=== PATIENT | male | born 1950 | race Caucasian/White ===

== ENCOUNTER 2021-02-20 16:41 | Inpatient (IN) | payer MEDICARE ==
--- NOTE | 2021-02-20 17:10 | ED ---
General Adult HPI - General Chief complaint: Shortness of Breath Stated complaint: SOB Time Seen by Provider: 02/20/21 17:01 Source: patient, EMS Mode of arrival: EMS Limitations: no limitations - History of Present Illness Initial comments: Patient presents the ED by ambulance for evaluation. Patient states that he suddenly became dyspneic about 2 hours ago after ambulating to the bathroom. Patient states that he gave himself a home neb treatment, and he states that his dyspnea has now improved significantly. Patient states that he has a history of COPD, and he states that he has a home nebulizer machine. Patient denies having any pain, fever or chills, headache, focal neuro deficit, chest pain or pressure, cough or cold symptoms, palpitations, dizziness, nausea/vomiting/diarrhea, abdominal pain, decreased urine output, dysuria or urinary symptoms, leg or calf swelling or pain, or any other symptoms or complaints. Patient states that he had his second dose of the Moderna Covid vaccine exactly 2 weeks ago today. - Related Data Allergies Allergy/AdvReac Type Severity Reaction Status Date / Time Sulfa (Sulfonamide Allergy Unknown Verified 02/20/21 16:49 Antibiotics) Review of Systems ROS Statement: Those systems with pertinent positive or pertinent negative responses have been documented in the HPI. ROS Other: All systems not noted in ROS Statement are negative. Past Medical History Past Medical History: COPD History of Any Multi-Drug Resistant Organisms: None Reported Past Surgical History: No Surgical Hx Reported Past Psychological History: No Psychological Hx Reported Smoking Status: Former smoker Past Alcohol Use History: None Reported Past Drug Use History: None Reported General Exam Limitations: no limitations General appearance: alert, in no apparent distress Head exam: Present: atraumatic, normocephalic Eye exam: Present: normal appearance, EOMI ENT exam: Present: mucous membranes moist Neck exam: Present: other (Trachea is in midline) Respiratory exam: Present: normal lung sounds bilaterally, other (Equal breath sounds bilaterally; scattered inspiratory and expiratory wheezes bilaterally). Absent: respiratory distress, rales, rhonchi, stridor Cardiovascular Exam: Present: regular rate, normal rhythm, normal heart sounds, other (Normal radial pulses bilaterally) GI/Abdominal exam: Present: soft. Absent: distended, tenderness, guarding Extremities exam: Present: other (Negative Homans sign bilaterally). Absent: tenderness, pedal edema, calf tenderness Neurological exam: Present: alert, oriented X3. Absent: motor sensory deficit Psychiatric exam: Present: normal affect, normal mood Skin exam: Present: warm, dry, intact, normal color Course Vital Signs 02/20/21 02/20/21 02/20/21 16:42 17:31 17:38 Temperature 97.7 F Pulse Rate 105 H 94 99 Respiratory 20 Rate Blood Pressure 153/106 O2 Sat by Pulse 99 Oximetry 02/20/21 02/20/21 20:00 20:28 Temperature Pulse Rate 98 96 Respiratory 18 18 Rate Blood Pressure 163/92 O2 Sat by Pulse 99 99 Oximetry - Reevaluation(s) Reevaluation #1: 02/20/21 20:00 Case, H&P, test results and ED management thus far discussed with CORINNE David. He accepts hospital admission on behalf of himself and Dr. Muro. He recommends cardiology consultation. He has no further recommendations at this time. 02/20/21 20:39 Patient states that his dyspnea has now improved, and he denies development of any new symptoms while in the ED. Patient is currently breathing comfortably. Patient is aware of his test results, and he agrees with hospital admission at this time. EKG Findings - EKG Comments: EKG Findings:: Normal sinus rhythm, ventricular rate of 95 bpm, normal ME and QRS intervals, normal QT interval, normal axis, anterolateral ST and T-wave abnormality, no old EKG is available for comparison at this time Medical Decision Making - Medical Decision Making Given the patient's sudden onset of dyspnea a couple hours prior to ED arrival and the abnormal appearance of his EKG with no comparison EKG available at this time, will admit the patient to the hospital for cardiac monitoring and serial troponins. Patient's initial troponin is within normal limits, but is borderline. The rest of the patient's labs are fairly unremarkable. He shouldn't imaging studies just show findings of COPD. CORINNE David has accepted hospital admission. An order for cardiology consultation was placed. - Lab Data Result diagrams: 02/20/21 17:18 02/20/21 17:18 Lab Results 02/20/21 02/20/21 02/20/21 Range/Units 17:18 17:18 17:18 WBC 11.7 H (3.8-10.6) k/uL RBC 4.83 (4.30-5.90) m/uL Hgb 15.7 (13.0-17.5) gm/dL Hct 45.8 (39.0-53.0) % MCV 94.7 (80.0-100.0) fL MCH 32.5 (25.0-35.0) pg MCHC 34.3 (31.0-37.0) g/dL RDW 13.1 (11.5-15.5) % Plt Count 379 (150-450) k/uL MPV 7.0 Neutrophils % 81 % Lymphocytes % 9 % Monocytes % 8 % Eosinophils % 1 % Basophils % 0 % Neutrophils # 9.5 H (1.3-7.7) k/uL Lymphocytes # 1.0 (1.0-4.8) k/uL Monocytes # 0.9 (0-1.0) k/uL Eosinophils # 0.1 (0-0.7) k/uL Basophils # 0.0 (0-0.2) k/uL PT 10.9 (9.0-12.0) sec INR 1.0 (<1.2) APTT 22.2 (22.0-30.0) sec D-Dimer 1.18 H (<0.60) mg/L FEU Sodium 132 L (137-145) mmol/L Potassium 5.0 (3.5-5.1) mmol/L Chloride 97 L (98-107) mmol/L Carbon Dioxide 26 (22-30) mmol/L Anion Gap 9 mmol/L BUN 17 (9-20) mg/dL Creatinine 0.60 L (0.66-1.25) mg/dL Est GFR (CKD-EPI)AfAm >90 (>60 ml/min/1.73 sqM) Est GFR (CKD-EPI)NonAf >90 (>60 ml/min/1.73 sqM) Glucose 108 H (74-99) mg/dL Plasma Lactic Acid Reynold (0.7-2.0) mmol/L Calcium 9.4 (8.4-10.2) mg/dL Total Bilirubin 0.5 (0.2-1.3) mg/dL AST 42 (17-59) U/L ALT 50 H (4-49) U/L Alkaline Phosphatase 70 (38-126) U/L Troponin I (0.000-0.034) ng/mL NT-Pro-B Natriuret Pep pg/mL Total Protein 6.8 (6.3-8.2) g/dL Albumin 4.3 (3.5-5.0) g/dL Coronavirus (PCR) (Not Detectd) 02/20/21 02/20/21 02/20/21 Range/Units 17:18 17:18 17:18 WBC (3.8-10.6) k/uL RBC (4.30-5.90) m/uL Hgb (13.0-17.5) gm/dL Hct (39.0-53.0) % MCV (80.0-100.0) fL MCH (25.0-35.0) pg MCHC (31.0-37.0) g/dL RDW (11.5-15.5) % Plt Count (150-450) k/uL MPV Neutrophils % % Lymphocytes % % Monocytes % % Eosinophils % % Basophils % % Neutrophils # (1.3-7.7) k/uL Lymphocytes # (1.0-4.8) k/uL Monocytes # (0-1.0) k/uL Eosinophils # (0-0.7) k/uL Basophils # (0-0.2) k/uL PT (9.0-12.0) sec INR (<1.2) APTT (22.0-30.0) sec D-Dimer (<0.60) mg/L FEU Sodium (137-145) mmol/L Potassium (3.5-5.1) mmol/L Chloride (98-107) mmol/L Carbon Dioxide (22-30) mmol/L Anion Gap mmol/L BUN (9-20) mg/dL Creatinine (0.66-1.25) mg/dL Est GFR (CKD-EPI)AfAm (>60 ml/min/1.73 sqM) Est GFR (CKD-EPI)NonAf (>60 ml/min/1.73 sqM) Glucose (74-99) mg/dL Plasma Lactic Acid Reynold 1.3 (0.7-2.0) mmol/L Calcium (8.4-10.2) mg/dL Total Bilirubin (0.2-1.3) mg/dL AST (17-59) U/L ALT (4-49) U/L Alkaline Phosphatase (38-126) U/L Troponin I 0.034 (0.000-0.034) ng/mL NT-Pro-B Natriuret Pep 2210 pg/mL Total Protein (6.3-8.2) g/dL Albumin (3.5-5.0) g/dL Coronavirus (PCR) (Not Detectd) 02/20/21 Range/Units 17:18 WBC (3.8-10.6) k/uL RBC (4.30-5.90) m/uL Hgb (13.0-17.5) gm/dL Hct (39.0-53.0) % MCV (80.0-100.0) fL MCH (25.0-35.0) pg MCHC (31.0-37.0) g/dL RDW (11.5-15.5) % Plt Count (150-450) k/uL MPV Neutrophils % % Lymphocytes % % Monocytes % % Eosinophils % % Basophils % % Neutrophils # (1.3-7.7) k/uL Lymphocytes # (1.0-4.8) k/uL Monocytes # (0-1.0) k/uL Eosinophils # (0-0.7) k/uL Basophils # (0-0.2) k/uL PT (9.0-12.0) sec INR (<1.2) APTT (22.0-30.0) sec D-Dimer (<0.60) mg/L FEU Sodium (137-145) mmol/L Potassium (3.5-5.1) mmol/L Chloride (98-107) mmol/L Carbon Dioxide (22-30) mmol/L Anion Gap mmol/L BUN (9-20) mg/dL Creatinine (0.66-1.25) mg/dL Est GFR (CKD-EPI)AfAm (>60 ml/min/1.73 sqM) Est GFR (CKD-EPI)NonAf (>60 ml/min/1.73 sqM) Glucose (74-99) mg/dL Plasma Lactic Acid Reynold (0.7-2.0) mmol/L Calcium (8.4-10.2) mg/dL Total Bilirubin (0.2-1.3) mg/dL AST (17-59) U/L ALT (4-49) U/L Alkaline Phosphatase (38-126) U/L Troponin I (0.000-0.034) ng/mL NT-Pro-B Natriuret Pep pg/mL Total Protein (6.3-8.2) g/dL Albumin (3.5-5.0) g/dL Coronavirus (PCR) Not Detected (Not Detectd) - Radiology Data Radiology results: report reviewed (Chest x-ray: Diffuse COPD; CT angiography chest: COPD with no diagnostic evidence of pulmonary embolism, age indeterminant compression deformity upper thoracic spine) Disposition Clinical Impression: COPD exacerbation, Abnormal EKG Disposition: ADMITTED IP TO THIS HOSP Condition: Stable When asked, does pt state using other controlled substances?: No Time of Disposition: 20:00
[2021-02-20] MEDS ORDERED: predniSONE 20 MG TAB PO STA (17:16)
[2021-02-20] MEDS ORDERED: IPRATROPIUM-ALBUTEROL 3 ML NEB INHALATION STA (17:16)
[2021-02-20 17:35] LABS: Basophils % (A) 0 %; Eosinophils # (A) 0.1 k/uL (0-0.7); Eosinophils % (A) 1 %; HCT 45.8 % (39.0-53.0); HGB 15.7 gm/dL (13.0-17.5); Lymphocytes % (A) 9 %; MCH 32.5 pg (25.0-35.0); MCHC 34.3 g/dL (31.0-37.0); MCV 94.7 fL (80.0-100.0); Monocytes # (A) 0.9 k/uL (0-1.0); Monocytes % (A) 8 %; Neutrophils # (A) 9.5 k/uL (1.3-7.7); Neutrophils % (A) 81 %; Platelet Count 379 k/uL (150-450); RBC 4.83 m/uL (4.30-5.90); RDW 13.1 % (11.5-15.5); WBC 11.7 k/uL (3.8-10.6)
[2021-02-20 17:41] LABS: ALT 50 U/L (4-49); AST 42 U/L (17-59); African American GFR (CKD) >90 (>60 ml/min/1.73 sqM); Albumin 4.3 g/dL (3.5-5.0); Alkaline Phosphatase 70 U/L (38-126); Anion Gap 9 mmol/L; Blood Urea Nitrogen 17 mg/dL (9-20); Calcium 9.4 mg/dL (8.4-10.2); Carbon Dioxide 26 mmol/L (22-30); Chloride 97 mmol/L (98-107); Glucose 108 mg/dL (74-99); Non-African American GFR(CKD) >90 (>60 ml/min/1.73 sqM); Sodium 132 mmol/L (137-145); Total Bilirubin 0.5 mg/dL (0.2-1.3); Total Protein 6.8 g/dL (6.3-8.2)
[2021-02-20 17:45] LABS: Partial Thromboplastin Time 22.2 sec (22.0-30.0); Prothrombin Time 10.9 sec (9.0-12.0)
[2021-02-20] MEDS ORDERED: ASPIRIN 81 MG PO STA (17:54)
[2021-02-20 18:05] LABS: D-Dimer 1.18 mg/L FEU (<0.60)
[2021-02-20] MEDS ORDERED: SODIUM CHLORIDE 0.9% 500 ML 500 ML IV ONE (18:05)
--- NOTE | 2021-02-20 18:08 | XR ---
EXAMINATION TYPE: XR chest 2V DATE OF EXAM: 02/20/2021 COMPARISON: 11/20/2012 TECHNIQUE: PA and lateral views submitted. HISTORY: Difficulty breathing FINDINGS: The lungs are clear and there is no pneumothorax, pleural effusion, or focal pneumonia. Hyperinflat ion suggests COPD. Suspected chronic rib deformities. Hypertrophic and degenerative change of the spi ne. There is a moderate wedge deformity midthoracic region of indeterminate age. IMPRESSION: 1. Diffuse COPD.
--- NOTE | 2021-02-20 20:08 | CT ---
EXAMINATION TYPE: CT chest angio for PE DATE OF EXAM: 02/20/2021 COMPARISON: 11/20/2012 HISTORY: Dyspnea and elevated d-dimer. CT DLP: 229.3 mGycm Automated exposure control for dose reduction was used. CONTRAST: CT Chest for pulmonary embolism performed with with IV Contrast, patient injected with 100ml mL of Is ovue 370. FINDINGS: LUNGS: The lungs are grossly clear, there is no concerning parenchymal mass or nodule identified. T here is no pleural effusion or pneumothorax seen. The tracheobronchial tree is patent. Hyperinflatio n suggests COPD. Incidental note made of an azygos lobe and fissure. MEDIASTINUM: There is satisfactory enhancement of the pulmonary artery and its branches, there is no CT evidence for pulmonary embolism. There are no greater than 1 cm hilar or mediastinal lymph nodes. No pericardial effusion is seen. Coronary artery atherosclerotic changes noted. OTHER: Multiple chronic appearing rib fractures noted. Moderate to severe in age-indeterminate compr ession fracture upper thoracic spine IMPRESSION: 1. COPD with no diagnostic evidence of pulmonary embolism. 2. Age-indeterminate compression deformity upper thoracic spine.
[2021-02-20] MEDS ORDERED: METOPROLOL TARTRATE 5 MG/5 ML VIAL IVP STA (23:32)
[2021-02-20] MEDS ORDERED: DILTIAZEM DRIP BOLUS FROM BAG 1 MG SOLN IV ONE (23:32)
[2021-02-20] MEDS ORDERED: HEPARIN SODIUM 1,000 UN/ML (10ML VL) IV ONE (23:38)
[2021-02-20] MEDS ORDERED: HEPARIN SODIUM 1,000 UN/ML (10ML VL) IV PRN (23:38)
[2021-02-20] MEDS ORDERED: DILTIAZEM 125 MG in SODIUM CHLORIDE 0.9% 100 ML IV SCH (23:45)
[2021-02-21] MEDS: HEPARIN SOD,PORK IN 0.45% NACL 25,000 UNIT in 0.45% NACL 1 250ML.BAG IV SCH (00:17)
[2021-02-21 00:49] LABS: Partial Thromboplastin Time 22.5 sec (22.0-30.0); Prothrombin Time 10.8 sec (9.0-12.0)
[2021-02-21] MEDS: IPRATROPIUM-ALBUTEROL 3 ML NEB INHALATION SCH ×6 (02:00→19:56)
[2021-02-21] MEDS ORDERED: IPRATROPIUM-ALBUTEROL 3 ML NEB INHALATION PRN (03:34)
--- NOTE | 2021-02-21 09:39 | P.CNPUL ---
History of Present Illness Consult date: 02/21/21 Requesting physician: August Muro Reason for consult: COPD Chief complaint: Shortness of breath History of present illness: This is a 70-year-old white male with history of COPD which was diagnosed over 12 years ago. Patient is at least a [id number] smoker, quit smoking about 15 years ago. Patient is maintained on bronchodilators in the form of updrafts/DuoNeb, is also on trelegy 1 puff daily. Never seen a [employer] before. His COPD is being managed by his primary care physician. Patient describes chronic shortness of breath with any activity. He is however not O2 dependent and not prednisone dependent. Patient was brought into the ER yesterday with sudden onset of shortness of breath, it happened while he was going to the bathroom. Patient gave himself an updraft treatment and his shortness of breath improved a bit, but he did not go back to his baseline. Hence he was brought into the ER, CT angiogram of the chest was negative for thromboembolic disease. No evidence of infiltrates. Patient was admitted, and this consult was initiated. Patient denies any headache no blurred vision no dizziness denies any chest pain, denies any wheezing. Denies any palpitations, no fever no chills no hemoptysis. Denies any nausea vomiting abdominal pain melena or hematemesis. Denies any dysuria frequency or urgency. His labs were basically unremarkable. His electrolytes were relatively normal. Renal profile was normal. Lactic acid was 1.3. Troponin was a bit elevated at 0.204, initially on admission was 0.034 hence the patient was started on heparin, and cardiology was consulted. Again the patient had no cardiac symptoms whatsoever during this presentation Review of Systems Constitutional: Negative HEENT: Negative Cardiac: Negative Pulmonary: As noted in HPI. GI: Negative Genitourinary: Negative Musculoskeletal: Negative Endocrine: Negative Hematologic: Negative Psychiatric: Negative Skin: Negative Neurologic: Negative Past Medical History Past Medical History: COPD History of Any Multi-Drug Resistant Organisms: None Reported Past Surgical History: No Surgical Hx Reported Past Psychological History: Depression Smoking Status: Former smoker Past Alcohol Use History: None Reported Past Drug Use History: None Reported - Past Family History Mother Family Medical History: COPD, CVA/TIA Medications and Allergies Home Medications Medication Instructions Recorded Confirmed Type Albuterol Sulfate [Ventolin HFA] 2 puff INHALATION RT-QID PRN 02/20/21 02/20/21 History Fluticasone/Umeclidin/Vilanter 1 puff INHALATION RT-DAILY 02/20/21 02/20/21 History [Liliya Ellipta 100-62.5-25] Ipratropium-Albuterol Nebulize 3 ml INHALATION RT-QID 02/20/21 02/20/21 History [Duoneb 0.5 mg-3 mg/3 ml Soln] Meloxicam 15 mg PO DAILY 02/20/21 02/20/21 History predniSONE 5 mg PO TID 02/20/21 02/20/21 History guaiFENesin [Mucinex] 600 mg PO DAILY 02/21/21 02/21/21 History Allergies Allergy/AdvReac Type Severity Reaction Status Date / Time Sulfa (Sulfonamide Allergy Unknown Verified 02/20/21 20:49 Antibiotics) Physical Exam Vitals: Vital Signs Temp Pulse Pulse Resp BP BP Pulse Ox 02/21/21 08:08 100 02/21/21 07:58 94 02/21/21 07:00 97.5 F L 90 16 121/71 98 02/21/21 03:31 102 H 95 02/21/21 02:00 98.0 F 102 H 18 119/79 96 02/21/21 01:12 97.7 F 118 H 24 143/95 96 02/20/21 23:00 98.4 F 99 18 151/92 96 02/20/21 22:00 98 18 94 L 02/20/21 21:00 85 18 02/20/21 20:28 96 18 163/92 99 02/20/21 20:00 98 18 99 02/20/21 17:38 99 02/20/21 17:31 94 02/20/21 16:42 97.7 F 105 H 20 153/106 99 Intake and Output 02/20/21 02/21/21 02/21/21 22:59 06:59 14:59 Output Total 600 600 Balance -600 -600 Output: Urine 600 600 Other: Voiding Method Urinal # Voids 1 Weight 70.76 kg 70.76 kg Physical Exam: Revealed 70-year-old white male in no distress, on 2 L nasal cannula, and his O2 saturations 98% Head: Atraumatic, normocephalic. HEENT:[Neck is supple.] [No neck masses.] [No thyromegaly.] [No JVD.] Chest: [Symmetrical chest expansion, diminished breath sound bilaterally minimal fine wheezing on forced expiratory maneuver only. No chest wall tenderness. Cardiac Exam: [Normal S1 and S2, no S3 gallop, no murmur.] Abdomen: [Soft, nontender, no megaly, no rebound, no guarding, normal bowel sounds.] Extremities: [No clubbing, no edema, no cyanosis.] Good pulses bilaterally Neurological Exam: [No focal neurologic deficit.] Alert and oriented 3. Musculoskeletal: No deformities noted limitation of range of motion Skin: No rashes, no clubbing. Psychiatric: Normal mood affect and normal mental status examination. Results - Laboratory Findings CBC and BMP: 02/20/21 17:18 02/20/21 17:18 PT/INR, D-dimer PT 10.8 sec (9.0-12.0) 02/21/21 00:06 INR 1.0 (<1.2) 02/21/21 00:06 D-Dimer 1.18 mg/L FEU (<0.60) H 02/20/21 17:18 Abnormal lab findings: Abnormal Labs 02/20/21 02/20/21 02/20/21 17:18 17:18 17:18 WBC 11.7 H Neutrophils # 9.5 H APTT D-Dimer 1.18 H Sodium 132 L Chloride 97 L Creatinine 0.60 L Glucose 108 H ALT 50 H Troponin I 02/20/21 02/21/21 02/21/21 21:57 00:06 06:53 WBC Neutrophils # APTT 34.6 H D-Dimer Sodium Chloride Creatinine Glucose ALT Troponin I 0.204 H* 0.205 H* - Diagnostic Findings Chest x-ray: image reviewed CT scan - chest: image reviewed (As noted in HPI.) Assessment and Plan Assessment: Impression: Acute exacerbation of COPD Possible non-ST elevation myocardial infarction Remote smoking history/ex-smoker. Recommendation: Continue present course of treatment including bronchodilators, Solu-Medrol, DuoNeb updrafts 4 times a day and when necessary, aspirin, heparin, Cardiac consultation for his elevated troponin and decision will be made by cardiology regarding his heparin. I expect that the patient will do quite well in the next 24 hours, that he could be transitioned to prednisone orally and could be considered for discharge planning as long as he is cleared by cardiology. We'll continue to follow Time with Patient: Greater than 30
[2021-02-21 10:34] LABS: Basophils # (A) 0.03 X 10*3/uL (0.00-0.10); Basophils % (A) 0.3 %; Eosinophils # (A) 0 X 10*3/uL (0.04-0.35); Eosinophils % (A) 0 %; HCT 44.3 % (39.6-50.0); HGB 15.1 g/dL (13.0-17.0); Lymphocytes # (A) 1.21 X 10*3/uL (0.90-5.00); Lymphocytes % (A) 10.3 %; MCH 32.3 pg (27.0-32.0); MCHC 34.1 g/dL (32.0-37.0); MCV 94.7 fL (80.0-97.0); Mean Platelet Volume 9.4 fL (9.5-12.2); Monocytes # (A) 1.07 X 10*3/uL (0.20-1.00); Monocytes % (A) 9.1 %; Neutrophils # (A) 9.39 X 10*3/uL (1.80-7.70); Neutrophils % (A) 79.6 %; Platelet Count 356 X 10*3/uL (140-440); RBC 4.68 X 10*6/uL (4.40-5.60); RDW 13.3 % (11.5-14.5); WBC 11.78 X 10*3/uL (4.50-10.00)
[2021-02-21 10:55] LABS: African American GFR (CKD) 117.2 (60.0-200.0); Albumin 4.3 g/dL (3.80-4.90); Albumin/Globulin Ratio 2.69 (1.60-3.17); Anion Gap 7.2 mmol/L (4.00-12.00); Calcium 9.2 mg/dL (8.7-10.3); Carbon Dioxide 25.8 mmol/L (21.6-31.8); Globulin 1.6 g/dL (1.6-3.3); Non-African American GFR(CKD) 101.2 (60.0-200.0); Potassium 4.6 mmol/L (3.5-5.5); Total Bilirubin 0.8 mg/dL (0.3-1.2); Total Protein 5.9 g/dL (6.2-8.2)
--- NOTE | 2021-02-21 11:35 | ECHOF ---
Referral Reason:LV function, abnormal trops MEASUREMENTS -------- HEIGHT: 190.5 cm WEIGHT: 70.8 kg BP: RVIDd: 5.2 cm (< 3.3) IVSd: 1.2 cm (0.6 - 1.1) LVIDd: 4.1 cm (3.9 - 5.3) LVPWd: 1.1 cm (0.6 - 1.1) IVSs: 1.5 cm LVIDs: 2.9 cm LVPWs: 1.1 cm Ao Diam: 2.9 cm (2.0 - 3.7) AV Cusp: 1.6 cm (1.5 - 2.6) LA Diam: 3.2 cm (2.7 - 3.8) MV E Gustavo: 0.47 m/s MV DecT: 106 ms MV A Gustavo: 0.68 m/s MV E/A Ratio: 0.70 RAP: 5.00 mmHg RVSP: 37.42 mmHg FINDINGS -------- Sinus rhythm. This was a technically difficult study with suboptimal views. The left ventricular size is normal. There is mild concentric left ventricular hypertrophy. Overa ll left ventricular systolic function is normal with, an EF between 55 - 60 %. The right ventricle is severely enlarged. The left atrial size is normal. The right atrium is mildly enlarged. 5.0mg of Lumason was utilized for enhancement of images Interatrial and interventricular septum intact. Trace amount of aortic regurgitation. There is no evidence of aortic stenosis. The mitral valve was not well visualized. No mitral regurgitation. [id number] tricuspid regurgitation present. There is mild pulmonary hypertension. The right ventricular systolic pressure, as measured by Doppler, is 37.42mmHg. Trace/mild (physiologic) pulmonic regurgitation. The aortic root size is normal. IVC Not well visulized. There is no pericardial effusion. CONCLUSIONS -------- 1. The left ventricular size is normal. 2. There is mild concentric left ventricular hypertrophy. 3. Overall left ventricular systolic function is normal with, an EF between 55 - 60 %. 4. The right ventricle is severely enlarged. 5. The right atrium is mildly enlarged. 6. Trace amount of aortic regurgitation. 7. [id number] tricuspid regurgitation present. 8. There is mild pulmonary hypertension. 9. The right ventricular systolic pressure, as measured by Doppler, is 37.42mmHg. 10. Trace/mild (physiologic) pulmonic regurgitation. CLINICAL TRIAL DATA MANAGER: Kelsie Rodriguez RDCS
[2021-02-21] MEDS: methylPREDNISolone SOD SUCCI 125 MG/2 ML VIAL IV SCH ×2 (11:47→18:03)
[2021-02-21] MEDS ORDERED: IPRATROPIUM-ALBUTEROL 3 ML NEB INHALATION SCH (12:00)
--- NOTE | 2021-02-21 12:34 | P.CRDCN ---
History of Present Illness Consult date: 02/21/21 History of present illness: HISTORY OF PRESENT ILLNESS: This is a 70-year-old male with a past medical history significant for COPD, depression, and former nicotine dependence. 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 We have been asked to see the patient in consultation for abnormal EKG and shortness of breath. Patient examined at the bedside. Patient states yesterday after walking to the bathroom he began to feel very short of breath. He states he took an updraft treatment which usually helps his shortness of breath but this time it was not relieved. Patient reports feeling a little nauseated time. He denied any chest pain. He denied any pain in the arms or back. Denies fever or chills. EKG reveals sinus mechanism with T-wave inversions laterally and biphasic T waves in V3V4 Chest xray diffuse COPD Laboratory data: WBC 11.78. Hemoglobin 15.1. Platelet count 356. Sodium 134. Potassium 4.6. BUN 15. Creatinine 0.6. Troponin 0.034. 0.204. 0.205. BNP 2210 Current home cardiac medications include none Echocardiogram completed revealed ejection fraction 55-60%, trace amount of mitral regurgitation, [id number] tricuspid regurgitation, and mild pulmonary hypertension. REVIEW OF SYSTEMS: At the time of my exam: CONSTITUTIONAL: Denies fever or chills. HEENT: Denies blurred vision, vision changes, or eye pain. Denies hemoptysis CARDIOVASCULAR: Denies chest pain. Denies orthopnea. Denies PND. Denies palpitations RESPIRATORY: Denies shortness of breath. GASTROINTESTINAL: Denies abdominal pain. Denies nausea or vomiting. HEMATOLOGIC: Denies bleeding disorders. GENITOURINARY: Denies any blood in urine. SKIN: Denies pruitis. Denies rash. PHYSICAL EXAM: VITAL SIGNS: Reviewed. GENERAL: Well-developed in no acute distress. HEENT: Head is normocephalic. Pupils are equal, round. Sclerae anicteric. Mucous membranes of the mouth are moist. Neck supple. No JVD or thyromegaly LUNGS: Respirations even and unlabored. Lungs with decreased air exchange bilaterally. HEART: Regular rate and rhythm. S1 and S2 heard. ABDOMEN: Soft. Nondistended. Nontender. EXTREMITIES: Normal range of motion. No clubbing or cyanosis. Peripheral pulses intact. No lower extremity edema NEUROLOGIC: Awake and alert. Oriented x 3. ASSESSMENT: Shortness of breath Acute exacerbation of COPD Abnormal troponins, possible Non-STEMI Depression Former nicotine dependence PLAN: Consult pulmonary for evaluation of COPD Continue IV heparin for another 24 hours Add aspirin and lipitor Ischemic workup to be completed when patient is medically stable Further recommendations pending patient course Nurse practitioner note has been reviewed by physician. Signing provider agrees with the documented findings, assessment, and plan of care. Past Medical History Past Medical History: COPD History of Any Multi-Drug Resistant Organisms: None Reported Past Surgical History: No Surgical Hx Reported Past Psychological History: Depression Smoking Status: Former smoker Past Alcohol Use History: None Reported Past Drug Use History: None Reported - Past Family History Mother Family Medical History: COPD, CVA/TIA Medications and Allergies Home Medications Medication Instructions Recorded Confirmed Type Albuterol Sulfate [Ventolin HFA] 2 puff INHALATION RT-QID PRN 02/20/21 02/20/21 History Fluticasone/Umeclidin/Vilanter 1 puff INHALATION RT-DAILY 02/20/21 02/20/21 History [Trelegy Ellipta 100-62.5-25] Ipratropium-Albuterol Nebulize 3 ml INHALATION RT-QID 02/20/21 02/20/21 History [Duoneb 0.5 mg-3 mg/3 ml Soln] Meloxicam 15 mg PO DAILY 02/20/21 02/20/21 History predniSONE 5 mg PO TID 02/20/21 02/20/21 History guaiFENesin [Mucinex] 600 mg PO DAILY 02/21/21 02/21/21 History Allergies Allergy/AdvReac Type Severity Reaction Status Date / Time Sulfa (Sulfonamide Allergy Unknown Verified 02/20/21 20:49 Antibiotics) Physical Exam Vitals: Vital Signs Temp Pulse Pulse Resp BP BP Pulse Ox 02/21/21 08:08 100 02/21/21 08:00 19 02/21/21 07:58 94 02/21/21 07:00 97.5 F L 90 16 121/71 98 02/21/21 03:31 102 H 95 02/21/21 02:00 98.0 F 102 H 18 119/79 96 02/21/21 01:12 97.7 F 118 H 24 143/95 96 02/20/21 23:00 98.4 F 99 18 151/92 96 02/20/21 22:00 98 18 94 L 02/20/21 21:00 85 18 02/20/21 20:28 96 18 163/92 99 02/20/21 20:00 98 18 99 02/20/21 17:38 99 02/20/21 17:31 94 02/20/21 16:42 97.7 F 105 H 20 153/106 99 Intake and Output 02/20/21 02/21/21 02/21/21 22:59 06:59 14:59 Output Total 600 600 Balance -600 -600 Output: Urine 600 600 Other: Voiding Method Urinal # Voids 1 Weight 70.76 kg 70.76 kg Results 02/21/21 06:53 02/21/21 06:53 Cardiac Enzymes 02/20/21 02/20/21 02/20/21 Range/Units 17:18 17:18 21:57 AST 42 (17-59) U/L Troponin I 0.034 0.204 H* (0.000-0.034) ng/mL 02/21/21 02/21/21 Range/Units 00:06 06:53 AST 40 H (17-59) U/L Troponin I 0.205 H* (0.000-0.034) ng/mL Coagulation 02/20/21 02/21/21 02/21/21 Range/Units 17:18 00:06 06:53 PT 10.9 10.8 (9.0-12.0) sec APTT 22.2 22.5 34.6 H (22.0-30.0) sec CBC 02/20/21 02/21/21 Range/Units 17:18 06:53 WBC 11.7 H 11.78 H (3.8-10.6) k/uL RBC 4.83 4.68 (4.30-5.90) m/uL Hgb 15.7 15.1 (13.0-17.5) gm/dL Hct 45.8 44.3 (39.0-53.0) % Plt Count 379 356 (150-450) k/uL Comprehensive Metabolic Panel 02/20/21 02/21/21 Range/Units 17:18 06:53 Sodium 132 L 134 L (137-145) mmol/L Potassium 5.0 4.6 (3.5-5.1) mmol/L Chloride 97 L 101 (98-107) mmol/L Carbon Dioxide 26 25.8 (22-30) mmol/L BUN 17 15.0 (9-20) mg/dL Creatinine 0.60 L 0.6 (0.66-1.25) mg/dL Glucose 108 H 125 H (74-99) mg/dL Calcium 9.4 9.2 (8.4-10.2) mg/dL AST 42 40 H (17-59) U/L ALT 50 H 52 H (4-49) U/L Alkaline Phosphatase 70 67 (38-126) U/L Total Protein 6.8 5.9 L (6.3-8.2) g/dL Albumin 4.3 4.30 (3.5-5.0) g/dL Current Medications Generic Name Dose Route Start Last Admin Trade Name Freq PRN Reason Stop Dose Admin Albuterol/Ipratropium 3 ml 02/21/21 03:34 Ipratropium-Albuterol 3 Ml Neb INHALATION RT-QID PRN Shortness Of Breath Or Wheezing Albuterol/Ipratropium 3 ml 02/21/21 08:00 02/21/21 07:58 Ipratropium-Albuterol 3 Ml Neb INHALATION 3 ml RT-QID [facility] Administration Aspirin 81 mg 02/22/21 09:00 Aspirin 81 Mg PO DAILY [facility] Atorvastatin Calcium 40 mg 02/21/21 21:00 Atorvastatin 40 Mg Tab PO HS [facility] Budesonide/Formoterol Fumarate 2 puff 02/21/21 20:00 Symbicort 160-4.5 Mcg Inhaler INHALATION RT-BID [facility] Guaifenesin 600 mg 02/22/21 09:00 Guaifenesin 600 Mg Tablet.Er PO DAILY [facility] Heparin Sodium (Porcine) 0 unit 02/20/21 23:38 Heparin Sodium 1,000 Un/Ml (10ml Vl) IV PER PROTOCOL PRN Low PTT Protocol Heparin Sodium/Sodium Chloride 250 mls @ 8.491 mls/hr 02/20/21 23:45 02/21/21 00:17 25,000 unit/ Sodium Chloride IV 12 units/kg/hr .Q24H [facility] 8.491 mls/hr Administration Protocol 12 UNITS/KG/HR Sodium Chloride 1,000 mls @ 100 mls/hr 02/21/21 10:15 Saline 0.9% IV .Q10H [facility] Methylprednisolone Sodium Succinate 60 mg 02/21/21 12:00 Methylprednisolone Sod Succi 125 Mg/2 Ml Vial IV Q6HR [facility] Intake and Output 02/20/21 02/21/21 02/21/21 22:59 06:59 14:59 Output Total 600 600 Balance -600 -600 Output: Urine 600 600 Other: Voiding Method Urinal # Voids 1 Weight 70.76 kg 70.76 kg 02/21/21 06:53 02/21/21 06:53
--- NOTE | 2021-02-21 13:19 | P.HPIM ---
History of Present Illness Patient is pleasant 78-year-old male came in with comments of shortness of breath progressively worsening going on for few weeks, patient to was found to have COPD. Patient also complaining of cough syrup clear sputum production. P atient denied any fever chills CT of the chest did not show any pulmonary embolism no infiltrates on the CT. Patient was started on IV steroids, pulmonary evaluated the patient patient was discharged back to oral steroids and inhalational treatments. Patient is also found to have elevated troponins although patient denied any chest pain at this time, EKG showed lateral T-wave inversions and biphasic T waves, BNP of around 2210, troponins ranged between 0.0342 0.204 Review of Systems REVIEW OF SYSTEMS: CONSTITUTIONAL: No fever, no malaise, no fatigue. HEENT: No recent visual problems or hearing problems. Denied any sore throat. CARDIOVASCULAR: Noorthopnea, PND, no palpitations, no syncope. PULMONARY:, no hemoptysis. GASTROINTESTINAL: No diarrhea, no nausea, no vomiting, no abdominal pain. NEUROLOGICAL: No headaches, no weakness, no numbness. HEMATOLOGICAL: Denies any bleeding or petechiae. GENITOURINARY: Denies any burning micturition, frequency, or urgency. MUSCULOSKELETAL/RHEUMATOLOGICAL: Denies any joint pain, swelling, or any muscle pain. ENDOCRINE: Denies any polyuria or polydipsia. The rest of the 14-point review of systems is negative. Past Medical History Past Medical History: COPD History of Any Multi-Drug Resistant Organisms: None Reported Past Surgical History: No Surgical Hx Reported Past Psychological History: Depression Smoking Status: Former smoker Past Alcohol Use History: None Reported Past Drug Use History: None Reported - Past Family History Mother Family Medical History: COPD, CVA/TIA Medications and Allergies Home Medications Medication Instructions Recorded Confirmed Type Albuterol Sulfate [Ventolin HFA] 2 puff INHALATION RT-QID PRN 02/20/21 02/20/21 History Fluticasone/Umeclidin/Vilanter 1 puff INHALATION RT-DAILY 02/20/21 02/20/21 History [Trelegy Ellipta 100-62.5-25] Ipratropium-Albuterol Nebulize 3 ml INHALATION RT-QID 02/20/21 02/20/21 History [Duoneb 0.5 mg-3 mg/3 ml Soln] Meloxicam 15 mg PO DAILY 02/20/21 02/20/21 History predniSONE 5 mg PO TID 02/20/21 02/20/21 History guaiFENesin [Mucinex] 600 mg PO DAILY 02/21/21 02/21/21 History Allergies Allergy/AdvReac Type Severity Reaction Status Date / Time Sulfa (Sulfonamide Allergy Unknown Verified 02/20/21 20:49 Antibiotics) Physical Exam Vitals: Vital Signs Temp Pulse Pulse Resp BP BP Pulse Ox 02/21/21 11:53 94 02/21/21 11:39 98 02/21/21 08:08 100 02/21/21 08:00 19 02/21/21 07:58 94 02/21/21 07:00 97.5 F L 90 16 121/71 98 02/21/21 03:31 102 H 95 02/21/21 02:00 98.0 F 102 H 18 119/79 96 02/21/21 01:12 97.7 F 118 H 24 143/95 96 02/20/21 23:00 98.4 F 99 18 151/92 96 02/20/21 22:00 98 18 94 L 02/20/21 21:00 85 18 02/20/21 20:28 96 18 163/92 99 02/20/21 20:00 98 18 99 02/20/21 17:38 99 02/20/21 17:31 94 02/20/21 16:42 97.7 F 105 H 20 153/106 99 Intake and Output 02/20/21 02/21/21 02/21/21 22:59 06:59 14:59 Output Total 600 600 Balance -600 -600 Output: Urine 600 600 Other: Voiding Method Urinal # Voids 1 Weight 70.76 kg 70.76 kg PHYSICAL EXAMINATION: GENERAL: The patient is alert and oriented x3, not in any acute distress. Well developed, well nourished. HEENT: Pupils are round and equally reacting to light. EOMI. No scleral icterus. No conjunctival pallor. Normocephalic, atraumatic. No pharyngeal erythema. No thyromegaly. CARDIOVASCULAR: S1 and S2 present. No murmurs, rubs, or gallops. PULMONARY: Diminished air entry into bilateral lung lynch minimal expiratory w heezing on the right side diminished on the left side. ABDOMEN: Soft, nontender, nondistended, normoactive bowel sounds. No palpable organomegaly. MUSCULOSKELETAL: No joint swelling or deformity. EXTREMITIES: No cyanosis, clubbing, or pedal edema. NEUROLOGICAL: Gross neurological examination did not reveal any focal deficits. SKIN: No rashes. Results CBC & Chem 7: 02/21/21 06:53 02/21/21 06:53 Labs: Abnormal Lab Results - Last 24 Hours (Table) 02/20/21 02/20/21 02/20/21 Range/Units 17:18 17:18 17:18 WBC 11.7 H (3.8-10.6) k/uL MCH (27.0-32.0) pg MPV (9.5-12.2) fL Immature Gran # (0.00-0.04) X 10*3/uL Neutrophils # 9.5 H (1.3-7.7) k/uL Monocytes # (0.20-1.00) X 10*3/uL Eosinophils # (0.04-0.35) X 10*3/uL APTT (22.0-30.0) sec D-Dimer 1.18 H (<0.60) mg/L FEU Sodium 132 L (137-145) mmol/L Chloride 97 L (98-107) mmol/L Creatinine 0.60 L (0.66-1.25) mg/dL BUN/Creatinine Ratio (12.00-20.00) Ratio Glucose 108 H (74-99) mg/dL AST (14-35) U/L ALT 50 H (4-49) U/L Troponin I (0.000-0.034) ng/mL Total Protein (6.2-8.2) g/dL 02/20/21 02/21/21 02/21/21 Range/Units 21:57 00:06 06:53 WBC 11.78 H (3.8-10.6) k/uL MCH 32.3 H (27.0-32.0) pg MPV 9.4 L (9.5-12.2) fL Immature Gran # 0.08 H (0.00-0.04) X 10*3/uL Neutrophils # 9.39 H (1.3-7.7) k/uL Monocytes # 1.07 H (0.20-1.00) X 10*3/uL Eosinophils # 0 L (0.04-0.35) X 10*3/uL APTT (22.0-30.0) sec D-Dimer (<0.60) mg/L FEU Sodium (137-145) mmol/L Chloride (98-107) mmol/L Creatinine (0.66-1.25) mg/dL BUN/Creatinine Ratio (12.00-20.00) Ratio Glucose (74-99) mg/dL AST (14-35) U/L ALT (4-49) U/L Troponin I 0.204 H* 0.205 H* (0.000-0.034) ng/mL Total Protein (6.2-8.2) g/dL 02/21/21 02/21/21 Range/Units 06:53 06:53 WBC (3.8-10.6) k/uL MCH (27.0-32.0) pg MPV (9.5-12.2) fL Immature Gran # (0.00-0.04) X 10*3/uL Neutrophils # (1.3-7.7) k/uL Monocytes # (0.20-1.00) X 10*3/uL Eosinophils # (0.04-0.35) X 10*3/uL APTT 34.6 H (22.0-30.0) sec D-Dimer (<0.60) mg/L FEU Sodium 134 L (137-145) mmol/L Chloride (98-107) mmol/L Creatinine (0.66-1.25) mg/dL BUN/Creatinine Ratio 25.00 H (12.00-20.00) Ratio Glucose 125 H (74-99) mg/dL AST 40 H (14-35) U/L ALT 52 H (4-49) U/L Troponin I (0.000-0.034) ng/mL Total Protein 5.9 L (6.2-8.2) g/dL Thrombosis Risk Factor Assmnt - Choose All That Apply Any of the Below Risk Factors Present?: Yes Each Factor Represents 1 point: Abnormal pulmonary function (COPD) Other Risk Factors: Yes Each Risk Factor Represents 2 Points: Age 61-74 years Other congenital or acquired thrombophilia - If yes, enter type in comment: No Thrombosis Risk Factor Assessment Total Risk Factor Score: 3 Thrombosis Risk Factor Assessment Level: Moderate Risk Assessment and Plan Plan: -Acute exacerbation of COPD: Continue with the assistance in addition treatments -Elevated troponin and possibility of non-ST elevation myocardial infarction. Cardiology evaluated the patient further intervention as per them once his COPD is better -Chronic low back pain -Depression For above-mentioned chronic medical problems patient will resume appropriate home medications
[2021-02-21] MEDS: SODIUM CHLORIDE 0.9% 1,000 ML IV SCH ×2 (16:20→21:11)
[2021-02-21] MEDS: SYMBICORT 160-4.5 MCG INHALER INHALATION SCH (19:56)
[2021-02-21 21:04] LABS: Chol/HDL Ratio 2.96; LDL Cholesterol,Calculated 77.4 mg/dL (0.0-131.0); VLDL Calculation 12.6 mg/dL (5.00-40.00)
[2021-02-21] MEDS: ATORVASTATIN 40 MG TAB PO SCH (21:08)
[2021-02-22] MEDS: HEPARIN SOD,PORK IN 0.45% NACL 25,000 UNIT in 0.45% NACL 1 250ML.BAG IV SCH (00:27)
[2021-02-22] MEDS: methylPREDNISolone SOD SUCCI 125 MG/2 ML VIAL IV SCH ×2 (00:33→05:39)
[2021-02-22] MEDS: SODIUM CHLORIDE 0.9% 1,000 ML IV SCH ×2 (05:40→16:27)
[2021-02-22] MEDS ORDERED: NON FORMULARY DRUG (Fluticasone/Umeclidin/Vilanter [Trelegy Ellipta 100-62.5-25] 1 EACH Bl INHALATION SCH (08:00)
[2021-02-22] MEDS: guaiFENesin 600 MG TABLET.ER PO SCH (08:51)
[2021-02-22] MEDS ORDERED: ASPIRIN 81 MG PO SCH (09:00)
[2021-02-22] MEDS: IPRATROPIUM-ALBUTEROL 3 ML NEB INHALATION SCH ×4 (09:01→20:02)
[2021-02-22] MEDS: SYMBICORT 160-4.5 MCG INHALER INHALATION SCH ×2 (09:01→20:02)
--- NOTE | 2021-02-22 10:32 | P.PN ---
Subjective Progress Note Date: 02/22/21 Principal diagnosis: Acute exacerbation of COPD This is a 70-year-old white male with history of COPD which was diagnosed over 12 years ago. Patient is at least a [id number] smoker, quit smoking about 15 years ago. Patient is maintained on bronchodilators in the form of updr afts/DuoNeb, is also on trelegy 1 puff daily. 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 His COPD is being managed by his primary care physician. Patient describes chronic shortness of breath with any activity. He is however not O2 dependent and not prednisone dependent. Patient was brought into the ER yesterday with sudden onset of shortness of breath, it happened while he was going to the bathroom. Patient gave himself an updraft treatment and his shortness of breath improved a bit, but he did not go back to his baseline. Hence he was brought into the ER, CT angiogram of the chest was negative for thromboembolic disease. No evidence of infiltrates. Patient was admitted, and this consult was initiated. Patient denies any headache no blurred vision no dizziness denies any chest pain, denies any wheezing. Denies any palpitations, no fever no chills no hemoptysis. Denies any nausea vomiting abdominal pain melena or hematemesis. Denies any dysuria frequency or urgency. His labs were basically unremarkable. His electrolytes were relatively normal. Renal profile was normal. Lactic acid was 1.3. Troponin was a bit elevated at 0.204, initially on admission was 0.034 hence the patient was started on heparin, and cardiology was consulted. Again the patient had no cardiac symptoms whatsoever during this presentation Patient was reevaluated today on 02/22/2021, patient is doing much better today, breathing a lot easier. Less cough and less wheezing less shortness of breath. Remains on bronchodilators and IV Solu-Medrol. Remains on heparin for possible non-ST elevation myocardial infarction. Patient is to be seen by cardiology again today, and decision will be made regarding his heparin and whether to pursue any further diagnostic workup for coronary artery disease. Pulmonary- kendall the patient is doing much better, and I will go ahead and transition the patient from IV Solu-Medrol to oral prednisone. Plan to consider discharge planning from the pulmonary perspective in the next 24 hours. Objective - Vital Signs Vital signs: Vital Signs Temp 97.4 F L 02/22/21 07:09 Pulse 92 02/22/21 09:14 Resp 22 02/22/21 07:09 BP 117/78 02/22/21 07:09 Pulse Ox 98 02/22/21 07:09 Intake & Output 02/21/21 02/22/21 02/22/21 18:59 06:59 18:59 Intake Total 134.582 95.567 240 Output Total 275 Balance -140.418 95.567 240 Intake: Intake, IV Titration 134.582 95.567 Amount Heparin Sod,Pork in 0.45% 134.582 95.567 NaCl 25,000 unit In 0.45 % NaCl 1 250ml.bag @ 12 UNITS/KG/HR 8.491 mls/hr IV .Q24H [facility] Rx#: [id number] Oral 240 Output: Urine 275 Other: # Voids 2 2 - Exam Physical Exam: Revealed 70-year-old white male in no distress, on 2 L nasal cannula, and his O2 saturations 98% Head: Atraumatic, normocephalic. HEENT:[Neck is supple.] [No neck masses.] [No thyromegaly.] [No JVD.] Chest: [Symmetrical chest expansion, slightly diminished breath sounds at the bases no rhonchi and no wheezes. Cardiac Exam: [Normal S1 and S2, no S3 gallop, no murmur.] Abdomen: [Soft, nontender, no megaly, no rebound, no guarding, normal bowel sounds.] Extremities: [No clubbing, no edema, no cyanosis.] Good pulses bilaterally Neurological Exam: [No focal neurologic deficit.] Alert and oriented 3. Musculoskeletal: No deformities noted limitation of range of motion Skin: No rashes, no clubbing. Psychiatric: Normal mood affect and normal mental status examination. - Labs CBC & Chem 7: 02/21/21 06:53 02/21/21 06:53 Labs: Abnormal Lab Results - Last 24 Hours (Table) 02/21/21 02/21/21 02/21/21 Range/Units 06:53 06:53 23:21 WBC 11.78 H (4.50-10.00) X 10*3/uL MCH 32.3 H (27.0-32.0) pg MPV 9.4 L (9.5-12.2) fL Immature Gran # 0.08 H (0.00-0.04) X 10*3/uL Neutrophils # 9.39 H (1.80-7.70) X 10*3/uL Monocytes # 1.07 H (0.20-1.00) X 10*3/uL Eosinophils # 0 L (0.04-0.35) X 10*3/uL APTT 55.4 H (22.0-30.0) sec Sodium 134 L (135-145) mmol/L BUN/Creatinine Ratio 25.00 H (12.00-20.00) Ratio Glucose 125 H (70-110) mg/dL AST 40 H (14-35) U/L ALT 52 H (10-49) U/L Total Protein 5.9 L (6.2-8.2) g/dL Assessment and Plan Assessment: Impression: Acute exacerbation of COPD Possible non-ST elevation myocardial infarction Remote smoking history/ex-smoker. Recommendation: Continue present course of treatment including bronchodilators, prednisone to replace Solu-Medrol, DuoNeb updrafts 4 times a day and when necessary, aspirin, heparin, Cardiology to decide regarding his heparin and whether to pursue any further diagnostic workup for coronary artery disease. Consider discharge planning in the next 24 hours if cleared by cardiology. Time with Patient: Less than 30
[2021-02-22] MEDS: predniSONE 20 MG TAB PO SCH (13:10)
[2021-02-22] MEDS ORDERED: ALPRAZolam 0.5 MG TAB PO PRN (13:17)
[2021-02-22] MEDS ORDERED: ALPRAZolam 0.25 MG TAB PO PRN (13:17)
[2021-02-22] MEDS ORDERED: NITROGLYCERIN SL TABS 0.4 MG TAB SUBLINGUAL PRN (13:17)
--- NOTE | 2021-02-22 13:17 | P.PN ---
Subjective Progress Note Date: 02/22/21 HISTORY OF PRESENT ILLNESS: 02/21/2021 This is a 70-year-old male with a past medical history significant for COPD, depression, and former nicotine dependence. 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 We have been asked to see the patient in consultation for abnormal EKG and shortness of breath. Patient examined at the bedside. Patient states yesterday after walking to the bathroom he began to feel very short of breath. He states he took an updraft treatment which usually helps his shortness of breath but this time it was not relieved. Patient reports feeling a little nauseated time. He denied any chest pain. He denied any pain in the arms or back. Denies fever or chills. EKG reveals sinus mechanism with T-wave inversions laterally and biphasic T waves in V3V4 Chest xray diffuse COPD Laboratory data: WBC 11.78. Hemoglobin 15.1. Platelet count 356. Sodium 134. Potassium 4.6. BUN 15. Creatinine 0.6. Troponin 0.034. 0.204. 0.205. BNP 2210 Current home cardiac medications include none Echocardiogram completed revealed ejection fraction 55-60%, trace amount of mitral regurgitation, [id number] tricuspid regurgitation, and mild pulmonary hypertension. 02/22/2021 Patient examined this morning at the bedside. Patient continues to report shortness of breath. He denies chest pain or pressure. He remains on IV heparin. PHYSICAL EXAM: VITAL SIGNS: Reviewed. GENERAL: Well-developed in no acute distress. HEENT: Head is normocephalic. Pupils are equal, round. Sclerae anicteric. Mucous membranes of the mouth are moist. Neck supple. No JVD or thyromegaly LUNGS: Respirations even and unlabored. Lungs with decreased air exchange bilaterally, although improved from yesterday. HEART: Regular rate and rhythm. S1 and S2 heard. ABDOMEN: Soft. Nondistended. Nontender. EXTREMITIES: Normal range of motion. No clubbing or cyanosis. Peripheral pulses intact. No lower extremity edema NEUROLOGIC: Awake and alert. Oriented x 3. ASSESSMENT: Shortness of breath Acute exacerbation of COPD Abnormal troponins, possible Non-STEMI Depression Former nicotine dependence PLAN: Discontinue IV heparin Continue additional cardiac medications Patient to undergo cardiac cath tomorrow with Dr. Burris Further recommendations pending patient course Nurse practitioner note has been reviewed by physician. Signing provider agrees with the documented findings, assessment, and plan of care. Objective - Vital Signs Vital signs: Vital Signs Temp 97.4 F L 02/22/21 07:09 Pulse 92 02/22/21 09:14 Resp 22 02/22/21 07:09 BP 117/78 02/22/21 07:09 Pulse Ox 98 02/22/21 07:09 Intake & Output 02/21/21 02/22/21 02/22/21 18:59 06:59 18:59 Intake Total 134.582 95.567 240 Output Total 275 Balance -140.418 95.567 240 Intake: Intake, IV Titration 134.582 95.567 Amount Heparin Sod,Pork in 0.45% 134.582 95.567 NaCl 25,000 unit In 0.45 % NaCl 1 250ml.bag @ 12 UNITS/KG/HR 8.491 mls/hr IV .Q24H [facility] Rx#: [id number] Oral 240 Output: Urine 275 Other: # Voids 2 2 - Labs CBC & Chem 7: 02/21/21 06:53 02/21/21 06:53 Labs: Abnormal Lab Results - Last 24 Hours (Table) 02/21/21 Range/Units 23:21 APTT 55.4 H (22.0-30.0) sec
--- NOTE | 2021-02-22 14:27 | P.PN ---
Subjective Progress Note Date: 02/22/21 Patient is pleasant 78-year-old male came in with comments of shortness of breath progressively worsening going on for few weeks, patient to was found to have COPD. Patient also complaining of cough syrup clear sputum production. Patient denied any fever chills CT of the chest did not show any pulmonary embolism no infiltrates on the CT. Patient was started on IV steroids, pulmonary evaluated the patient patient was discharged back to oral steroids and inhalational treatments. Patient is also found to have elevated troponins although patient denied any chest pain at this time, EKG showed lateral T-wave inversions and biphasic T waves, BNP of around 2210, troponins ranged between 0.0342 0.204 02/22/2021 Patient is seen and evaluated in follow-up currently continues to be short of breath maintained on 2 L via nasal cannula. Patient was seen and evaluated by cardiology and undergoing cardiac catheterization in the morning. Patient states he feels much better on 2 L of oxygen and will do home O2 eval. Patient is maintained on DuoNeb treatments along with oral steroids and will continue. Patient was on IV heparin and discontinuing per cardiology. Will repeat a.m. labs. Review of systems: Constitutional: No reports of fatigue, fever, or chills Cardiovascular: Reports intermittent chest pain although states has improved since initiating breathing treatments and oxygen Respiratory: reports continued shortness of breath and cough GI: No reports of nausea, vomiting, or diarrhea : No reports of dysuria or retention Neurovascular: No reports of weakness or numbness All medications have been reviewed Objective - Vital Signs Vital signs: Vital Signs Temp 97.4 F L 02/22/21 07:09 Pulse 92 02/22/21 09:14 Resp 22 02/22/21 07:09 BP 117/78 02/22/21 07:09 Pulse Ox 98 02/22/21 07:09 Intake & Output 02/21/21 02/22/21 02/22/21 18:59 06:59 18:59 Intake Total 134.582 95.567 240 Output Total 275 Balance -140.418 95.567 240 Intake: Intake, IV Titration 134.582 95.567 Amount Heparin Sod,Pork in 0.45% 134.582 95.567 NaCl 25,000 unit In 0.45 % NaCl 1 250ml.bag @ 12 UNITS/KG/HR 8.491 mls/hr IV .Q24H KAMRAN Rx#: [id number] Oral 240 Output: Urine 275 Other: # Voids 2 2 - Labs CBC & Chem 7: 02/21/21 06:53 02/21/21 06:53 Labs: Abnormal Lab Results - Last 24 Hours (Table) 02/21/21 02/21/21 02/21/21 Range/Units 06:53 06:53 23:21 WBC 11.78 H (4.50-10.00) X 10*3/uL MCH 32.3 H (27.0-32.0) pg MPV 9.4 L (9.5-12.2) fL Immature Gran # 0.08 H (0.00-0.04) X 10*3/uL Neutrophils # 9.39 H (1.80-7.70) X 10*3/uL Monocytes # 1.07 H (0.20-1.00) X 10*3/uL Eosinophils # 0 L (0.04-0.35) X 10*3/uL APTT 55.4 H (22.0-30.0) sec Sodium 134 L (135-145) mmol/L BUN/Creatinine Ratio 25.00 H (12.00-20.00) Ratio Glucose 125 H (70-110) mg/dL AST 40 H (14-35) U/L ALT 52 H (10-49) U/L Total Protein 5.9 L (6.2-8.2) g/dL Assessment and Plan Assessment: -Acute exacerbation of COPD: Continue with oral steroids and breathing inhalational treatments. Her only maintained on 2 L of oxygen and will assess for home O2 -Elevated troponin and possibility of non-ST elevation myocardial infarction. Cardiology planning on cardiac catheterization in the morning. IV heparin has been discontinued -Chronic low back pain -Depression Plan: Continue with breathing treatments and oral steroids. Will discuss with case management and have nursing staff assess for home O2 as he continues to be dysp neic and maintained on 2 L via nasal cannula. Will repeat a.m. labs and await cardiac catheterization report.
[2021-02-22] MEDS: ATORVASTATIN 40 MG TAB PO SCH (19:22)
[2021-02-22] MEDS ORDERED: SODIUM CHLORIDE 0.9% 1,000 ML in EMPTY BAG 1 BAG IV ONE (23:30)
[2021-02-23] MEDS: SODIUM CHLORIDE 0.9% 1,000 ML IV SCH ×2 (02:44→14:00)
[2021-02-23 06:17] LABS: Basophils % (A) 0 %; Eosinophils % (A) 0 %; HGB 14.6 gm/dL (13.0-17.5); Lymphocytes % (A) 5 %; MCH 32.9 pg (25.0-35.0); MCHC 34.7 g/dL (31.0-37.0); MCV 94.8 fL (80.0-100.0); Monocytes # (A) 1.3 k/uL (0-1.0); Monocytes % (A) 6 %; Neutrophils # (A) 17.8 k/uL (1.3-7.7); Neutrophils % (A) 88 %; Platelet Count 346 k/uL (150-450); RBC 4.42 m/uL (4.30-5.90); WBC 20.3 k/uL (3.8-10.6)
[2021-02-23 06:41] LABS: African American GFR (CKD) >90 (>60 ml/min/1.73 sqM); Anion Gap 6 mmol/L; Blood Urea Nitrogen 20 mg/dL (9-20); Calcium 8.7 mg/dL (8.4-10.2); Carbon Dioxide 27 mmol/L (22-30); Chloride 96 mmol/L (98-107); Glucose 83 mg/dL (74-99); Non-African American GFR(CKD) >90 (>60 ml/min/1.73 sqM); Potassium 4.7 mmol/L (3.5-5.1); Sodium 129 mmol/L (137-145)
[2021-02-23] MEDS ORDERED: HEPARIN SODIUM,PORCINE 10,000 UNIT in SODIUM CHLORIDE 0.9% 1,000 ML IRRIGATION PRN (07:00)
[2021-02-23] MEDS ORDERED: ASPIRIN 325 MG TAB PO ONE (07:00)
[2021-02-23] MEDS ORDERED: ATORVASTATIN 80 MG TAB PO ONE (07:00)
[2021-02-23] MEDS ORDERED: HEPARIN SODIUM,PORCINE 2,500 UNIT in SODIUM CHLORIDE 0.9% 250 ML IRRIGATION PRN (07:00)
[2021-02-23] MEDS: guaiFENesin 600 MG TABLET.ER PO SCH (08:16)
[2021-02-23] MEDS: predniSONE 20 MG TAB PO SCH (08:16)
[2021-02-23] MEDS: SYMBICORT 160-4.5 MCG INHALER INHALATION SCH ×2 (08:36→20:55)
[2021-02-23] MEDS: IPRATROPIUM-ALBUTEROL 3 ML NEB INHALATION SCH ×4 (08:36→20:55)
[2021-02-23] MEDS ORDERED: VERAPAMIL 2.5 MG/ML 2 ML AMP ONE (10:01)
[2021-02-23] MEDS ORDERED: LIDOCAINE 1% INJ 10MG/ML (20 ML MDV) ONE (10:01)
[2021-02-23] MEDS ORDERED: IV FLUID CONTINUATION 600 ML IV ONE (10:20)
[2021-02-23] MEDS ORDERED: MIDAZOLAM 2 MG/2 ML VIAL IVP ONE (10:28)
[2021-02-23] MEDS ORDERED: LIDOCAINE 1% INJ 10MG/ML (20 ML MDV) SQ ONE (10:35)
[2021-02-23] MEDS ORDERED: VERAPAMIL SYRINGE (5 MG/10 ML) INTRAARTER ONE (10:37)
[2021-02-23] MEDS ORDERED: HEPARIN SODIUM 1,000 UN/ML (10ML VL) ONE (10:37)
[2021-02-23] MEDS ORDERED: HEPARIN SODIUM 1,000 UN/ML (10ML VL) IV ONE (10:39)
[2021-02-23] MEDS ORDERED: IOPAMIDOL-370 125ML BTL INJ ONE (10:51)
[2021-02-23] MEDS ORDERED: RX INFO: IV CONTRAST WAS GIVEN 1 EACH MISC MISCELLANE PRN (10:55)
[2021-02-23] MEDS ORDERED: SODIUM CHLORIDE 0.9% 1,000 ML IV SCH (11:00)
--- NOTE | 2021-02-23 11:46 | CC ---
CARDIAC CATHETERIZATION REPORT DATE OF SERVICE: 02/23/2021 PERFORMING PHYSICIAN: Yordan Burris MD. PROCEDURE PERFORMED: 1. Selective right and left coronary angiogram. 2. Left heart catheterization. INDICATION: This is a 70-year-old gentleman with history of smoking and also known COPD, was admitted to the hospital with increasing shortness of breath and COPD exacerbation. The troponin came into be slightly abnormal with abnormalities on the EKG as well. The patient was seen by Dr. Rodrigues who recommended proceeding with coronary angiogram. APPROACH: Right radial artery. COMPLICATION: None. LEVEL OF SEDATION: Moderate with sedation length of 17 minutes. PROCEDURE DESCRIPTION: After obtaining an informed consent, the patient was brought to the cardiac cathode ray tube salvage processor. The right radial artery was cannulated using micropuncture technique, the micropuncture wire passed easily then I placed a 6-Anguillan sheath in the right radial artery. Selective right and left coronary angiogram performed using JR4 and JL3.5 catheters. Left heart catheterization was performed using 5-Anguillan pigtail catheter. The procedure was completed without any complication. SELECTIVE CORONARY ANGIOGRAM: 1. The right coronary artery is a large caliber vessel and is a dominant vessel. The RCA has mild disease only. Distally, it bifurcates into PDA and PLV branches and both appeared to be angiographically normal. 2. The left main is angiographically normal. It bifurcates into LCX and LAD. 3. The LCX is a large caliber vessel. It is a nondominant vessel. The proximal left circumflex appeared to be angiographically normal. The mid left circumflex is angiographically normal and gives rise into a large OM which appeared to be angiographically normal. The left circumflex after that becomes a small to medium caliber vessel with about 2 mm in diameter with a critical lesion appeared to be in the range of 99.9%. 4. The LAD: The LAD is a large caliber vessel. The proximal LAD appeared to be extremely calcified. The mid LAD has mild disease only and the LAD distally appeared to be angiographically normal. The LAD in the midportion gives rise into a large diagonal branch which appeared to be angiographically normal. HEMODYNAMICS: The LVEDP was about 10 to 12 mmHg without significant gradient across the aortic valve. CONCLUSION: 1. Extremely calcified left coronary system, mostly in the proximal LAD distribution. 2. Critical disease involving the mid to distal left circumflex where the left circumflex becomes a small caliber vessel about 2 mm in diameter. 3. Normal LVEDP. POSTPROCEDURE MANAGEMENT: 1. Giving the above anatomy and the absence of any chest pain or chest discomfort, I advised a conservative medical approach and aggressive cholesterol control. 2. If the patient develops any chest pain or chest discomfort, he might benefit from PCI of the left circumflex. JEREMÍAS / LEEN: [id number] /
--- NOTE | 2021-02-23 12:11 | P.PN ---
Subjective Progress Note Date: 02/23/21 Principal diagnosis: Acute exacerbation of COPD This is a 70-year-old white male with history of COPD which was diagnosed over 12 years ago. Patient is at least a [id number] smoker, quit smoking about 15 years ago. Patient is maintained on bronchodilators in the form of updr afts/DuoNeb, is also on trelegy 1 puff daily. 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 His COPD is being managed by his primary care physician. Patient describes chronic shortness of breath with any activity. He is however not O2 dependent and not prednisone dependent. Patient was brought into the ER yesterday with sudden onset of shortness of breath, it happened while he was going to the bathroom. Patient gave himself an updraft treatment and his shortness of breath improved a bit, but he did not go back to his baseline. Hence he was brought into the ER, CT angiogram of the chest was negative for thromboembolic disease. No evidence of infiltrates. Patient was admitted, and this consult was initiated. Patient denies any headache no blurred vision no dizziness denies any chest pain, denies any wheezing. Denies any palpitations, no fever no chills no hemoptysis. Denies any nausea vomiting abdominal pain melena or hematemesis. Denies any dysuria frequency or urgency. His labs were basically unremarkable. His electrolytes were relatively normal. Renal profile was normal. Lactic acid was 1.3. Troponin was a bit elevated at 0.204, initially on admission was 0.034 hence the patient was started on heparin, and cardiology was consulted. Again the patient had no cardiac symptoms whatsoever during this presentation Patient was reevaluated today on 02/22/2021, patient is doing much better today, breathing a lot easier. Less cough and less wheezing less shortness of breath. Remains on bronchodilators and IV Solu-Medrol. Remains on heparin for possible non-ST elevation myocardial infarction. Patient is to be seen by cardiology again today, and decision will be made regarding his heparin and whether to pursue any further diagnostic workup for coronary artery disease. Pulmonary- kendall the patient is doing much better, and I will go ahead and transition the patient from IV Solu-Medrol to oral prednisone. Plan to consider discharge planning from the pulmonary perspective in the next 24 hours. Reevaluated today on 02/23/2021, patient is doing well, his pulmonary status is improving, however the patient is scheduled to undergo cardiac catheterization today. No cough no wheezing no shortness of breath, no chest pain. Patient is on 2 L nasal cannula and his O2 sats is 99%. Hence option would be discontinued. Objective - Vital Signs Vital signs: Vital Signs Temp 97.7 F 02/23/21 11:11 Pulse 96 02/23/21 11:25 Resp 18 02/23/21 11:11 BP 146/82 02/23/21 11:25 Pulse Ox 99 02/23/21 11:25 Intake & Output 02/22/21 02/23/21 02/23/21 18:59 06:59 18:59 Intake Total 240 340 Output Total 550 Balance 240 -210 Intake: IV 100 Oral 240 240 Output: Urine 550 Other: Voiding Method Urinal Urinal # Voids 2 2 2 # Bowel Movements 1 0 - Exam Physical Exam: Revealed 70-year-old white male in no distress, on 2 L nasal cannula, Head: Atraumatic, normocephalic. HEENT:[Neck is supple.] [No neck masses.] [No thyromegaly.] [No JVD.] Chest: [Symmetrical chest expansion, slightly diminished breath sounds at the bases no rhonchi and no wheezes. Cardiac Exam: [Normal S1 and S2, no S3 gallop, no murmur.] Abdomen: [Soft, nontender, no megaly, no rebound, no guarding, normal bowel sounds.] Extremities: [No clubbing, no edema, no cyanosis.] Good pulses bilaterally Neurological Exam: [No focal neurologic deficit.] Alert and oriented 3. Musculoskeletal: No deformities noted limitation of range of motion Skin: No rashes, no clubbing. Psychiatric: Normal mood affect and normal mental status examination. - Labs CBC & Chem 7: 02/23/21 04:54 02/23/21 04:54 Labs: Abnormal Lab Results - Last 24 Hours (Table) 02/23/21 02/23/21 Range/Units 04:54 04:54 WBC 20.3 H (3.8-10.6) k/uL Neutrophils # 17.8 H (1.3-7.7) k/uL Monocytes # 1.3 H (0-1.0) k/uL Sodium 129 L (137-145) mmol/L Chloride 96 L (98-107) mmol/L Creatinine 0.55 L (0.66-1.25) mg/dL Assessment and Plan Assessment: Impression: Acute exacerbation of COPD Possible non-ST elevation myocardial infarction Remote smoking history/ex-smoker. Recommendation: Continue present course of treatment including bronchodilators, prednisone , DuoNeb updrafts 4 times a day and when necessary, aspirin, heparin, Cardiac catheterization today by cardiology. Consider discharge planning in the next 24 hours however that will depend on the cardiac findings on the cardiac cath today. Time with Patient: Less than 30
--- NOTE | 2021-02-23 13:53 | P.PN ---
Subjective Progress Note Date: 02/23/21 Patient is pleasant 78-year-old male came in with comments of shortness of breath progressively worsening going on for few weeks, patient to was found to have COPD. Patient also complaining of cough syrup clear sputum production. Patient denied any fever chills CT of the chest did not show any pulmonary embolism no infiltrates on the CT. Patient was started on IV steroids, pulmonary evaluated the patient patient was discharged back to oral steroids and inhalational treatments. Patient is also found to have elevated troponins although patient denied any chest pain at this time, EKG showed lateral T-wave inversions and biphasic T waves, BNP of around 2210, troponins ranged between 0.0342 0.204 02/22/2021 Patient is seen and evaluated in follow-up currently continues to be short of breath maintained on 2 L via nasal cannula. Patient was seen and evaluated by cardiology and undergoing cardiac catheterization in the morning. Patient states he feels much better on 2 L of oxygen and will do home O2 eval. Patient is maintained on DuoNeb treatments along with oral steroids and will continue. Patient was on IV heparin and discontinuing per cardiology. Will repeat a.m. labs. 02/23/2021 Patient is seen and evaluated this morning currently on 4 L of oxygen stating he is dyspneic although there appears to be a component of anxiety as well as patient is scheduled to undergo cardiac catheterization today. at the bedside slightly elevating the anxiety level. Will perform home O2 eval although oxygen saturations are 98-100% on 2 L. Patient is maintained on oral steroids along with breathing inhalational treatments and will continue. White blood count slightly elevated at 20.3 although patient denies any fevers or worsening shortness of breath or cough. Hemoglobin is stable at 14.6. Sodium was found to be slightly low at 129 and will discontinue IV fluids, potassium is 4.6 current creatinine is 0.55. Review of systems: Constitutional: No reports of fatigue, fever, or chills Cardiovascular: Reports of chest pain or palpitations Respiratory: reports continued shortness of breath and cough although feels improved with oxygen GI: No reports of nausea, vomiting, or diarrhea : No reports of dysuria or retention Neurovascular: No reports of weakness or numbness All medications have been reviewed Objective - Vital Signs Vital signs: Vital Signs Temp 98.0 F 02/23/21 02:20 Pulse 100 02/23/21 08:49 Resp 18 02/23/21 07:51 BP 153/83 02/23/21 02:20 Pulse Ox 99 02/23/21 02:20 Intake & Output 02/22/21 02/23/21 02/23/21 18:59 06:59 18:59 Intake Total 240 240 Balance 240 240 Intake: Oral 240 240 Other: Voiding Method Urinal Urinal # Voids 2 2 2 # Bowel Movements 1 - Exam GENERAL: The patient is alert and oriented x3, not in any acute distress. Anxious. Well developed, well nourished. HEENT: Pupils are round and equally reacting to light. EOMI. No scleral icterus. No conjunctival pallor. Normocephalic, atraumatic. No pharyngeal erythema. No thyromegaly. CARDIOVASCULAR: S1 and S2 present. No murmurs, rubs, or gallops. PULMONARY: Diminished air entry into bilateral lung lynch minimal expiratory wheezing on the right side diminished on the left side. ABDOMEN: Soft, nontender, nondistended, normoactive bowel sounds. No palpable organomegaly. MUSCULOSKELETAL: No joint swelling or deformity. EXTREMITIES: No cyanosis, clubbing, or pedal edema. NEUROLOGICAL: Gross neurological examination did not reveal any focal deficits. SKIN: No rashes. - Labs CBC & Chem 7: 02/23/21 04:54 02/23/21 04:54 Labs: Abnormal Lab Results - Last 24 Hours (Table) 02/23/21 02/23/21 Range/Units 04:54 04:54 WBC 20.3 H (3.8-10.6) k/uL Neutrophils # 17.8 H (1.3-7.7) k/uL Monocytes # 1.3 H (0-1.0) k/uL Sodium 129 L (137-145) mmol/L Chloride 96 L (98-107) mmol/L Creatinine 0.55 L (0.66-1.25) mg/dL Assessment and Plan Assessment: -Acute exacerbation of COPD: Continue with oral steroids and breathing inhalational treatments. Patient currently maintained on 2 L of oxygen and will assess for home O2 although oxygen saturations are 98-100% and will possibly not qualify. Discussed with nursing staff about performing home O2 eval. -Hyponatremia, possibly hypervolemic hyponatremia. Will discontinue IV fluids and repeat BMP -Elevated troponin and possibility of non-ST elevation myocardial infarction. Patient underwent cardiac catheterization today with no stenting recommending medical management. -Chronic low back pain -Depression -Anxiety -Full code Plan: Continue with breathing treatments and oral steroids. Discussed with case neida kishore and having nursing staff assess for home O2 as he continues to be dyspneic and maintained on 2 L via nasal cannula. Patient is currently on bed rest status post cardiac catheterization and will perform eval after. Continue IV fluids and will repeat BMP is sodium was 129 today. Anticipate discharge in 24 hours.
[2021-02-23] MEDS: ATORVASTATIN 40 MG TAB PO SCH (22:46)
[2021-02-24] MEDS: guaiFENesin 600 MG TABLET.ER PO SCH (07:37)
[2021-02-24] MEDS: predniSONE 20 MG TAB PO SCH (07:37)
--- NOTE | 2021-02-24 07:48 | P.PN ---
Subjective Progress Note Date: 02/24/21 Principal diagnosis: Coronary artery disease This is a 70-year-old gentleman who was admitted to the hospital initially with increasing shortness of breath. He does have chronic obstructive pulmonary disease. He underwent a heart catheterization for abnormal cardiac enzymes and that revealed severe disease involving the small size left circumflex coronary artery in the AV groove and maximize medical treatment was advised He was seen this morning. He has no chest pain or chest discomfort and he stated that the shortness of breath has improved. He is on statin. I'm going to add aspirin to the current medical regimen. From the cardiovascular standpoint of view, the patient can be discharged home Objective - Vital Signs Vital signs: Vital Signs Temp 98.8 F 02/24/21 02:27 Pulse 94 02/24/21 02:27 Resp 18 02/24/21 02:27 BP 120/73 02/24/21 02:27 Pulse Ox 94 L 02/24/21 02:27 Intake & Output 02/23/21 02/24/21 02/24/21 18:59 06:59 18:59 Intake Total 340 325 Output Total 550 300 Balance -210 25 Intake: IV 100 Oral 240 325 Output: Urine 550 300 Other: Voiding Method Urinal Urinal # Voids 1 # Bowel Movements 0 - Constitutional General appearance: Present: no acute distress - Respiratory Respiratory: bilateral: diminished - Cardiovascular Rhythm: regular Heart sounds: normal: S1, S2 - Labs CBC & Chem 7: 02/23/21 04:54 02/23/21 04:54 Assessment and Plan Assessment: Assessment #1 COPD exacerbation #2 mildly abnormal enzymes #3 coronary artery disease Plan #1 start the patient on aspirin #2 continue high intensity statin #3 the patient can be discharged home
[2021-02-24 07:56] LABS: African American GFR (CKD) >90 (>60 ml/min/1.73 sqM); Anion Gap 5 mmol/L; Blood Urea Nitrogen 20 mg/dL (9-20); Calcium 8.5 mg/dL (8.4-10.2); Carbon Dioxide 27 mmol/L (22-30); Chloride 94 mmol/L (98-107); Glucose 76 mg/dL (74-99); Non-African American GFR(CKD) >90 (>60 ml/min/1.73 sqM); Potassium 3.9 mmol/L (3.5-5.1); Sodium 126 mmol/L (137-145)
[2021-02-24] MEDS: IPRATROPIUM-ALBUTEROL 3 ML NEB INHALATION SCH ×4 (08:12→21:27)
[2021-02-24] MEDS: SYMBICORT 160-4.5 MCG INHALER INHALATION SCH ×2 (08:12→21:27)
[2021-02-24] MEDS: ASPIRIN 81 MG PO SCH (09:03)
--- NOTE | 2021-02-24 10:22 | P.PN ---
Subjective Progress Note Date: 02/24/21 Principal diagnosis: Acute exacerbation of COPD This is a 70-year-old white male with history of COPD which was diagnosed over 12 years ago. Patient is at least a 50-ecjk-mxay smoker, quit smoking about 15 years ago. Patient is maintained on bronchodilators in the form of updr afts/DuoNeb, is also on trelegy 1 puff daily. 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 His COPD is being managed by his primary care physician. Patient describes chronic shortness of breath with any activity. He is however not O2 dependent and not prednisone dependent. Patient was brought into the ER yesterday with sudden onset of shortness of breath, it happened while he was going to the bathroom. Patient gave himself an updraft treatment and his shortness of breath improved a bit, but he did not go back to his baseline. Hence he was brought into the ER, CT angiogram of the chest was negative for thromboembolic disease. No evidence of infiltrates. Patient was admitted, and this consult was initiated. Patient denies any headache no blurred vision no dizziness denies any chest pain, denies any wheezing. Denies any palpitations, no fever no chills no hemoptysis. Denies any nausea vomiting abdominal pain melena or hematemesis. Denies any dysuria frequency or urgency. His labs were basically unremarkable. His electrolytes were relatively normal. Renal profile was normal. Lactic acid was 1.3. Troponin was a bit elevated at 0.204, initially on admission was 0.034 hence the patient was started on heparin, and cardiology was consulted. Again the patient had no cardiac symptoms whatsoever during this presentation Patient was reevaluated today on 02/22/2021, patient is doing much better today, breathing a lot easier. Less cough and less wheezing less shortness of breath. Remains on bronchodilators and IV Solu-Medrol. Remains on heparin for possible non-ST elevation myocardial infarction. Patient is to be seen by cardiology again today, and decision will be made regarding his heparin and whether to pursue any further diagnostic workup for coronary artery disease. Pulmonary- kendall the patient is doing much better, and I will go ahead and transition the patient from IV Solu-Medrol to oral prednisone. Plan to consider discharge planning from the pulmonary perspective in the next 24 hours. Reevaluated today on 02/23/2021, patient is doing well, his pulmonary status is improving, however the patient is scheduled to undergo cardiac catheterization today. No cough no wheezing no shortness of breath, no chest pain. Patient is on 2 L nasal cannula and his O2 sats is 99%. Hence option would be discontinued. Reevaluated today on 02/24/2021, patient is doing great, feeling much better, breathing a lot easier. Underwent cardiac catheterization yesterday, and the patient was found to have extremely calcified left coronary system, with some disease in the left circumflex. Medical management was recommended by cardiology. Stenting would be recommended if the patient developed chest pain, patient will need to have follow-up with cardiology as outpatient basis. Pulmonary-kendall patient is doing great, and I'll clear him to go home today. Objective - Vital Signs Vital signs: Vital Signs Temp 98.0 F 02/24/21 07:22 Pulse 88 02/24/21 08:30 Resp 18 02/24/21 08:00 BP 112/73 02/24/21 07:22 Pulse Ox 95 02/24/21 07:22 Intake & Output 02/23/21 02/24/21 02/24/21 18:59 06:59 18:59 Intake Total 340 325 100 Output Total 550 300 Balance -210 25 100 Intake: IV 100 Oral 240 325 100 Output: Urine 550 300 Other: Voiding Method Urinal Urinal Urinal # Voids 1 # Bowel Movements 0 - Exam Physical Exam: Revealed 70-year-old white male in no distress, on room air Head: Atraumatic, normocephalic. HEENT:[Neck is supple.] [No neck masses.] [No thyromegaly.] [No JVD.] Chest: [Symmetrical chest expansion, slightly diminished breath sounds at the bases no rhonchi and no wheezes. Cardiac Exam: [Normal S1 and S2, no S3 gallop, no murmur.] Abdomen: [Soft, nontender, no megaly, no rebound, no guarding, normal bowel sounds.] Extremities: [No clubbing, no edema, no cyanosis.] Good pulses bilaterally Neurological Exam: [No focal neurologic deficit.] Alert and oriented 3. Musculoskeletal: No deformities noted limitation of range of motion Skin: No rashes, no clubbing. Psychiatric: Normal mood affect and normal mental status examination. - Labs CBC & Chem 7: 02/23/21 04:54 02/24/21 06:47 Labs: Abnormal Lab Results - Last 24 Hours (Table) 02/24/21 Range/Units 06:47 Sodium 126 L (137-145) mmol/L Chloride 94 L (98-107) mmol/L Creatinine 0.53 L (0.66-1.25) mg/dL Assessment and Plan Assessment: Impression: Acute exacerbation of COPD Possible non-ST elevation myocardial infarction Remote smoking history/ex-smoker. Status post cardiac catheterization and the recommendation was medical therapy only. Recommendation: Continue present course of treatment including bronchodilators, prednisone , DuoNeb updrafts 4 times a day and when necessary, aspirin, Reviewed the report of the cardiac catheterization. Cleared from my perspective to be discharged home if cleared by other consultants. Patient is to go back on his usual medications and to have prednisone tapered over 2 weeks at least. Patient is to see me again in 2 weeks post discharge Time with Patient: Less than 30
--- NOTE | 2021-02-24 12:23 | P.NPCON ---
History of Present Illness - Reason for Consult hyponatremia - History of Present Illness Reason for consultation: Hyponatremia History of present illness: Patient is a 70-year-old male seen in renal consultation for hyponatremia. Patient's sodium level was 132 on admission and was 134 as of February 21. Last 2 days his been declining and is down to 126 today. He's been receiving normal saline as he underwent a cardiac catheterization yesterday. He was noted to have severe calcification of the vessels. No interventions were done. He denies any chest pain or shortness of breath at this time. No history of malignancy. He does admit to drinking quite a bit of water. Good urine output. No hematur ia or dysuria. GFR at baseline. Once to go home. He is currently off IV fluids. present at bedside. Vital signs are stable. General: The patient appeared well nourished and normally developed. HEENT: Head exam is unremarkable. Neck is without jugular venous distension. LUNGS: Breath sounds decreased. HEART: Rate and Rhythm are regular. ABDOMEN: Soft, nontender. EXTREMITITES: No edema. Past Medical History Past Medical History: COPD History of Any Multi-Drug Resistant Organisms: None Reported Past Surgical History: No Surgical Hx Reported Past Psychological History: Depression Smoking Status: Former smoker Past Alcohol Use History: None Reported Past Drug Use History: None Reported - Past Family History Mother Family Medical History: COPD, CVA/TIA Medications and Allergies Home Medications Medication Instructions Recorded Confirmed Type Albuterol Sulfate [Ventolin HFA] 2 puff INHALATION RT-QID PRN 02/20/21 02/20/21 History Fluticasone/Umeclidin/Vilanter 1 puff INHALATION RT-DAILY 02/20/21 02/20/21 History [Liliya Ellipta 100-62.5-25] Ipratropium-Albuterol Nebulize 3 ml INHALATION RT-QID 02/20/21 02/20/21 History [Duoneb 0.5 mg-3 mg/3 ml Soln] Meloxicam 15 mg PO DAILY 02/20/21 02/20/21 History predniSONE 5 mg PO TID 02/20/21 02/20/21 History guaiFENesin [Mucinex] 600 mg PO DAILY 02/21/21 02/21/21 History Ipratropium-Albuterol Nebulize 0 ml INHALATION QID 30 Days #6 box 04/09/21 Rx [Duoneb 0.5 mg-3 mg/3 ml Soln] Allergies Allergy/AdvReac Type Severity Reaction Status Date / Time Sulfa (Sulfonamide Allergy Unknown Verified 02/20/21 20:49 Antibiotics) Physical Exam Vitals: Vital Signs Temp Pulse Pulse Resp BP Pulse Ox 02/24/21 12:13 80 02/24/21 08:30 88 02/24/21 08:16 84 02/24/21 08:00 77 18 02/24/21 07:22 98.0 F 77 18 112/73 95 02/24/21 02:27 98.8 F 94 18 120/73 94 L 02/24/21 02:00 18 02/23/21 21:06 99 02/23/21 20:56 96 02/23/21 20:00 18 02/23/21 18:59 98.5 F 91 18 151/97 96 02/23/21 15:46 96 02/23/21 15:34 92 02/23/21 14:00 89 18 02/23/21 13:55 88 118/80 98 02/23/21 13:09 89 02/23/21 12:57 88 02/23/21 12:55 89 132/85 99 02/23/21 12:25 89 128/77 99 Intake and Output 02/23/21 02/24/21 02/24/21 22:59 06:59 14:59 Intake Total 325 100 Output Total 150 150 Balance 175 -150 100 Intake: Oral 325 100 Output: Urine 150 150 Other: Voiding Method Urinal Urinal Urinal Results - Lab Results Most recent lab results Calcium 8.5 mg/dL (8.4-10.2) 02/24/21 06:47 02/23/21 04:54 02/24/21 06:47 Assessment and Plan Plan: Assessment: 1. Hyponatremia, euvolemic. Worsened with normal saline. Component of SIADH. Sodium level 126 today. 2. Coronary artery disease status post cardiac catheterization done March 05. Cardiology following. 3. COPD exacerbation. Maintained on oral steroids. Plan: 1200 mL fluid restriction. Add sodium chloride tablet. Check serum and urine osmolality and urine sodium level. Check TSH. Repeat electrolytes in the morning. Thank you for the consultation. I will continue to follow the patient with you during his hospital stay.
[2021-02-24] MEDS: SODIUM CHLORIDE TAB 1 GM TAB PO SCH (13:28)
--- NOTE | 2021-02-24 16:08 | P.PN ---
Subjective Patient is pleasant 78-year-old male came in with comments of shortness of breath progressively worsening going on for few weeks, patient to was found to have COPD. Patient also complaining of cough syrup clear sputum production. Patient denied any fever chills CT of the chest did not show any pulmonary embolism no infiltrates on the CT. Patient was started on IV steroids, pulmonary evaluated the patient patient was discharged back to oral steroids and inhalational treatments. Patient is also found to have elevated troponins although patient denied any chest pain at this time, EKG showed lateral T-wave inversions and biphasic T waves, BNP of around 2210, troponins ranged between 0.0342 0.204 02/22/2021 Patient is seen and evaluated in follow-up currently continues to be short of breath maintained on 2 L via nasal cannula. Patient was seen and evaluated by cardiology and undergoing cardiac catheterization in the morning. Patient states he feels much better on 2 L of oxygen and will do home O2 eval. Patient is maintained on DuoNeb treatments along with oral steroids and will continue. Patient was on IV heparin and discontinuing per cardiology. Will repeat a.m. labs. 02/23/2021 Patient is seen and evaluated this morning currently on 4 L of oxygen stating he is dyspneic although there appears to be a component of anxiety as well as patient is scheduled to undergo cardiac catheterization today. at the bedside slightly elevating the anxiety level. Will perform home O2 eval although oxygen saturations are 98-100% on 2 L. Patient is maintained on oral steroids along with breathing inhalational treatments and will continue. White blood count slightly elevated at 20.3 although patient denies any fevers or wo rsening shortness of breath or cough. Hemoglobin is stable at 14.6. Sodium was found to be slightly low at 129 and will discontinue IV fluids, potassium is 4.6 current creatinine is 0.55. 02/24/2021 patient's serum sodium continued to go down because of which nephrology was consulted and the patient is believed to have a SIADH. Patient respiratory status did improve patient was cleared by cardiology. Constitutional: Denied any fatigue denied any fever. Cardio vascular: denied any chest pain, palpitations Gastrointestinal denied any nausea vomiting Pulmonary: Denied any shortness of breath cough Neurologic denied any new focal deficits All inpatient medications were reviewed and appropriate changes in these medications as dictated in the interval history and assessment and plan. Objective - Vital Signs Vital signs: Vital Signs Temp 98.4 F 02/24/21 14:52 Pulse 110 H 02/24/21 14:52 Resp 18 02/24/21 14:52 BP 92/63 02/24/21 14:52 Pulse Ox 93 L 02/24/21 14:52 Intake & Output 02/23/21 02/24/21 02/24/21 18:59 06:59 18:59 Intake Total 340 325 300 Output Total 550 300 Balance -210 25 300 Intake: IV 100 Oral 240 325 300 Output: Urine 550 300 Other: Voiding Method Urinal Urinal Urinal # Voids 1 3 # Bowel Movements 0 - Exam PHYSICAL EXAMINATION: GENERAL: The patient is alert and oriented x3, not in any acute distress. Well developed, well nourished. HEENT: Pupils are round and equally reacting to light. EOMI. No scleral icterus. No conjunctival pallor. Normocephalic, atraumatic. No pharyngeal erythema. No thyromegaly. CARDIOVASCULAR: S1 and S2 present. No murmurs, rubs, or gallops. PULMONARY: Chest is clear to auscultation, no wheezing or crackles. ABDOMEN: Soft, nontender, nondistended, normoactive bowel sounds. No palpable organomegaly. MUSCULOSKELETAL: No joint swelling or deformity. EXTREMITIES: No cyanosis, clubbing, or pedal edema. NEUROLOGICAL: Gross neurological examination did not reveal any focal deficits. SKIN: No rashes. - Labs CBC & Chem 7: 02/23/21 04:54 02/24/21 06:47 Labs: Abnormal Lab Results - Last 24 Hours (Table) 02/24/21 02/24/21 Range/Units 06:47 06:47 Sodium 126 L (137-145) mmol/L Chloride 94 L (98-107) mmol/L Creatinine 0.53 L (0.66-1.25) mg/dL Osmolality 269 L (280-301) mosm/kg Assessment and Plan Plan: -Acute exacerbation of COPD: Continue with oral steroids and breathing inhalational treatments. Patient is not wheezing today and not requiring oxygen. -Hyponatremia, euvolemic hyponatremia possibly of SIADH fluid restriction repeat BMP tomorrow -Elevated troponin and possibility of non-ST elevation myocardial infarction. Patient underwent cardiac catheterization today with no stenting recommending medical management. -Chronic low back pain -Depression -Anxiety -Full code
[2021-02-24] MEDS: ATORVASTATIN 40 MG TAB PO SCH (22:25)
[2021-02-25 07:10] LABS: African American GFR (CKD) >90 (>60 ml/min/1.73 sqM); Anion Gap 8 mmol/L; Blood Urea Nitrogen 18 mg/dL (9-20); Calcium 8.6 mg/dL (8.4-10.2); Carbon Dioxide 26 mmol/L (22-30); Chloride 94 mmol/L (98-107); Glucose 90 mg/dL (74-99); Non-African American GFR(CKD) >90 (>60 ml/min/1.73 sqM); Potassium 3.7 mmol/L (3.5-5.1); Sodium 128 mmol/L (137-145)
[2021-02-25] MEDS: ASPIRIN 81 MG PO SCH (07:40)
[2021-02-25] MEDS: SODIUM CHLORIDE TAB 1 GM TAB PO SCH (07:40)
[2021-02-25] MEDS: guaiFENesin 600 MG TABLET.ER PO SCH (07:40)
[2021-02-25] MEDS: predniSONE 20 MG TAB PO SCH (07:41)
[2021-02-25] MEDS: SYMBICORT 160-4.5 MCG INHALER INHALATION SCH (08:16)
[2021-02-25] MEDS: IPRATROPIUM-ALBUTEROL 3 ML NEB INHALATION SCH ×3 (08:16→15:03)
[2021-02-25] MEDS ORDERED: TOLVAPTAN 15 MG 1/2 TABLET PO ONE (08:48)
--- NOTE | 2021-02-25 08:50 | P.PN ---
Subjective Progress Note Date: 02/25/21 Principal diagnosis: Coronary artery disease This is a 70-year-old gentleman who was admitted to the hospital initially with increasing shortness of breath. He does have chronic obstructive pulmonary disease. He underwent a heart catheterization for abnormal cardiac enzymes and that revealed severe disease involving the small size left circumflex coronary artery in the AV groove and maximize medical treatment was advised The patient was seen today. His chest pain free. The shortness of breath has improved. He stated that since he was started on statin he developed diarrhea. I'm going to decrease the dose of Lipitor to 20 mg by mouth daily. Otherwise and from a cardiovascular standpoint of view, he can be discharged home Objective - Vital Signs Vital signs: Vital Signs Temp 98.1 F 02/25/21 07:00 Pulse 88 02/25/21 08:27 Resp 20 02/25/21 07:00 BP 106/63 02/25/21 07:00 Pulse Ox 95 02/25/21 07:00 Intake & Output 02/24/21 02/25/21 02/25/21 18:59 06:59 18:59 Intake Total 300 Output Total 300 300 Balance 0 -300 Intake: Oral 300 Output: Urine 300 300 Other: Voiding Method Urinal # Voids 3 1 - Constitutional General appearance: Present: no acute distress - Respiratory Respiratory: bilateral: CTA - Cardiovascular Rhythm: regular Heart sounds: normal: S1, S2 - Labs CBC & Chem 7: 02/23/21 04:54 02/25/21 06:08 Labs: Abnormal Lab Results - Last 24 Hours (Table) 02/24/21 02/25/21 Range/Units 06:47 06:08 Sodium 128 L (137-145) mmol/L Chloride 94 L (98-107) mmol/L Creatinine 0.54 L (0.66-1.25) mg/dL Osmolality 269 L (280-301) mosm/kg Assessment and Plan Assessment: Assessment #1 COPD exacerbation #2 mildly abnormal enzymes #3 coronary artery disease Plan #1 continue the current medical regimen #2 decrease the dose of Lipitor #3 the patient can be discharged home
--- NOTE | 2021-02-25 10:48 | P.PN ---
Subjective Patient is seen in follow-up for hyponatremia. Sodium level better. Oral intake is good. Good urine output. No chest pain or shortness of breath. Vital signs are stable. General: The patient appeared well nourished and normally developed. HEENT: Head exam is unremarkable. Neck is without jugular venous distension. LUNGS: Lungs are clear to auscultation and percussion. Breath sounds decreased. HEART: Rate and Rhythm are regular. ABDOMEN: Soft, nontender. EXTREMITITES: No edema. Objective - Vital Signs Vital signs: Vital Signs Temp 98.1 F 02/25/21 07:00 Pulse 88 02/25/21 08:27 Resp 20 02/25/21 08:00 BP 106/63 02/25/21 07:00 Pulse Ox 95 02/25/21 07:00 Intake & Output 02/24/21 02/25/21 02/25/21 18:59 06:59 18:59 Intake Total 300 Output Total 300 300 Balance 0 -300 Intake: Oral 300 Output: Urine 300 300 Other: Voiding Method Urinal Urinal # Voids 3 1 # Bowel Movements 2 - Labs CBC & Chem 7: 02/23/21 04:54 02/25/21 06:08 Labs: Abnormal Lab Results - Last 24 Hours (Table) 02/24/21 02/25/21 Range/Units 06:47 06:08 Sodium 128 L (137-145) mmol/L Chloride 94 L (98-107) mmol/L Creatinine 0.54 L (0.66-1.25) mg/dL Osmolality 269 L (280-301) mosm/kg Assessment and Plan Plan: Assessment: 1. Hyponatremia, euvolemic. Worsened with normal saline. Component of SIADH. Sodium level 128 today. Urine sodium 162 and urine osmolality 717. TSH normal. 2. Coronary artery disease status post cardiac catheterization done March 05. Cardiology following. 3. COPD exacerbation. Maintained on oral steroids. Plan: 1200 mL fluid restriction. Maintain sodium chloride tablet. Blood pressure on the lower side. Samsca 15 mg once today. Patient is eager to go home. Repeat BMP 2 days postdischarge. Follow up outpatient in 1 week.
--- NOTE | 2021-02-25 14:24 | P.DS ---
Providers Date of admission: 02/22/21 20:09 Attending physician: August Muro Consults: 02/20/21 20:01 Consult Physician Urgent Consulting Provider: Yordan Burris Consult Reason/Comments: abnormal EKG, dyspnea Do you want consulting provider notified?: Yes 02/21/21 08:51 Consult Physician Routine Consulting Provider: Janice Allen Consult Reason/Comments: COPD Do you want consulting provider notified?: Yes 02/24/21 08:33 Consult Physician Urgent Consulting Provider: Vinnie Rojas Consult Reason/Comments: hyponatremia Do you want consulting provider notified?: Yes Primary care physician: [facility] Course: Patient is pleasant 78-year-old male came in with comments of shortness of breath progressively worsening going on for few weeks, patient to was found to have COPD. Patient also complaining of cough syrup clear sputum production. Patient denied any fever chills CT of the chest did not show any pulmonary embolism no infiltrates on the CT. Patient was started on IV steroids, pulmonary evaluated the patient patient was discharged back to oral steroids and inhalational treatments. Patient is also found to have elevated troponins although patient denied any chest pain at this time, EKG showed lateral T-wave inversions and biphasic T waves, BNP of around 2210, troponins ranged between 0.0342 0.204 02/22/2021 Patient is seen and evaluated in follow-up currently continues to be short of breath maintained on 2 L via nasal cannula. Patient was seen and evaluated by cardiology and undergoing cardiac catheterization in the morning. Patient states he feels much better on 2 L of oxygen and will do home O2 eval. Patient is maintained on DuoNeb treatments along with oral steroids and will continue. Patient was on IV heparin and discontinuing per cardiology. Will repeat a.m. labs. 02/23/2021 Patient is seen and evaluated this morning currently on 4 L of oxygen stating he is dyspneic although there appears to be a component of anxiety as well as patient is scheduled to undergo cardiac catheterization today. at the bedside slightly elevating the anxiety level. Will perform home O2 eval although oxygen saturations are 98-100% on 2 L. Patient is maintained on oral steroids along with breathing inhalational treatments and will continue. White blood count slightly elevated at 20.3 although patient denies any fevers or worsening shortness of breath or cough. Hemoglobin is stable at 14.6. Sodium was found to be slightly low at 129 and will discontinue IV fluids, potassium is 4.6 current creatinine is 0.55. 02/24/2021 patient's serum sodium continued to go down because of which nephrology was consulted and the patient is believed to have a SIADH. Patient respiratory status did improve patient was cleared by cardiology. 02/25/2021 Patient's serum sodium did improve to 128 after fluid restriction. Patient appears to have SIADH although cause for SIADH is unknown. Patient will receive Samsca today after that patient will be discharged on salt tablets repeat the basic metabolic profile will be obtained in couple days patient will follow up closely with nephrology and PCP. Patient had cardiac catheterization which s howed severe disease involving the small size left circumflex coronary artery in the AV groove, patient did not receive any stents for this recurrent management was advised. Patient is not in severity exacerbation at this time patient will be discharged on weaning dose of steroids. PHYSICAL EXAMINATION: GENERAL: The patient is alert and oriented x3, not in any acute distress. Well developed, well nourished. HEENT: Pupils are round and equally reacting to light. EOMI. No scleral icterus. No conjunctival pallor. Normocephalic, atraumatic. No pharyngeal erythema. No thyromegaly. CARDIOVASCULAR: S1 and S2 present. No murmurs, rubs, or gallops. PULMONARY: Chest is clear to auscultation, no wheezing or crackles. ABDOMEN: Soft, nontender, nondistended, normoactive bowel sounds. No palpable organomegaly. MUSCULOSKELETAL: No joint swelling or deformity. EXTREMITIES: No cyanosis, clubbing, or pedal edema. NEUROLOGICAL: Gross neurological examination did not reveal any focal deficits. SKIN: No rashes. Assessment and Plan Plan: -Acute exacerbation of COPD: Continue with oral steroids and breathing inhalational treatments. Patient is not wheezing today and not requiring oxygen. -Hyponatremia, euvolemic hyponatremia possibly of SIADH fluid restriction repeat BMP in couple days as an outpatient. Hyponatremia improved - non-ST elevation myocardial infarction. Patient underwent cardiac catheterization , results of cardiac catheterization as mentioned above -Chronic low back pain -Depression -Anxiety -Full code Patient Condition at Discharge: Stable Plan - Discharge Summary Discharge Rx Participant: No New Discharge Prescriptions: New Ipratropium-Albuterol Nebulize [Duoneb 0.5 mg-3 mg/3 ml Soln] 0 ml INHALATION QID 30 Days #6 box Nitroglycerin Sl Tabs [Nitrostat] 0.4 mg SUBLINGUAL Q5M PRN #30 tab PRN Reason: Chest Pain Aspirin 81 mg PO DAILY #30 chew Atorvastatin [Lipitor] 20 mg PO HS #30 tab predniSONE 10 mg PO DAILY #30 tab Sodium Chloride Tab 1 gm PO DAILY #30 tab Continue Ipratropium-Albuterol Nebulize [Duoneb 0.5 mg-3 mg/3 ml Soln] 3 ml INHALATION RT-QID guaiFENesin [Mucinex] 600 mg PO DAILY Albuterol Sulfate [Ventolin HFA] 2 puff INHALATION RT-QID PRN PRN Reason: Shortness Of Breath Fluticasone/Umeclidin/Vilanter [Trelegy Ellipta 100-62.5-25] 1 puff INHALATION RT-DAILY Meloxicam 15 mg PO DAILY Discontinued predniSONE 5 mg PO TID Discharge Medication List Albuterol Sulfate [Ventolin HFA] 2 puff INHALATION RT-QID PRN 02/20/21 [History] Fluticasone/Umeclidin/Vilanter [Trelegy Ellipta 100-62.5-25] 1 puff INHALATION RT-DAILY 02/20/21 [History] Ipratropium-Albuterol Nebulize [Duoneb 0.5 mg-3 mg/3 ml Soln] 3 ml INHALATION RT-QID 02/20/21 [History] Meloxicam 15 mg PO DAILY 02/20/21 [History] guaiFENesin [Mucinex] 600 mg PO DAILY 02/21/21 [History] Ipratropium-Albuterol Nebulize [Duoneb 0.5 mg-3 mg/3 ml Soln] 0 ml INHALATION QID 30 Days #6 box 02/23/21 [Rx] Aspirin 81 mg PO DAILY #30 chew 02/25/21 [Rx] Atorvastatin [Lipitor] 20 mg PO HS #30 tab 02/25/21 [Rx] Nitroglycerin Sl Tabs [Nitrostat] 0.4 mg SUBLINGUAL Q5M PRN #30 tab 02/25/21 [Rx] Sodium Chloride Tab 1 gm PO DAILY #30 tab 04/11/21 [Rx] predniSONE 10 mg PO DAILY #30 tab 02/25/21 [Rx] Follow up Appointment(s)/Referral(s): Janice Allen MD [STAFF PHYSICIAN] - 2 Weeks Epi Rodrigues MD [STAFF PHYSICIAN] - 2 Weeks Kain Edwards III, MD [Primary Care Provider] - 3 Days Discharge Disposition: HOME SELF-CARE
[2021-02-25 14:27] VITALS: BP 106/70; RESP 18; TEMP 98
--- NOTE | 2021-02-25 14:58 | P.PN ---
Subjective Progress Note Date: 02/25/21 Principal diagnosis: Shortness of breath. This is a 70-year-old white male with history of COPD which was diagnosed over 12 years ago. Patient is at least a [id number] smoker, quit smoking about 15 years ago. Patient is maintained on bronchodilators in the form of updrafts/D uoNeb, is also on trelegy 1 puff daily. Never seen a electrical hardware engineer before. His COPD is being managed by his primary care physician. Patient describes chronic shortness of breath with any activity. He is however not O2 dependent and not prednisone dependent. Patient was brought into the ER yesterday with sudden onset of shortness of breath, it happened while he was going to the bathroom. Patient gave himself an updraft treatment and his shortness of breath improved a bit, but he did not go back to his baseline. Hence he was brought into the ER, CT angiogram of the chest was negative for thromboembolic disease. No evidence of infiltrates. Patient was admitted, and this consult was initiated. Patient denies any headache no blurred vision no dizziness denies any chest pain, denies any wheezing. Denies any palpitations, no fever no chills no hemoptysis. Denies any nausea vomiting abdominal pain melena or hematemesis. Denies any dysuria frequency or urgency. His labs were basically unremarkable. His electrolytes were relatively normal. Renal profile was normal. Lactic acid was 1.3. Troponin was a bit elevated at 0.204, initially on admission was 0.034 hence the patient was started on heparin, and cardiology was consulted. Again the patient had no cardiac symptoms whatsoever during this presentation Patient was reevaluated today on 02/22/2021, patient is doing much better today, breathing a lot easier. Less cough and less wheezing less shortness of breath. Remains on bronchodilators and IV Solu-Medrol. Remains on heparin for possible non-ST elevation myocardial infarction. Patient is to be seen by cardiology again today, and decision will be made regarding his heparin and whether to pursue any further diagnostic workup for coronary artery disease. Pulmonary- kendall the patient is doing much better, and I will go ahead and transition the patient from IV Solu-Medrol to oral prednisone. Plan to consider discharge planning from the pulmonary perspective in the next 24 hours. Reevaluated today on 02/23/2021, patient is doing well, his pulmonary status is i mproving, however the patient is scheduled to undergo cardiac catheterization today. No cough no wheezing no shortness of breath, no chest pain. Patient is on 2 L nasal cannula and his O2 sats is 99%. Hence option would be discontinued. Reevaluated today on 02/24/2021, patient is doing great, feeling much better, breathing a lot easier. Underwent cardiac catheterization yesterday, and the patient was found to have extremely calcified left coronary system, with some disease in the left circumflex. Medical management was recommended by cardiology. Stenting would be recommended if the patient developed chest pain, patient will need to have follow-up with cardiology as outpatient basis. P zeferino-kendall patient is doing great, and I'll clear him to go home today. Progress note dated 02/25/2021. Currently, the patient feels much better. He feels like his breathing has significantly improved. His has a lot of questions for me today about what stage COPD he is in. I told her, that depends on his pulmonary function testing. That will be done when he comes into the office to be seen. I explained that the risk for stages of COPD, mild, moderate, severe, and end stage. Anyway, there is some consideration of possible discharge. It hasn't been decided that she. He has been weaned down to room air. He does get short of breath on exertion. He does have a bit of a nonproductive cough. Objective - Vital Signs Vital signs: Vital Signs Temp 98.0 F 02/25/21 14:26 Pulse 117 H 02/25/21 14:26 Resp 18 02/25/21 14:26 BP 106/70 02/25/21 14:26 Pulse Ox 94 L 02/25/21 14:26 Intake & Output 02/24/21 02/25/21 02/25/21 18:59 06:59 18:59 Intake Total 300 300 Output Total 300 300 Balance 0 -300 300 Intake: Oral 300 300 Output: Urine 300 300 Other: Voiding Method Urinal Urinal # Voids 3 1 3 # Bowel Movements 2 - Exam No acute distress, oriented 3. Currently on room air. HEENT examination is grossly unremarkable. Neck supple. Full range of motion. No adenopathy thyromegaly or neck vein distention. Cardiovascular examination reveals regular rhythm rate. S1-S2 normal. No S3 or S4. No discernible murmur noted. Heart rate 84 bpm. Lungs reveal mild bilateral rhonchi. No wheezes or crackles. There is prolongation on forced maneuver. Breath sounds equal bilaterally. Abdomen soft bowel sounds are heard. No masses or tenderness. Extremities are intact. No cyanosis clubbing or edema. Skin is without rash or lesion. Neurologic examination is brief but nonfocal. - Labs CBC & Chem 7: 02/23/21 04:54 02/25/21 06:08 Labs: Abnormal Lab Results - Last 24 Hours (Table) 02/25/21 Range/Units 06:08 Sodium 128 L (137-145) mmol/L Chloride 94 L (98-107) mmol/L Creatinine 0.54 L (0.66-1.25) mg/dL Assessment and Plan Assessment: Acute exacerbation of COPD. Possible non-ST segment elevation myocardial infarction. Remote history of tobacco use and nicotine addiction. Status post cardiac catheterization. Plan: Plan dated 03/07/2021. The patient will need follow-up in the pulmonary office. He'll need a 6 minute walk distance and a complete pulmonary function test. The patient is being discharged home with bronchodilators, and prednisone. He will follow-up in our office. He probably will see Dr. Allen. Additional recommendations and suggestions are forthcoming. Prognosis is guarded. In regards to what stage COPD he isn't, it depends on PFTs. The patient has never seen a electrical hardware engineer in the past. Time with Patient: Less than 30
[2021-02-25 15:17] VITALS: PULSE 86
[2021-02-25] MEDS ORDERED: ATORVASTATIN 20 MG TAB PO SCH (21:00)
== END 2021-02-25 16:15 | disposition home health service (06) | DRG 190 ==
LOC: EC 16:41 → 6NMEDSUR 20:00 → OBSVTOIN 02-22 20:09
PROVIDERS: ADMIT Hospitalist; ATTEND Hospitalist
PROC: B2101ZZ Fluoroscopy of Single Coronary Artery using Low Osmolar Contrast (ICD-10-PCS; 2021-02-23)
PROC: 4A023N7 Measurement of Cardiac Sampling and Pressure, Left Heart, Percutaneous Approach (ICD-10-PCS; principal; 2021-02-23 10:30)
DX: J44.1 Chronic obstructive pulmonary disease with (acute) exacerbation (principal); I21.4 Non-ST elevation (NSTEMI) myocardial infarction; E22.2 Syndrome of inappropriate secretion of antidiuretic hormone; Z87.891 Personal history of nicotine dependence; Z20.822 Contact with and (suspected) exposure to COVID-19; Z82.5 Family history of asthma and other chronic lower respiratory diseases; Z82.3 Family history of stroke; Z79.51 Long term (current) use of inhaled steroids; Z79.52 Long term (current) use of systemic steroids; Z79.1 Long term (current) use of non-steroidal anti-inflammatories (NSAID); G89.29 Other chronic pain; F32.9 Major depressive disorder, single episode, unspecified; R77.8 Other specified abnormalities of plasma proteins; I25.10 Atherosclerotic heart disease of native coronary artery without angina pectoris; R19.7 Diarrhea, unspecified; F41.9 Anxiety disorder, unspecified; Z88.2 Allergy status to sulfonamides
CPT/HCPCS: 36415; 71046; 71275; 80048; 80053; 80061; 83605; 83880; 83930; 83935; 84300; 84443; 84484; 85025; 85379; 85610; 85730; 87635; 93005; 93306; 93458; 94640; 94760; 96374; 99285

== ENCOUNTER 2021-03-02 14:28 | Inpatient (IN) | payer MEDICARE ==
[2021-03-02] MEDS ORDERED: IPRATROPIUM-ALBUTEROL 3 ML NEB INHALATION STA (15:09)
--- NOTE | 2021-03-02 15:19 | ED ---
SOB HPI - General Chief Complaint: Shortness of Breath Stated Complaint: Dyspnea Time Seen by Provider: 03/02/21 14:50 Source: patient, EMS, RN notes reviewed, old records reviewed Mode of arrival: EMS - History of Present Illness Initial Comments: This is a 70-year-old male with a history of COPD who was brought in by EMS from home he was short of breath and exertional dyspnea and his saturations went down into the pain 80s with exertion also heart rate went up to the 160s with exertion. He was recently hospitalized. He believes he is relapsing. No overt fevers chills or sweats at this time no cough no known recent COVID-19 exposure he does state he had the vaccination last vaccination partially 4 weeks ago. MD Complaint: shortness of breath, cough - Related Data Home Medications Medication Instructions Recorded Confirmed Albuterol Sulfate [Ventolin HFA] 2 puff INHALATION RT-QID PRN 02/20/21 03/02/21 Meloxicam 15 mg PO DAILY 02/20/21 03/02/21 guaiFENesin [Mucinex] 300 mg PO QID 02/21/21 03/02/21 Budesonide/Formoterol Fumarate 2 puff INHALATION RT-BID 03/02/21 03/02/21 [Symbicort 160-4.5 Mcg Inhaler] Cetirizine HCl [Zyrtec] 10 mg PO DAILY 03/02/21 03/02/21 Ipratropium-Albuterol Nebulize 3 ml INHALATION RT-QID 03/02/21 03/02/21 [Duoneb 0.5 mg-3 mg/3 ml Soln] Multivitamins, Thera [Multivitamin 1 tab PO DAILY 03/02/21 03/02/21 (formulary)] Sulfamethox-Tmp 800-160Mg [Bactrim 1 tab PO Q12HR 03/02/21 03/02/21 DS 800-160 mg] Vitamin E 400 unit PO DAILY 03/02/21 03/02/21 predniSONE See Taper PO DAILY 03/02/21 03/02/21 Previous Rx's Medication Instructions Recorded Aspirin 81 mg PO DAILY #30 chew 02/25/21 Atorvastatin [Lipitor] 20 mg PO HS #30 tab 02/25/21 Nitroglycerin Sl Tabs [Nitrostat] 0.4 mg SUBLINGUAL Q5M PRN #30 tab 02/25/21 Allergies Allergy/AdvReac Type Severity Reaction Status Date / Time Sulfa (Sulfonamide Allergy Unknown Verified 03/02/21 16:18 Antibiotics) Review of Systems ROS Statement: Those systems with pertinent positive or pertinent negative responses have been documented in the HPI. ROS Other: All systems not noted in ROS Statement are negative. Past Medical History Past Medical History: COPD History of Any Multi-Drug Resistant Organisms: None Reported Past Surgical History: No Surgical Hx Reported Past Psychological History: Depression Smoking Status: Former smoker Past Alcohol Use History: None Reported Past Drug Use History: None Reported - Past Family History Mother Family Medical History: COPD, CVA/TIA General Exam - General Exam Comments Initial Comments: This is a well-developed sec appearing male who is awake alert oriented x3 does have audible wheezing General appearance: alert, in no apparent distress Head exam: Present: atraumatic, normocephalic, normal inspection Eye exam: Present: normal appearance, PERRL, EOMI. Absent: scleral icterus, conjunctival injection, periorbital swelling ENT exam: Present: mucous membranes dry Neck exam: Present: normal inspection. Absent: tenderness, meningismus, lymphadenopathy Respiratory exam: Present: wheezes, decreased breath sounds. Absent: respiratory distress, rales, rhonchi, stridor Cardiovascular Exam: Present: normal rhythm, tachycardia, normal heart sounds. Absent: systolic murmur, diastolic murmur, rubs, gallop, clicks GI/Abdominal exam: Present: soft, normal bowel sounds. Absent: distended, tenderness, guarding, rebound, rigid Extremities exam: Present: normal inspection, full ROM, normal capillary refill. Absent: tenderness, pedal edema, joint swelling, calf tenderness Back exam: Present: normal inspection Neurological exam: Present: alert, oriented X3, CN II-XII intact Psychiatric exam: Present: normal affect, normal mood Skin exam: Present: warm, dry, intact, normal color. Absent: rash Course Vital Signs 03/02/21 03/02/21 03/02/21 14:30 15:28 16:09 Temperature 101 F H Pulse Rate 114 H 112 H 11 L Respiratory 22 22 Rate Blood Pressure 173/106 130/95 O2 Sat by Pulse 98 97 Oximetry 03/02/21 17:58 Temperature Pulse Rate 113 H Respiratory 20 Rate Blood Pressure 114/98 O2 Sat by Pulse 96 Oximetry Medical Decision Making - Medical Decision Making I did discuss findings with patient and Dr. Blakely patient has fever evidence dehydration COPD exacerbation and likely tracheobronchitis. Does demonstrate an elevated white blood cell count patient be admitted for inpatient evaluation and treatment. - Lab Data Result diagrams: 03/02/21 15:19 03/02/21 15:19 Lab Results 03/02/21 03/02/21 03/02/21 Range/Units 15:19 15:19 15:19 WBC 21.0 H (3.8-10.6) k/uL RBC 5.48 (4.30-5.90) m/uL Hgb 17.7 H D (13.0-17.5) gm/dL Hct 51.7 (39.0-53.0) % MCV 94.3 (80.0-100.0) fL MCH 32.3 (25.0-35.0) pg MCHC 34.3 (31.0-37.0) g/dL RDW 13.0 (11.5-15.5) % Plt Count 361 (150-450) k/uL MPV 7.5 Neutrophils % 93 % Lymphocytes % 2 % Monocytes % 4 % Eosinophils % 0 % Basophils % 0 % Neutrophils # 19.6 H (1.3-7.7) k/uL Lymphocytes # 0.5 L (1.0-4.8) k/uL Monocytes # 0.8 (0-1.0) k/uL Eosinophils # 0.1 (0-0.7) k/uL Basophils # 0.1 (0-0.2) k/uL PT 11.1 (9.0-12.0) sec INR 1.1 (<1.2) APTT 18.1 L (22.0-30.0) sec Sodium 132 L (137-145) mmol/L Potassium 5.7 H (3.5-5.1) mmol/L Chloride 96 L (98-107) mmol/L Carbon Dioxide 25 (22-30) mmol/L Anion Gap 11 mmol/L BUN 28 H (9-20) mg/dL Creatinine 0.71 (0.66-1.25) mg/dL Est GFR (CKD-EPI)AfAm >90 (>60 ml/min/1.73 sqM) Est GFR (CKD-EPI)NonAf >90 (>60 ml/min/1.73 sqM) Glucose 114 H (74-99) mg/dL Plasma Lactic Acid Reynold (0.7-2.0) mmol/L Calcium 10.0 (8.4-10.2) mg/dL Magnesium 2.3 (1.6-2.3) mg/dL Total Bilirubin 0.8 (0.2-1.3) mg/dL AST 36 (17-59) U/L ALT 52 H (4-49) U/L Alkaline Phosphatase 65 (38-126) U/L Creatine Kinase 85 (55-170) U/L Troponin I (0.000-0.034) ng/mL NT-Pro-B Natriuret Pep pg/mL Total Protein 6.7 (6.3-8.2) g/dL Albumin 4.2 (3.5-5.0) g/dL 03/02/21 03/02/21 03/02/21 Range/Units 15:19 15:19 15:19 WBC (3.8-10.6) k/uL RBC (4.30-5.90) m/uL Hgb (13.0-17.5) gm/dL Hct (39.0-53.0) % MCV (80.0-100.0) fL MCH (25.0-35.0) pg MCHC (31.0-37.0) g/dL RDW (11.5-15.5) % Plt Count (150-450) k/uL MPV Neutrophils % % Lymphocytes % % Monocytes % % Eosinophils % % Basophils % % Neutrophils # (1.3-7.7) k/uL Lymphocytes # (1.0-4.8) k/uL Monocytes # (0-1.0) k/uL Eosinophils # (0-0.7) k/uL Basophils # (0-0.2) k/uL PT (9.0-12.0) sec INR (<1.2) APTT (22.0-30.0) sec Sodium (137-145) mmol/L Potassium (3.5-5.1) mmol/L Chloride (98-107) mmol/L Carbon Dioxide (22-30) mmol/L Anion Gap mmol/L BUN (9-20) mg/dL Creatinine (0.66-1.25) mg/dL Est GFR (CKD-EPI)AfAm (>60 ml/min/1.73 sqM) Est GFR (CKD-EPI)NonAf (>60 ml/min/1.73 sqM) Glucose (74-99) mg/dL Plasma Lactic Acid Reynold 1.8 (0.7-2.0) mmol/L Calcium (8.4-10.2) mg/dL Magnesium (1.6-2.3) mg/dL Total Bilirubin (0.2-1.3) mg/dL AST (17-59) U/L ALT (4-49) U/L Alkaline Phosphatase (38-126) U/L Creatine Kinase (55-170) U/L Troponin I 0.044 H* (0.000-0.034) ng/mL NT-Pro-B Natriuret Pep 1900 pg/mL Total Protein (6.3-8.2) g/dL Albumin (3.5-5.0) g/dL - EKG Data -: EKG Interpreted by Me EKG Comments: Sinus tachycardia rate 112 SD interval 124 year a 70 QT since QTC 360/431 right atrial enlargement nonspecific ST-T wave configuration - Radiology Data Radiology results: report reviewed (Image reviewed no acute findings.), image reviewed Disposition Clinical Impression: Acute respiratory distress syndrome in adult, COPD exacerbation, Elevated troponin, Acute bronchitis, Febrile illness, acute, Sinus tachycardia Disposition: ADMITTED IP TO THIS HOSP Condition: Fair Referrals: Kain Edwards III, MD [Primary Care Provider] - 1-2 days
[2021-03-02 15:29] LABS: Basophils # (A) 0.1 k/uL (0-0.2); Basophils % (A) 0 %; Eosinophils # (A) 0.1 k/uL (0-0.7); Eosinophils % (A) 0 %; HCT 51.7 % (39.0-53.0); Lymphocytes # (A) 0.5 k/uL (1.0-4.8); Lymphocytes % (A) 2 %; MCH 32.3 pg (25.0-35.0); MCHC 34.3 g/dL (31.0-37.0); MCV 94.3 fL (80.0-100.0); Mean Platelet Volume 7.5; Monocytes # (A) 0.8 k/uL (0-1.0); Monocytes % (A) 4 %; Neutrophils # (A) 19.6 k/uL (1.3-7.7); Neutrophils % (A) 93 %; Platelet Count 361 k/uL (150-450); RBC 5.48 m/uL (4.30-5.90)
[2021-03-02 15:33] LABS: HGB 17.7 gm/dL (13.0-17.5)
[2021-03-02 15:35] LABS: ALT 52 U/L (4-49); AST 36 U/L (17-59); African American GFR (CKD) >90 (>60 ml/min/1.73 sqM); Albumin 4.2 g/dL (3.5-5.0); Alkaline Phosphatase 65 U/L (38-126); Anion Gap 11 mmol/L; Blood Urea Nitrogen 28 mg/dL (9-20); Carbon Dioxide 25 mmol/L (22-30); Chloride 96 mmol/L (98-107); Creatine Kinase 85 U/L (55-170); Glucose 114 mg/dL (74-99); Magnesium 2.3 mg/dL (1.6-2.3); Non-African American GFR(CKD) >90 (>60 ml/min/1.73 sqM); Potassium 5.7 mmol/L (3.5-5.1); Sodium 132 mmol/L (137-145); Total Bilirubin 0.8 mg/dL (0.2-1.3); Total Protein 6.7 g/dL (6.3-8.2)
[2021-03-02 15:39] LABS: INR 1.1 (<1.2); Prothrombin Time 11.1 sec (9.0-12.0)
[2021-03-02 15:51] LABS: Partial Thromboplastin Time 18.1 sec (22.0-30.0)
--- NOTE | 2021-03-02 17:56 | XR ---
EXAMINATION TYPE: XR chest 2V DATE OF EXAM: 03/02/2021 COMPARISON: 02/20/2021 HISTORY: Short of breath TECHNIQUE: 2 views FINDINGS: Heart is normal. Lungs are clear of consolidation. There are no hilar masses. There are jessica st leads. Costophrenic angles are clear. There is anterior wedging of mid thoracic vertebra that is p robably T7. There is 40% loss of height. Unchanged. IMPRESSION: No active cardiopulmonary disease. No change compared to recent exam. There is probably COPD
[2021-03-02] MEDS ORDERED: methylPREDNISolone SOD SUCCI 125 MG/2 ML VIAL IV STA (18:09)
[2021-03-02] MEDS ORDERED: NITROGLYCERIN SL TABS 0.4 MG TAB SUBLINGUAL PRN (18:13)
[2021-03-02] MEDS ORDERED: LEVOFLOXACIN 750MG-D5W PMX 750 MG in DEXTROSE/WATER 1 150ML.BAG IVPB STA (18:14)
[2021-03-02] MEDS ORDERED: IPRATROPIUM-ALBUTEROL 3 ML NEB INHALATION SCH (20:00)
[2021-03-02] MEDS: SYMBICORT 160-4.5 MCG INHALER INHALATION SCH (20:40)
[2021-03-02] MEDS ORDERED: ATORVASTATIN 20 MG TAB PO SCH (21:00)
[2021-03-02] MEDS: guaiFENesin SYRUP 100MG/5ML 200 MG/10 ML CUP PO SCH (22:33)
[2021-03-02] MEDS: SODIUM CHLORIDE 0.9% 1,000 ML IV SCH (22:39)
[2021-03-02] MEDS ORDERED: IPRATROPIUM-ALBUTEROL 3 ML NEB INHALATION PRN (22:44)
[2021-03-03] MEDS: methylPREDNISolone SOD SUCCI 125 MG/2 ML VIAL IV SCH ×5 (00:20→23:18)
[2021-03-03] MEDS: LORATADINE 10 MG TAB PO SCH (08:58)
[2021-03-03] MEDS: ASPIRIN 81 MG PO SCH (08:58)
[2021-03-03] MEDS: MULTIVITAMINS, THERA 1 EACH TAB PO SCH (08:58)
[2021-03-03] MEDS: MELOXICAM 7.5 MG TAB PO SCH (08:58)
[2021-03-03] MEDS: SYMBICORT 160-4.5 MCG INHALER INHALATION SCH ×2 (08:58→21:00)
[2021-03-03] MEDS: VITAMIN E (DL,TOCOPHERYL ACET) 400 UNIT CAP PO SCH (08:59)
[2021-03-03] MEDS: guaiFENesin SYRUP 100MG/5ML 200 MG/10 ML CUP PO SCH ×4 (09:03→20:39)
[2021-03-03] MEDS: IPRATROPIUM-ALBUTEROL 3 ML NEB INHALATION SCH ×4 (10:05→20:58)
--- NOTE | 2021-03-03 10:18 | P.CRDCN ---
History of Present Illness Consult date: 03/03/21 Requesting physician: Dayday Blakely Reason for Consult (text): elevated troponin Chief complaint: shortness of breath History of present illness: This is a pleasant 70-year-old gentleman with a past medical history significant for COPD and former nicotine dependence. He recently admitted to the hospital with dyspnea on exertion and was noted to have elevated troponins and abnormal EKG with lateral T-wave inversions. He was seen and evaluated by Dr. Rodrigues. He underwent cardiac catheterization at that time which showed extremely calcified left coronary system, mostly in the proximal LAD distribution with critical disease involving the mid to distal left circumflex where the left circumflex becomes a small caliber vessel about 2 mm in diameter and was recommended medical approach with aggressive cholesterol control. He was initiated on aspirin and atorvastatin. Was discharged home and had been doing fairly well continuing to recover from COPD exacerbation. Yesterday he de veloped worsening dyspnea on exertion with oxygen saturations in the 80s and noted heart rate in the 160s and presented again to the emergency department. We were asked to the patient in consultation due to elevated troponins which came back at 0.044 and 0.055 which are down compared to previous admission. EKG continues to be abnormal but is unchanged from previous. This x-ray on admission showed no active cardiopulmonary disease, no change compared to recent exam and probable COPD. She was febrile on admission. Vital signs are stable with some tachycardia. Laboratory values showed white blood cell count 21,000 but the patient has been on steroids. Sodium 132, potassium 5.7, chloride 96, BUN 28, creatinine 0.71 NT proBNP of 1900 which is down compared to previous admission. Overall patient denies complaints of chest discomfort he complains of dizziness that he feels is related to his steroids complains of occasional rapid heartbeat and complains of shortness of breath. Past Medical History Past Medical History: COPD History of Any Multi-Drug Resistant Organisms: None Reported Past Surgical History: Heart Catheterization Additional Past Surgical History / Comment(s): [place] Catheterization without stent placement 02/21/2021 Past Anesthesia/Blood Transfusion Reactions: Unable to Obtain Additional Past Anesthesia/Blood Transfusion Reaction / Comment(s): Patient has never recieved blood Past Psychological History: Depression Smoking Status: Former smoker Past Alcohol Use History: None Reported Past Drug Use History: None Reported - Past Family History Mother Family Medical History: CVA/TIA Medications and Allergies Home Medications Medication Instructions Recorded Confirmed Type Albuterol Sulfate [Ventolin HFA] 2 puff INHALATION RT-QID PRN 02/20/21 03/02/21 History Meloxicam 15 mg PO DAILY 02/20/21 03/02/21 History guaiFENesin [Mucinex] 300 mg PO QID 02/21/21 03/02/21 History Aspirin 81 mg PO DAILY #30 chew 02/25/21 03/02/21 Rx Atorvastatin [Lipitor] 20 mg PO HS #30 tab 02/25/21 03/02/21 Rx Nitroglycerin Sl Tabs [Nitrostat] 0.4 mg SUBLINGUAL Q5M PRN #30 tab 02/25/21 03/02/21 Rx Budesonide/Formoterol Fumarate 2 puff INHALATION RT-BID 03/02/21 03/02/21 History [Symbicort 160-4.5 Mcg Inhaler] Cetirizine HCl [Zyrtec] 10 mg PO DAILY 03/02/21 03/02/21 History Ipratropium-Albuterol Nebulize 3 ml INHALATION RT-QID 03/02/21 03/02/21 History [Duoneb 0.5 mg-3 mg/3 ml Soln] Multivitamins, Thera [Multivitamin 1 tab PO DAILY 03/02/21 03/02/21 History (formulary)] Sulfamethox-Tmp 800-160Mg [Bactrim 1 tab PO Q12HR 03/02/21 03/02/21 History DS 800-160 mg] Vitamin E 400 unit PO DAILY 03/02/21 03/02/21 History predniSONE See Taper PO DAILY 03/02/21 03/02/21 History Allergies Allergy/AdvReac Type Severity Reaction Status Date / Time Sulfa (Sulfonamide Allergy Unknown Verified 03/02/21 16:18 Antibiotics) Physical Exam Vitals: Vital Signs Temp Pulse Pulse Resp BP BP Pulse Ox 03/03/21 08:55 98.3 F 101 H 24 147/97 96 03/03/21 04:00 98.0 F 100 18 130/79 98 03/03/21 02:00 102 H 19 03/03/21 00:00 98.1 F 102 H 19 122/77 98 03/02/21 22:00 98.0 F 102 H 19 146/81 98 03/02/21 21:00 98.7 F 110 H 17 126/88 97 03/02/21 20:50 111 H 03/02/21 20:41 115 H 03/02/21 20:00 102 H 19 03/02/21 19:00 98.6 F 112 H 18 128/89 96 03/02/21 17:58 113 H 20 114/98 96 03/02/21 16:09 11 L 22 130/95 97 03/02/21 15:28 112 H 03/02/21 14:30 101 F H 114 H 22 173/106 98 Intake and Output 03/02/21 03/03/21 03/03/21 22:59 06:59 14:59 Intake Total 0 Output Total 375 Balance -375 0 Intake: Oral 0 Output: Urine 375 Other: Weight 70.307 kg 71 kg PHYSICAL EXAMINATION: This is a 70-year-old gentleman who appears somewhat dyspneic and tachypneic at the time of my examination. VITAL SIGNS: Blood pressure 147/97, heart rate 101, respirations 24, temp 98.3F. Patient is and 96 % on 2 L via nasal cannula. HEENT: Head is atraumatic, normocephalic. Pupils are equal, round. Sclerae anicteric. Conjunctivae are clear. Mucous membranes of the mouth are moist. Neck is supple. There is no elevated jugular venous pressure. No carotid bruit is heard. CHEST EXAMINATION: Lungs reveal diminished air exchange bilaterally with faint wheezing throughout. Respirations even and nonlabored. HEART EXAMINATION: Heart regular, positive S1 and S2. No S3. No S4. No clicks, rubs or murmurs. ABDOMEN: Soft, nontender. Bowel sounds are heard. No organomegaly noted. EXTREMITIES: 2+ peripheral pulses with no evidence of peripheral edema and no calf tenderness noted. NEUROLOGIC EXAMINATION: Patient is awake, alert and oriented x3. Results 03/02/21 15:19 03/02/21 15:19 Cardiac Enzymes 03/02/21 03/02/21 03/02/21 Range/Units 15:19 15:19 18:54 AST 36 (17-59) U/L Troponin I 0.044 H* 0.055 H* (0.000-0.034) ng/mL Coagulation 03/02/21 Range/Units 15:19 PT 11.1 (9.0-12.0) sec APTT 18.1 L (22.0-30.0) sec CBC 03/02/21 Range/Units 15:19 WBC 21.0 H (3.8-10.6) k/uL RBC 5.48 (4.30-5.90) m/uL Hgb 17.7 H D (13.0-17.5) gm/dL Hct 51.7 (39.0-53.0) % Plt Count 361 (150-450) k/uL Comprehensive Metabolic Panel 03/02/21 Range/Units 15:19 Sodium 132 L (137-145) mmol/L Potassium 5.7 H (3.5-5.1) mmol/L Chloride 96 L (98-107) mmol/L Carbon Dioxide 25 (22-30) mmol/L BUN 28 H (9-20) mg/dL Creatinine 0.71 (0.66-1.25) mg/dL Glucose 114 H (74-99) mg/dL Calcium 10.0 (8.4-10.2) mg/dL AST 36 (17-59) U/L ALT 52 H (4-49) U/L Alkaline Phosphatase 65 (38-126) U/L Total Protein 6.7 (6.3-8.2) g/dL Albumin 4.2 (3.5-5.0) g/dL Current Medications Generic Name Dose Route Start Last Admin Trade Name Freq PRN Reason Stop Dose Admin Albuterol/Ipratropium 3 ml 03/03/21 08:00 Ipratropium-Albuterol 3 Ml Neb INHALATION RT-QID KAMRAN Albuterol/Ipratropium 3 ml 03/02/21 22:44 Ipratropium-Albuterol 3 Ml Neb INHALATION RT-Q4H PRN Shortness Of Breath Or Wheezing Aspirin 81 mg 03/03/21 09:00 03/03/21 08:58 Aspirin 81 Mg PO 81 mg DAILY KAMRAN Administration Atorvastatin Calcium 40 mg 03/03/21 21:00 Atorvastatin 40 Mg Tab PO HS KAMRAN Budesonide/Formoterol Fumarate 2 puff 03/02/21 20:00 03/03/21 08:58 Symbicort 160-4.5 Mcg Inhaler INHALATION 2 puff RT-BID KAMRAN Administration Guaifenesin 300 mg 03/02/21 22:00 03/03/21 09:03 Guaifenesin Syrup 100mg/5ml 200 Mg/10 Ml Cup PO Not Given QID KAMRAN Sodium Chloride 1,000 mls @ 20 mls/hr 03/02/21 18:15 03/02/21 22:39 Saline 0.9% IV 20 mls/hr .Q24H KAMRAN Administration Levofloxacin 750 mg 03/03/21 18:00 Levofloxacin 750 Mg Tab PO DAILY@1800 KAMRAN Loratadine 10 mg 03/03/21 09:00 03/03/21 08:58 Loratadine 10 Mg Tab PO 10 mg DAILY KAMRAN Administration Meloxicam 15 mg 03/03/21 09:00 03/03/21 08:58 Meloxicam 7.5 Mg Tab PO 15 mg DAILY KAMRAN Administration Methylprednisolone Sodium Succinate 60 mg 03/03/21 00:00 03/03/21 06:11 Methylprednisolone Sod Succi 125 Mg/2 Ml Vial IV 60 mg Q6HR KAMRAN Administration Multivitamins 1 each 03/03/21 09:00 03/03/21 08:58 Multivitamins, Thera 1 Each Tab PO 1 each DAILY KAMRAN Administration Nitroglycerin 0.4 mg 03/02/21 18:13 Nitroglycerin Sl Tabs 0.4 Mg Tab SUBLINGUAL Q5M PRN Chest Pain Vitamin E 400 unit 03/03/21 09:00 03/03/21 08:59 Vitamin E (Dl,Tocopheryl Acet) 400 Unit Cap PO 400 unit DAILY KAMRAN Administration Intake and Output 03/02/21 03/03/21 03/03/21 22:59 06:59 14:59 Intake Total 0 Output Total 375 Balance -375 0 Intake: Oral 0 Output: Urine 375 Other: Weight 70.307 kg 71 kg 03/02/21 15:19 03/02/21 15:19 Assessment and Plan Assessment: #1 COPD exacerbation #2 CAD with known critical lesion involving a small distal circumflex artery #3 tachycardia #4 hyperlipidemia Plan: From network support perspective we will increase atorvastatin. Patient's tachycardia is likely related to underlying lung disease. Will continue to maximize medical therapy as patient has been chest pain-free. We will consult pulmonary. We will continue to follow the patient and provide further recomme ndations accordingly. [employer] note has been reviewed, I agree with a documented findings and plan of care. Patient was seen and examined.
--- NOTE | 2021-03-03 11:15 | P.CNPUL ---
History of Present Illness Consult date: 03/03/21 Reason for consult: COPD History of present illness: 70-year-old male patient hospitalized for worsening shortness of breath. We'll consulted for COPD exacerbation. The patient also had abnormal troponins and some abnormal EKG changes for which cardiology has been consulted. He is known to have COPD and has undergone previous cardiac catheterization by cardiology. His last cardiac cath was on 02/23/2021 and the patient had a lesion involving the mid/distal circumflex artery. In any rate, the patient is coming in with worsening shortness of breath. His chest x-ray is showing is showing hyperinflation and COPD. There may be a vague nodular in the left lower lobe. There is also anterior wedging of the midthoracic vertebra at the level of T7 with a 40% loss of the height. The CT angiogram that was done back in February 2021 showed no evidence of any pulmonary nodules. He has COPD with upper lobe predominance. The patient was hospitalized at that time for a similar COPD exacerbation and acute non-STEMI treated and he was discharged home on a prednisone burst taper. For now, the patient's troponins are 0.04 and 0.052 respectively, proBNP level is 1900, correlation profile was normal, white cell count is 21 with a hemoglobin of 17.7. His COVID-19 testing came back negative. She in regards to COPD, the patient is a ex-smoker. Is currently on Symbicort and utilizes DuoNeb nebulized treatments around the clock. Review of Systems Constitutional: Denies chills, Denies fever Eyes: denies as per HPI, denies blurred vision, denies bulging eye, denies decre ased vision, denies diplopia, denies discharge, denies dry eye, denies irritation, denies itching, denies pain, denies photophobia, denies loss of peripheral vision, denies loss of vision, denies tunnel vision/blind spots Ears: deny: decreased hearing, ear discharge, earache, tinnitus Ears, nose, mouth and throat: Reports as per HPI Breasts: absent: as per HPI, gynecomastia Cardiovascular: Reports decreased exercise tolerance, Reports dyspnea on exertion Respiratory: Reports cough, Reports dyspnea Genitourinary: Reports as per HPI Musculoskeletal: Reports as per HPI Musculoskeletal: absent: ankle pain, ankle stiffness, ankle swelling, as per HPI, elbow pain, elbow stiffness, elbow swelling, foot pain, foot stiffness, foot swelling, hand pain, hand stiffness, hand swelling, hip pain, hip st iffness, hip swelling, knee pain, knee stiffness, knee swelling, shoulder pain, shoulder stiffness, shoulder swelling, wrist pain, wrist stiffness, wrist swelling Neurological: Reports as per HPI Psychiatric: Reports as per HPI Endocrine: Reports as per HPI Hematologic/Lymphatic: Reports as per HPI Allergic/Immunologic: Reports as per HPI Past Medical History Past Medical History: Coronary Artery Disease (CAD), COPD, Hyperlipidemia, Hypertension Additional Past Medical History / Comment(s): Compression fracture of the T7 spine History of Any Multi-Drug Resistant Organisms: None Reported Past Surgical History: Heart Catheterization Additional Past Surgical History / Comment(s): Hearth Catheterization without stent placement 02/21/2021 Past Anesthesia/Blood Transfusion Reactions: Unable to Obtain Additional Past Anesthesia/Blood Transfusion Reaction / Comment(s): Patient has never recieved blood Past Psychological History: Depression Smoking Status: Former smoker (quit smoking 15 years ago and he was in [facility] and he is living in ) Past Alcohol Use History: None Reported Past Drug Use History: None Reported - Past Family History Mother Family Medical History: CVA/TIA Medications and Allergies Home Medications Medication Instructions Recorded Confirmed Type Albuterol Sulfate [Ventolin HFA] 2 puff INHALATION RT-QID PRN 02/20/21 03/02/21 History Meloxicam 15 mg PO DAILY 02/20/21 03/02/21 History guaiFENesin [Mucinex] 300 mg PO QID 02/21/21 03/02/21 History Aspirin 81 mg PO DAILY #30 chew 02/25/21 03/02/21 Rx Atorvastatin [Lipitor] 20 mg PO HS #30 tab 02/25/21 03/02/21 Rx Nitroglycerin Sl Tabs [Nitrostat] 0.4 mg SUBLINGUAL Q5M PRN #30 tab 02/25/21 03/02/21 Rx Budesonide/Formoterol Fumarate 2 puff INHALATION RT-BID 03/02/21 03/02/21 History [Symbicort 160-4.5 Mcg Inhaler] Cetirizine HCl [Zyrtec] 10 mg PO DAILY 03/02/21 03/02/21 History Ipratropium-Albuterol Nebulize 3 ml INHALATION RT-QID 03/02/21 03/02/21 History [Duoneb 0.5 mg-3 mg/3 ml Soln] Multivitamins, Thera [Multivitamin 1 tab PO DAILY 03/02/21 03/02/21 History (formulary)] Sulfamethox-Tmp 800-160Mg [Bactrim 1 tab PO Q12HR 03/02/21 03/02/21 History DS 800-160 mg] Vitamin E 400 unit PO DAILY 03/02/21 03/02/21 History predniSONE See Taper PO DAILY 03/02/21 03/02/21 History Allergies Allergy/AdvReac Type Severity Reaction Status Date / Time Sulfa (Sulfonamide Allergy Unknown Verified 03/02/21 16:18 Antibiotics) Physical Exam Vitals: Vital Signs Temp Pulse Pulse Resp BP BP Pulse Ox 03/03/21 10:16 100 03/03/21 10:05 100 03/03/21 08:55 98.3 F 101 H 24 147/97 96 03/03/21 04:00 98.0 F 100 18 130/79 98 03/03/21 02:00 102 H 19 03/03/21 00:00 98.1 F 102 H 19 122/77 98 03/02/21 22:00 98.0 F 102 H 19 146/81 98 03/02/21 21:00 98.7 F 110 H 17 126/88 97 03/02/21 20:50 111 H 03/02/21 20:41 115 H 03/02/21 20:00 102 H 19 03/02/21 19:00 98.6 F 112 H 18 128/89 96 03/02/21 17:58 113 H 20 114/98 96 03/02/21 16:09 11 L 22 130/95 97 03/02/21 15:28 112 H 03/02/21 14:30 101 F H 114 H 22 173/106 98 Intake and Output 03/02/21 03/03/21 03/03/21 22:59 06:59 14:59 Intake Total 0 Output Total 375 Balance -375 0 Intake: Oral 0 Output: Urine 375 Other: Weight 70.307 kg 71 kg Results - Laboratory Findings CBC and BMP: 03/02/21 15:19 03/02/21 15:19 PT/INR, D-dimer PT 11.1 sec (9.0-12.0) 03/02/21 15:19 INR 1.1 (<1.2) 03/02/21 15:19 Abnormal lab findings: Abnormal Labs 03/02/21 03/02/21 03/02/21 15:19 15:19 15:19 WBC 21.0 H Hgb 17.7 H D Neutrophils # 19.6 H Lymphocytes # 0.5 L APTT 18.1 L Sodium 132 L Potassium 5.7 H Chloride 96 L BUN 28 H Glucose 114 H ALT 52 H Troponin I 03/02/21 03/02/21 15:19 18:54 WBC Hgb Neutrophils # Lymphocytes # APTT Sodium Potassium Chloride BUN Glucose ALT Troponin I 0.044 H* 0.055 H* - Diagnostic Findings Chest x-ray: image reviewed Assessment and Plan Plan: 1 COPD exacerbation, acute and recurrent. The patient was in the hospital dayna roximately 2 weeks ago for the same. He did feel better and upon discharge she is COPD exacerbated again. CT angios have that was done on 02/21/2021 showed emphysema with upper lobe predominance. No evidence of any lung lesions or nodules. COVID-19 testing was negative on 2 separate occasions. 2 chronic dyspnea with an acute exacerbation secondary to above 3 COPD maintained on Symbicort on outpatient basis. Based on PFTs are not available 4 coronary artery disease 5 abnormal troponins, consider non-STEMI as the patient has significantly involving the circumflex, cardiology is on the case 6 thoracic kyphosis with compression fracture T7 spine 8 hyperlipidemia 9 hypertension 10 remote history of smoking Plan Agree on the current treatment Obtain sputum Gram stain and culture Check a pro-calcitonin level Continue Levaquin for now IV Solu-Medrol COnsider trelegy Ellipta on outpatient basis as a replacement for Symbicort Consider maintenance of prednisone even on outpatient basis Will continue DuoNeb nebulized treatments around the clock Outpatient follow with PFT Cardiology to comment on the troponin leak
[2021-03-03 11:58] LABS: Glucose,Whole Blood 139 mg/dL (75-99)
[2021-03-03 12:40] LABS: Basophils % (A) 0 %; Eosinophils % (A) 0 %; HCT 50.4 % (39.0-53.0); HGB 17.3 gm/dL (13.0-17.5); Lymphocytes # (A) 0.4 k/uL (1.0-4.8); Lymphocytes % (A) 2 %; MCH 32.7 pg (25.0-35.0); MCHC 34.4 g/dL (31.0-37.0); Mean Platelet Volume 7.1; Monocytes # (A) 0.4 k/uL (0-1.0); Monocytes % (A) 2 %; Neutrophils # (A) 17.2 k/uL (1.3-7.7); Neutrophils % (A) 96 %; Platelet Count 360 k/uL (150-450); RDW 12.8 % (11.5-15.5)
[2021-03-03] MEDS: INSULIN ASPART (NovoLOG) 100 UNIT/ML VIAL SQ SCH ×3 (12:40→20:39)
[2021-03-03 12:41] LABS: African American GFR (CKD) >90 (>60 ml/min/1.73 sqM); Anion Gap 8 mmol/L; Blood Urea Nitrogen 37 mg/dL (9-20); Calcium 9.7 mg/dL (8.4-10.2); Carbon Dioxide 27 mmol/L (22-30); Chloride 96 mmol/L (98-107); Glucose 144 mg/dL (74-99); Non-African American GFR(CKD) 89 (>60 ml/min/1.73 sqM); Potassium 5.5 mmol/L (3.5-5.1); Sodium 131 mmol/L (137-145)
[2021-03-03 17:01] LABS: Glucose,Whole Blood 146 mg/dL (75-99)
[2021-03-03] MEDS ORDERED: LEVOFLOXACIN 750 MG TAB PO SCH (18:00)
[2021-03-03 20:08] LABS: Glucose,Whole Blood 128 mg/dL (75-99)
[2021-03-03] MEDS: SODIUM CHLORIDE 0.9% 1,000 ML IV SCH (20:36)
[2021-03-03] MEDS: ATORVASTATIN 40 MG TAB PO SCH (20:50)
--- NOTE | 2021-03-03 21:22 | P.HPIM ---
History of Present Illness H&P Date: 03/03/21 Chief Complaint: Shortness of breath Patient is a 70-year-old male with a known history of hypertension, hyperlipidemia, COPD and coronary artery disease status post cardiac c atheterization on 02/23/2021 showed extremely calcified left coronary system and critical disease involving the mid to distal left circumflex where the circumflex- Consider mid to measures were recommended by cardiology presents to ER with the complaints of shortness of breath and exertional dyspnea. Patient states that his saturations were down to 80s and heart rate went up to 160s at home. Denied any chest pain. No fever no chills. No cough or sputum production. No headache or dizziness or lightheadedness. On admission blood pressure 173/106 and heart rate 114 and temperature 101 F. Saturating at 2 L on nasal cannula. Chest x-ray showed lungs are clear of consolidation. No active cardiopulmonary disease. Probably COPD. WBC 21.0 hemoglobin 17.7, sodium 132 potassium 5.7 chloride 96 BUN 28 and creatinine 0.71 troponin 0 0.044, 0.055 and NT proBNP is 1900. Procalcitonin level is 0.03 Review of Systems Constitutional: Patient denies any fever or chills . No generalized weakness or weight loss. Abdomen: Patient denied nausea vomiting and diarrhea and abdominal pain. Cardiovascular: Patient denies any chest pain. Tachycardia.. Respiratory: Patient does complain of cough without production. Shortness of blood present. Neurologic: Patient denied any numbness or tingling headache. Musculoskeletal: Patient denies any complaints of joint swelling or deformity. Skin: Negative Psychiatric: Negative Endocrine: No heat or cold intolerance. No recent weight gain. Genitourinary: No dysuria or hematuria. All other 14 point ROS negative except the above Past Medical History Past Medical History: COPD History of Any Multi-Drug Resistant Organisms: None Reported Past Surgical History: Heart Catheterization Additional Past Surgical History / Comment(s): [facility]earth Catheterization without stent placement 02/21/2021 Past Anesthesia/Blood Transfusion Reactions: Unable to Obtain Additional Past Anesthesia/Blood Transfusion Reaction / Comment(s): Patient has never recieved blood Past Psychological History: Depression Smoking Status: Former smoker Past Alcohol Use History: None Reported Past Drug Use History: None Reported - Past Family History Mother Family Medical History: CVA/TIA Medications and Allergies Home Medications Medication Instructions Recorded Confirmed Type Albuterol Sulfate [Ventolin HFA] 2 puff INHALATION RT-QID PRN 02/20/21 03/02/21 History Meloxicam 15 mg PO DAILY 02/20/21 03/02/21 History guaiFENesin [Mucinex] 300 mg PO QID 02/21/21 03/02/21 History Aspirin 81 mg PO DAILY #30 chew 02/25/21 03/02/21 Rx Atorvastatin [Lipitor] 20 mg PO HS #30 tab 02/25/21 03/02/21 Rx Nitroglycerin Sl Tabs [Nitrostat] 0.4 mg SUBLINGUAL Q5M PRN #30 tab 02/25/21 03/02/21 Rx Budesonide/Formoterol Fumarate 2 puff INHALATION RT-BID 03/02/21 03/02/21 History [Symbicort 160-4.5 Mcg Inhaler] Cetirizine HCl [Zyrtec] 10 mg PO DAILY 03/02/21 03/02/21 History Ipratropium-Albuterol Nebulize 3 ml INHALATION RT-QID 03/02/21 03/02/21 History [Duoneb 0.5 mg-3 mg/3 ml Soln] Multivitamins, Thera [Multivitamin 1 tab PO DAILY 03/02/21 03/02/21 History (formulary)] Sulfamethox-Tmp 800-160Mg [Bactrim 1 tab PO Q12HR 03/02/21 03/02/21 History DS 800-160 mg] Vitamin E 400 unit PO DAILY 03/02/21 03/02/21 History predniSONE See Taper PO DAILY 03/02/21 03/02/21 History Allergies Allergy/AdvReac Type Severity Reaction Status Date / Time Sulfa (Sulfonamide Allergy Unknown Verified 03/02/21 16:18 Antibiotics) Physical Exam Vitals: Vital Signs Temp Pulse Pulse Resp BP BP Pulse Ox 03/03/21 10:16 100 03/03/21 10:05 100 03/03/21 08:55 98.3 F 101 H 24 147/97 96 03/03/21 04:00 98.0 F 100 18 130/79 98 03/03/21 02:00 102 H 19 03/03/21 00:00 98.1 F 102 H 19 122/77 98 03/02/21 22:00 98.0 F 102 H 19 146/81 98 03/02/21 21:00 98.7 F 110 H 17 126/88 97 03/02/21 20:50 111 H 03/02/21 20:41 115 H 03/02/21 20:00 102 H 19 03/02/21 19:00 98.6 F 112 H 18 128/89 96 03/02/21 17:58 113 H 20 114/98 96 03/02/21 16:09 11 L 22 130/95 97 03/02/21 15:28 112 H 03/02/21 14:30 101 F H 114 H 22 173/106 98 Intake and Output 03/02/21 03/03/21 03/03/21 22:59 06:59 14:59 Intake Total 0 Output Total 375 Balance -375 0 Intake: Oral 0 Output: Urine 375 Other: Weight 70.307 kg 71 kg PHYSICAL EXAMINATION: Patient is lying in the bed comfortably, no acute distress, awake alert and oriented.. HEENT: Normocephalic. Neck is supple. Pupils reactive. Nostrils clear. Oral cavity is moist. Ears reveal no drainage. Neck reveals no JVD, carotid bruits, or thyromegaly. CHEST EXAMINATION: Trachea is central. Symmetrical expansion.Bilateral diminished air entry and wheezing present.. CARDIAC: Normal S1, S2 with no gallops. No murmurs ABDOMEN: Soft. Bowel sounds normal. No organomegaly. No abdominal bruits. Extremities: reveal no edema. No clubbing or cyanosis Neurologically awake, alert, oriented x3 with well-coordinated movements. No focal deficits noted Skin: No rash or skin lesions. Psychiatric: Coperative. Nonsuicidal Musculoskeletal: No joint swelling or deformity. Normal range of motion. Results CBC & Chem 7: 03/03/21 11:30 03/03/21 11:30 Labs: Abnormal Lab Results - Last 24 Hours (Table) 03/02/21 03/02/21 03/02/21 Range/Units 15:19 15:19 15:19 WBC 21.0 H (3.8-10.6) k/uL Hgb 17.7 H D (13.0-17.5) gm/dL Neutrophils # 19.6 H (1.3-7.7) k/uL Lymphocytes # 0.5 L (1.0-4.8) k/uL APTT 18.1 L (22.0-30.0) sec Sodium 132 L (137-145) mmol/L Potassium 5.7 H (3.5-5.1) mmol/L Chloride 96 L (98-107) mmol/L BUN 28 H (9-20) mg/dL Glucose 114 H (74-99) mg/dL ALT 52 H (4-49) U/L Troponin I (0.000-0.034) ng/mL 03/02/21 03/02/21 Range/Units 15:19 18:54 WBC (3.8-10.6) k/uL Hgb (13.0-17.5) gm/dL Neutrophils # (1.3-7.7) k/uL Lymphocytes # (1.0-4.8) k/uL APTT (22.0-30.0) sec Sodium (137-145) mmol/L Potassium (3.5-5.1) mmol/L Chloride (98-107) mmol/L BUN (9-20) mg/dL Glucose (74-99) mg/dL ALT (4-49) U/L Troponin I 0.044 H* 0.055 H* (0.000-0.034) ng/mL Thrombosis Risk Factor Assmnt - DVT/VTE Prophylaxis DVT/VTE Prophylaxis: Pharmacologic Prophylaxis ordered - Choose All That Apply Any of the Below Risk Factors Present?: No Other Risk Factors: Yes Each Risk Factor Represents 2 Points: Age 61-74 years, Arthroscopic surgery Other congenital or acquired thrombophilia - If yes, enter type in comment: No Thrombosis Risk Factor Assessment Total Risk Factor Score: 4 Thrombosis Risk Factor Assessment Level: Moderate Risk Assessment and Plan Assessment: Shortness of breath secondary to acute COPD exacerbation Sinus tachycardia secondary to above. Mild elevated troponin level with recent history of cardiac catheterization showed critical disease involving distal circumflex. Medical management was recommended. Hypovolemic hyponatremia Leukocytosis. No evidence of pneumonia on chest x-ray. Hypertension. Uncontrolled hyperlipidemia Previous history of smoking History of compression fracture of T7 spine DVT prophylaxis with heparin subcu Plan: Patient will be continued IV Solu-Medrol 60 mg every 6 hourly and DuoNeb's. Patient was given a dose of Levaquin in the ER. Procalcitonin is not elevated. Leukocytosis trending down and will hold antibiotics at this time. Tachycardia is improving. Pulmonary was consulted and cardiology was consulted due to elevated troponin level. Otherwise patient had a recent cardiac catheterization and maximal medical therapy was recommended. Continue to follow closely for clinical improvement. Time with Patient: Greater than 30
[2021-03-03] MEDS: HEPARIN SODIUM,PORCINE/PF 5,000 UNIT/0.5 ML SYRINGE SQ SCH (23:18)
[2021-03-04 06:08] LABS: Glucose,Whole Blood 147 mg/dL (75-99)
[2021-03-04] MEDS: methylPREDNISolone SOD SUCCI 125 MG/2 ML VIAL IV SCH (06:57)
[2021-03-04] MEDS: INSULIN ASPART (NovoLOG) 100 UNIT/ML VIAL SQ SCH ×4 (06:57→20:28)
[2021-03-04] MEDS: SYMBICORT 160-4.5 MCG INHALER INHALATION SCH ×2 (08:46→19:52)
[2021-03-04] MEDS: IPRATROPIUM-ALBUTEROL 3 ML NEB INHALATION SCH ×4 (08:46→19:52)
[2021-03-04 09:38] LABS: African American GFR (CKD) >90 (>60 ml/min/1.73 sqM); Anion Gap 7 mmol/L; Blood Urea Nitrogen 50 mg/dL (9-20); Calcium 9.6 mg/dL (8.4-10.2); Carbon Dioxide 26 mmol/L (22-30); Chloride 98 mmol/L (98-107); Glucose 137 mg/dL (74-99); Non-African American GFR(CKD) >90 (>60 ml/min/1.73 sqM); Potassium 5.6 mmol/L (3.5-5.1); Sodium 131 mmol/L (137-145)
[2021-03-04] MEDS: MELOXICAM 7.5 MG TAB PO SCH (09:41)
[2021-03-04] MEDS: LORATADINE 10 MG TAB PO SCH (09:41)
[2021-03-04] MEDS: MULTIVITAMINS, THERA 1 EACH TAB PO SCH (09:41)
[2021-03-04] MEDS: guaiFENesin SYRUP 100MG/5ML 200 MG/10 ML CUP PO SCH ×4 (09:42→20:28)
[2021-03-04] MEDS: VITAMIN E (DL,TOCOPHERYL ACET) 400 UNIT CAP PO SCH (09:42)
[2021-03-04] MEDS: ASPIRIN 81 MG PO SCH (09:42)
[2021-03-04] MEDS: PANTOPRAZOLE 40 MG TABLET PO SCH (09:58)
[2021-03-04] MEDS: HEPARIN SODIUM,PORCINE/PF 5,000 UNIT/0.5 ML SYRINGE SQ SCH ×2 (09:58→16:58)
[2021-03-04 10:07] LABS: Basophils # (A) 0.1 k/uL (0-0.2); Basophils % (A) 0 %; Eosinophils % (A) 0 %; HCT 51.9 % (39.0-53.0); HGB 16.7 gm/dL (13.0-17.5); Lymphocytes # (A) 0.4 k/uL (1.0-4.8); Lymphocytes % (A) 1 %; MCH 31.4 pg (25.0-35.0); MCHC 32.3 g/dL (31.0-37.0); MCV 97.5 fL (80.0-100.0); Mean Platelet Volume 8.4; Monocytes # (A) 0.7 k/uL (0-1.0); Monocytes % (A) 2 %; Neutrophils # (A) 29.1 k/uL (1.3-7.7); Neutrophils % (A) 96 %; Platelet Count 279 k/uL (150-450); RBC 5.32 m/uL (4.30-5.90); RDW 13.7 % (11.5-15.5)
[2021-03-04 10:14] LABS: WBC 30.4 k/uL (3.8-10.6)
[2021-03-04] MEDS ORDERED: INSULIN REGULAR 100 UNIT/ML VIAL IV ONE (10:44)
[2021-03-04] MEDS ORDERED: DEXTROSE 50% SYRINGE 50 ML IVP STA (10:44)
--- NOTE | 2021-03-04 10:44 | P.PN ---
Subjective Progress Note Date: 03/04/21 70-year-old male patient hospitalized for worsening shortness of breath. We'll consulted for COPD exacerbation. The patient also had abnormal troponins and some abnormal EKG changes for which cardiology has been consulted. He is known to have COPD and has undergone previous cardiac catheterization by cardiology. His last cardiac cath was on 02/23/2021 and the patient had a lesion involving the mid/distal circumflex artery. In any rate, the patient is coming in with worsening shortness of breath. His chest x-ray is showing is showing hyperinflation and COPD. There may be a vague nodular in the left lower lobe. There is also anterior wedging of the midthoracic vertebra at the level of T7 with a 40% loss of the height. The CT angiogram that was done back in February 2021 showed no evidence of any pulmonary nodules. He has COPD with upper lobe predominance. The patient was hospitalized at that time for a similar COPD exacerbation and acute non-STEMI treated and he was discharged home on a prednisone burst taper. For now, the patient's troponins are 0.04 and 0.052 respectively, proBNP level is 1900, correlation profile was normal, white cell count is 21 with a hemoglobin of 17.7. His COVID-19 testing came back negative. She in regards to COPD, the patient is a ex-smoker. Is currently on Symbicort and utilizes DuoNeb nebulized treatments around the clock. On 03/04/2021, the patient is experiencing side effects to the systemic steroids. He is having some heartburn and restlessness and agitation. He is also limited 06 mg IV push every 6 hours started on him for an acute COPD exacerbation. Otherwise, has no new complaints. No nausea or vomiting. No chest pain for now. Cardiology consulted on this patient regarding his troponin leak. Otherwise, he is on oxygen and currently is on 2 L about 2 by nasal cannula. His blood work from today is awaiting a negative for calcitonin level, potassium level is at 5.6 and the patient has some degree of chronic hyperkalemia. His white cell count is up to 30.4, could be related to Solu- Medrol. Objective - Vital Signs Vital signs: Vital Signs Temp 98.2 F 03/04/21 09:40 Pulse 106 H 03/04/21 09:40 Resp 20 04/18/21 09:40 BP 134/91 03/04/21 09:40 Pulse Ox 96 03/04/21 09:40 Intake & Output 03/03/21 03/04/21 03/04/21 18:59 06:59 18:59 Intake Total 480 Output Total 325 100 Balance 155 -100 Weight 71 kg 70.8 kg Intake: Oral 480 Output: Urine 325 100 Other: # Bowel Movements 1 - Exam The patient appeared well nourished and normally developed. Vital signs as documented. Head exam is unremarkable. No scleral icterus or corneal arcus noted. Neck is without jugular venous distension, thyromegaly, or carotid bruits. Carotid upstrokes are brisk bilaterally. Lungs . C are diminished bilaterally and the patient is prolongation of expiration phase of breathing and diffuse extremity wheezes. The patient also has some thoracic kyphosis. He does have a Jones chest.ardiac exam reveals the PMI to be normally sized and situ ated. Rhythm is regular. First and second heart sounds normal. No murmurs, rubs or gallops. Abdominal exam reveals normal bowel sounds, no masses, no organomegaly and no aortic enlargement. Extremities are nonedematous and both femoral and pedal pulses are normal.Examination of the skin revealed no evidence of significant rashes, suspicious appearing nevi or other concerning lesions.Neurologically, the patient is awake and alert and the patient does not have any focal neurological deficit. Cranial nerves are essentially intact. - Labs CBC & Chem 7: 03/04/21 08:56 03/04/21 08:56 Labs: Abnormal Lab Results - Last 24 Hours (Table) 03/03/21 03/03/21 03/03/21 Range/Units 11:30 11:30 11:56 WBC 18.0 H (3.8-10.6) k/uL Neutrophils # 17.2 H (1.3-7.7) k/uL Lymphocytes # 0.4 L (1.0-4.8) k/uL Sodium 131 L (137-145) mmol/L Potassium 5.5 H (3.5-5.1) mmol/L Chloride 96 L (98-107) mmol/L BUN 37 H (9-20) mg/dL Glucose 144 H (74-99) mg/dL POC Glucose (mg/dL) 139 H (75-99) mg/dL 03/03/21 03/03/21 03/04/21 Range/Units 17:00 20:06 06:02 WBC (3.8-10.6) k/uL Neutrophils # (1.3-7.7) k/uL Lymphocytes # (1.0-4.8) k/uL Sodium (137-145) mmol/L Potassium (3.5-5.1) mmol/L Chloride (98-107) mmol/L BUN (9-20) mg/dL Glucose (74-99) mg/dL POC Glucose (mg/dL) 146 H 128 H 147 H (75-99) mg/dL 03/04/21 03/04/21 Range/Units 08:56 08:56 WBC 30.4 H (3.8-10.6) k/uL Neutrophils # 29.1 H (1.3-7.7) k/uL Lymphocytes # 0.4 L (1.0-4.8) k/uL Sodium 131 L (137-145) mmol/L Potassium 5.6 H (3.5-5.1) mmol/L Chloride (98-107) mmol/L BUN 50 H (9-20) mg/dL Glucose 137 H (74-99) mg/dL POC Glucose (mg/dL) (75-99) mg/dL Assessment and Plan Plan: 1 COPD exacerbation, acute and recurrent. The patient was in the hospital approximately 2 weeks ago for the same. He did feel better and upon discharge she is COPD exacerbated again. CT angios have that was done on 02/21/2021 showed emphysema with upper lobe predominance. No evidence of any lung lesions or nodules. COVID-19 testing was negative on 2 separate occasions. 2 chronic dyspnea with an acute exacerbation secondary to above 3 COPD maintained on Symbicort on outpatient basis. Based on PFTs are not available 4 coronary artery disease 5 abnormal troponins, consider non-STEMI as the patient has significantly involving the circumflex, cardiology is on the case 6 thoracic kyphosis with compression fracture T7 spine 8 hyperlipidemia 9 hypertension 10 remote history of smoking Plan Agree on the current treatment Obtain sputum Gram stain and culture Check a pro-calcitonin level was low Continue Levaquin for now Stopped IV Solu Medrol start the patient a prednisone burst taper COnsider trelegy Ellipta on outpatient basis as a replacement for Symbicort Consider maintenance of prednisone even on outpatient basis Will continue DuoNeb nebulized treatments around the clock Monitor his potassium levels and the patient will be given 2 A of bicarbonate along with D 50 Outpatient follow with PFT Cardiology to comment on the troponin leak
[2021-03-04 11:52] LABS: Glucose,Whole Blood 143 mg/dL (75-99)
[2021-03-04] MEDS: CLOPIDOGREL 75 MG TAB PO SCH (12:09)
[2021-03-04] MEDS: METOPROLOL TARTRATE 25 MG TAB PO SCH ×2 (12:12→20:32)
--- NOTE | 2021-03-04 12:23 | P.PN ---
Subjective This is a pleasant 70-year-old male past medical history significant for coronary artery disease with recent NSTEMI 02/20/2021, COPD and former nicotine dependence. Recent cardiac catheterization revealed extremely calcified left coronary system mostly in the proximal LAD distribution with critical disease involving the mid to distal circumflex. Maximum medical therapy was recommended at that time due to the small diameter of the circumflex artery. He is currently being treated for exacerbation of COPD. He has no symptoms of chest discomfort. Blood pressure 134/90 106 afebrile maintaining oxygen saturation on nasal cannula. Laboratory data reviewed, WBC 30.4, hemoglobin 16.7, platelets 279, sodium 131, potassium 5.6 and creatinine 0.72. Currently maintained on aspirin 81 mg daily and atorvastatin 40 mg daily. GENERAL: Well-appearing, well-nourished and in no acute distress. NECK: Supple without JVD or thyromegaly. LUNGS: Breath sounds clear to auscultation bilaterally. Respiration equal and unlabored. No wheezes, rales or rhonchi. HEART: Regular rate and rhythm without murmurs, rubs or gallops. S1 and S2 heard. EXTREMITIES: Normal range of motion, no edema. No clubbing or cyanosis. Peripheral pulses intact. ASSESSMENT COPD exacerbation Leukocytosis Hyperkalemia Coronary artery disease with known critical lesion involving a small distal circumflex Sinus tachycardia Dyslipidemia Downtrending troponins from recent NSTEMI 02/20/2021 PLAN Continue current medical regimen for exacerbation of COPD. Troponins are coming down from recent NSTEMI. Add plavix and low dose beta blockers to his daily regimen. Follow up with Dr. Rodrigues upon discharge. We will follow along as needed, please call with further questions or concerns. Nurse Practitioner note has been reviewed, I agree with a documented findings and plan of care. Patient was seen and examined. Objective - Vital Signs Vital signs: Vital Signs Temp 98.2 F 03/04/21 09:40 Pulse 106 H 03/04/21 09:40 Resp 20 03/04/21 09:40 BP 134/91 03/04/21 09:40 Pulse Ox 96 03/04/21 09:40 Intake & Output 03/03/21 03/04/21 03/04/21 18:59 06:59 18:59 Intake Total 480 Output Total 325 100 Balance 155 -100 Weight 71 kg 70.8 kg Intake: Oral 480 Output: Urine 325 100 Other: # Bowel Movements 1 - Labs CBC & Chem 7: 03/04/21 08:56 03/04/21 08:56 Labs: Abnormal Lab Results - Last 24 Hours (Table) 03/03/21 03/03/21 03/03/21 Range/Units 11:30 11:30 11:56 WBC 18.0 H (3.8-10.6) k/uL Neutrophils # 17.2 H (1.3-7.7) k/uL Lymphocytes # 0.4 L (1.0-4.8) k/uL Sodium 131 L (137-145) mmol/L Potassium 5.5 H (3.5-5.1) mmol/L Chloride 96 L (98-107) mmol/L BUN 37 H (9-20) mg/dL Glucose 144 H (74-99) mg/dL POC Glucose (mg/dL) 139 H (75-99) mg/dL 03/03/21 03/03/21 03/04/21 Range/Units 17:00 20:06 06:02 WBC (3.8-10.6) k/uL Neutrophils # (1.3-7.7) k/uL Lymphocytes # (1.0-4.8) k/uL Sodium (137-145) mmol/L Potassium (3.5-5.1) mmol/L Chloride (98-107) mmol/L BUN (9-20) mg/dL Glucose (74-99) mg/dL POC Glucose (mg/dL) 146 H 128 H 147 H (75-99) mg/dL 03/04/21 03/04/21 Range/Units 08:56 08:56 WBC 30.4 H (3.8-10.6) k/uL Neutrophils # 29.1 H (1.3-7.7) k/uL Lymphocytes # 0.4 L (1.0-4.8) k/uL Sodium 131 L (137-145) mmol/L Potassium 5.6 H (3.5-5.1) mmol/L Chloride (98-107) mmol/L BUN 50 H (9-20) mg/dL Glucose 137 H (74-99) mg/dL POC Glucose (mg/dL) (75-99) mg/dL
[2021-03-04 16:34] LABS: African American GFR (CKD) >90 (>60 ml/min/1.73 sqM); Anion Gap 6 mmol/L; Blood Urea Nitrogen 55 mg/dL (9-20); Calcium 9.5 mg/dL (8.4-10.2); Carbon Dioxide 26 mmol/L (22-30); Chloride 98 mmol/L (98-107); Glucose 115 mg/dL (74-99); Non-African American GFR(CKD) >90 (>60 ml/min/1.73 sqM); Potassium 5.9 mmol/L (3.5-5.1); Sodium 130 mmol/L (137-145)
[2021-03-04 17:10] LABS: Glucose,Whole Blood 96 mg/dL (75-99)
[2021-03-04] MEDS: LEVOFLOXACIN 500 MG TAB PO SCH (17:46)
[2021-03-04 20:16] LABS: Glucose,Whole Blood 132 mg/dL (75-99)
[2021-03-04] MEDS: ATORVASTATIN 40 MG TAB PO SCH (20:32)
[2021-03-04] MEDS: SODIUM CHLORIDE 0.9% 1,000 ML IV SCH (20:32)
[2021-03-05] MEDS: HEPARIN SODIUM,PORCINE/PF 5,000 UNIT/0.5 ML SYRINGE SQ SCH ×4 (02:50→23:39)
[2021-03-05 06:20] LABS: Glucose,Whole Blood 103 mg/dL (75-99)
[2021-03-05] MEDS: INSULIN ASPART (NovoLOG) 100 UNIT/ML VIAL SQ SCH ×5 (06:22→21:32)
[2021-03-05] MEDS: PANTOPRAZOLE 40 MG TABLET PO SCH (06:43)
[2021-03-05] MEDS: SYMBICORT 160-4.5 MCG INHALER INHALATION SCH ×2 (07:09→20:42)
[2021-03-05] MEDS: IPRATROPIUM-ALBUTEROL 3 ML NEB INHALATION SCH ×4 (07:09→20:42)
[2021-03-05] MEDS: predniSONE 20 MG TAB PO SCH (08:53)
[2021-03-05] MEDS: LORATADINE 10 MG TAB PO SCH (08:53)
[2021-03-05] MEDS: VITAMIN E (DL,TOCOPHERYL ACET) 400 UNIT CAP PO SCH (08:53)
[2021-03-05] MEDS: CLOPIDOGREL 75 MG TAB PO SCH (08:53)
[2021-03-05] MEDS: guaiFENesin SYRUP 100MG/5ML 200 MG/10 ML CUP PO SCH ×5 (08:54→21:36)
[2021-03-05] MEDS: MULTIVITAMINS, THERA 1 EACH TAB PO SCH (08:54)
[2021-03-05] MEDS: METOPROLOL TARTRATE 25 MG TAB PO SCH ×2 (08:54→20:05)
[2021-03-05] MEDS: ASPIRIN 81 MG PO SCH (08:54)
[2021-03-05 09:06] LABS: Basophils # (A) 0.1 k/uL (0-0.2); Basophils % (A) 0 %; Eosinophils % (A) 0 %; HCT 49.8 % (39.0-53.0); HGB 16.9 gm/dL (13.0-17.5); Lymphocytes # (A) 0.8 k/uL (1.0-4.8); Lymphocytes % (A) 3 %; MCH 32.6 pg (25.0-35.0); MCV 95.8 fL (80.0-100.0); Monocytes % (A) 4 %; Neutrophils # (A) 24.3 k/uL (1.3-7.7); Neutrophils % (A) 93 %; Platelet Count 348 k/uL (150-450); RDW 12.8 % (11.5-15.5); WBC 26.2 k/uL (3.8-10.6)
[2021-03-05 09:24] LABS: African American GFR (CKD) >90 (>60 ml/min/1.73 sqM); Anion Gap 6 mmol/L; Blood Urea Nitrogen 53 mg/dL (9-20); Calcium 9.5 mg/dL (8.4-10.2); Carbon Dioxide 29 mmol/L (22-30); Chloride 96 mmol/L (98-107); Glucose 79 mg/dL (74-99); Non-African American GFR(CKD) >90 (>60 ml/min/1.73 sqM); Sodium 131 mmol/L (137-145)
[2021-03-05 09:36] LABS: Potassium 5.3 mmol/L (3.5-5.1)
[2021-03-05] MEDS ORDERED: INSULIN REGULAR 100 UNIT/ML VIAL IV ONE (11:34)
[2021-03-05] MEDS ORDERED: DEXTROSE 50% SYRINGE 50 ML IVP STA (11:34)
[2021-03-05 11:51] LABS: Glucose,Whole Blood 95 mg/dL (75-99)
--- NOTE | 2021-03-05 14:52 | P.PN ---
Subjective Progress Note Date: 03/05/21 Principal diagnosis: Acute and recurrent exacerbation of COPD 70-year-old male patient hospitalized for worsening shortness of breath. We'll consulted for COPD exacerbation. The patient also had abnormal troponins and some abnormal EKG changes for which cardiology has been consulted. He is known to have COPD and has undergone previous cardiac catheterization by cardiology. His last cardiac cath was on 02/23/2021 and the patient had a lesion involving the mid/distal circumflex artery. In any rate, the patient is coming in with worsening shortness of breath. His chest x-ray is showing is showing hyperinflation and COPD. There may be a vague nodular in the left lower lobe. There is also anterior wedging of the midthoracic vertebra at the level of T7 with a 40% loss of the height. The CT angiogram that was done back in February 2021 showed no evidence of any pulmonary nodules. He has COPD with upper lobe predominance. The patient was hospitalized at that time for a similar COPD exacerbation and acute non-STEMI treated and he was discharged home on a prednisone burst taper. For now, the patient's troponins are 0.04 and 0.052 respectively, proBNP level is 1900, correlation profile was normal, white cell count is 21 with a hemoglobin of 17.7. His COVID-19 testing came back negative. She in regards to COPD, the patient is a ex-smoker. Is currently on Symbicort and utilizes DuoNeb nebulized treatments around the clock. On 03/04/2021, the patient is experiencing side effects to the systemic steroids. He is having some heartburn and restlessness and agitation. He is also limited 06 mg IV push every 6 hours started on him for an acute COPD exacerbation. Otherwise, has no new complaints. No nausea or vomiting. No chest pain for now. Cardiology consulted on this patient regarding his troponin leak. Otherwise, he is on oxygen and currently is on 2 L about 2 by nasal cannula. His blood work from today is awaiting a negative for calcitonin level, potassium level is at 5.6 and the patient has some degree of chronic hyperkalemia. His white cell count is up to 30.4, could be related to Solu- Medrol. Patient was evaluated today on 03/05/2021, patient is feeling better, breathing a lot, and on physical examination he sounded fairly clear except for diminished breath sounds at the bases. Cardiology has cleared the patient to be discharged home, and would like to have follow-up on outpatient basis with the resin remover. His is sitting at bedside, and demanding that the patient goes home on oxygen, and I explained to her that he has to qualify for oxygen based on the criteria that we follow and recommended by Medicare. Patient is on 3 L nasal cannula O2 sats is 95%. Blood pressure is 125/85. He is afebrile. Denies any chest pain at present. Patient does have a bit of leukocytosis, and I believe that's mostly likely related to steroids. Chest x-ray did not show any infiltrate. And his pro-calcitonin was 0.03. From our perspective, patient could be considered to be discharged home on bronchodilators as well as pr ednisone burst and taper, however has to be cleared by cardiology Objective - Vital Signs Vital signs: Vital Signs Temp 97.5 F L 03/05/21 12:00 Pulse 75 03/05/21 12:00 Resp 16 03/05/21 12:00 BP 125/85 03/05/21 12:00 Pulse Ox 95 03/05/21 12:00 Intake & Output 03/04/21 03/05/21 03/05/21 18:59 06:59 18:59 Intake Total 236 480 240 Output Total 450 475 300 Balance -214 5 -60 Weight 62.8 kg Intake: Oral 236 480 240 Output: Urine 450 475 300 - Exam Physical Exam: Revealed a 70-year-old white male in no distress. is at bedside, the had more complaints than he did. And again she is demanding that he goes home on oxygen. Head: Atraumatic normocephalic. HEENT:[Neck is supple.] [No neck masses.] [No thyromegaly.] [No JVD.] Chest: [Symmetrical chest expansion, diminished breath sounds at the bases no rhonchi and no wheezes Cardiac Exam: [Normal S1 and S2, no S3 gallop, no murmur.] Abdomen: [Soft, nontender, no megaly, no rebound, no guarding, normal bowel sounds.] Extremities: [No clubbing, no edema, no cyanosis.] Neurological Exam: [No focal neurologic deficit.] Alert and oriented 3. Psychiatric: Normal mood, affect and normal mental status examination. Skin: No rashes - Labs CBC & Chem 7: 03/05/21 07:53 03/05/21 07:53 Labs: Abnormal Lab Results - Last 24 Hours (Table) 03/04/21 03/04/21 03/05/21 Range/Units 15:33 20:14 06:18 WBC (3.8-10.6) k/uL Neutrophils # (1.3-7.7) k/uL Lymphocytes # (1.0-4.8) k/uL Sodium 130 L (137-145) mmol/L Potassium 5.9 H (3.5-5.1) mmol/L Chloride (98-107) mmol/L BUN 55 H (9-20) mg/dL Glucose 115 H (74-99) mg/dL POC Glucose (mg/dL) 132 H 103 H (75-99) mg/dL 03/05/21 03/05/21 Range/Units 07:53 07:53 WBC 26.2 H (3.8-10.6) k/uL Neutrophils # 24.3 H (1.3-7.7) k/uL Lymphocytes # 0.8 L (1.0-4.8) k/uL Sodium 131 L (137-145) mmol/L Potassium 5.3 H (3.5-5.1) mmol/L Chloride 96 L (98-107) mmol/L BUN 53 H (9-20) mg/dL Glucose (74-99) mg/dL POC Glucose (mg/dL) (75-99) mg/dL Assessment and Plan Assessment: Impression: Acute and recurrent exacerbation of COPD Suspect underlying severe COPD Coronary artery disease, reviewed his last cardiac catheterization board. And medical therapy was recommended. Acute non-ST elevation myocardial infarction Compression fracture of T7 Benign essential hypertension Remote smoking history. Recommendation: Continue present treatment plan. Continue present course of bronchodilators. Consider changing Symbicort that he took on outpatient basis to trelegy 100/62.5/25 one puff daily Respiratory to evaluate patient if he qualifies for home O2 and then it could be prescribed. Continue bronchodilators and updrafts. Cardiology to clear the patient for discharge. Will cleared from pulmonary perspective for discharge on prednisone burst and taper, over the next 3 weeks., Anton eddy updrafts 4 times a day and when necessary, Levaquin 500 milligrams daily for 5 more day, O2 at 2 L if the patien t qualifies as. Respiratory We will sign off and see patient on when necessary basis Time with Patient: Less than 30
[2021-03-05] MEDS: SODIUM CHLORIDE 0.9% 1,000 ML IV SCH (17:04)
[2021-03-05 17:07] LABS: Glucose,Whole Blood 96 mg/dL (75-99)
[2021-03-05] MEDS: LEVOFLOXACIN 500 MG TAB PO SCH (17:09)
[2021-03-05] MEDS: ATORVASTATIN 40 MG TAB PO SCH (20:05)
[2021-03-05 20:12] LABS: Glucose,Whole Blood 107 mg/dL (75-99)
--- NOTE | 2021-03-06 00:21 | P.PN ---
Subjective Progress Note Date: 03/04/21 Patient is a 70-year-old male with a known history of hypertension, hyperlipidemia, COPD and coronary artery disease status post cardiac catheterization on 02/23/2021 showed extremely calcified left coronary system and critical disease involving the mid to distal left circumflex where the circumflex- Consider mid to measures were recommended by cardiology presents to ER with the complaints of shortness of breath and exertional dyspnea. Patient states that his saturations were down to 80s and heart rate went up to 160s at home. Denied any chest pain. No fever no chills. No cough or sputum production. No headache or dizziness or lightheadedness. On admission blood pressure 173/106 and heart rate 114 and temperature 101 F. Saturating at 2 L on nasal cannula. Chest x-ray showed lungs are clear of consolidation. No active cardiopulmonary disease. Probably COPD. WBC 21.0 hemoglobin 17.7, sodium 132 potassium 5.7 chloride 96 BUN 28 and creatinine 0.71 troponin 0 0.044, 0.055 and NT proBNP is 1900. Procalcitonin level is 0.03 03/04/2021 Patient is currently resting in the bed. Awake alert and oriented. Breathing status is better. Currently being continued on IV Solu-Medrol 60 mg every 6 hourly due to acute COPD exacerbation. Patient is also on antibiotics of Levaquin. Currently on oxygen 2 L via nasal cannula. Cardiology was consulted due to elevated troponin level. Patient had a repeat cardiac catheterization as reported above. Laboratory showed WBC 30.4 hemoglobin 16.7, platelets 279 and sodium 131 potassium 5.6 chloride 98 BUN 15 creatinine 0.72 blood sugar is 137. Patient was given a dose of insulin regular 10 units IV and 1 amp of D50. Follow-up potassium level. Pulmonary and cardiology is on board. Current medications reviewed. Objective - Vital Signs Vital signs: Vital Signs Temp 97.9 F 03/04/21 12:00 Pulse 108 H 03/04/21 12:10 Resp 18 03/04/21 12:00 BP 121/84 03/04/21 12:00 Pulse Ox 97 03/04/21 12:00 Intake & Output 03/03/21 03/04/21 03/04/21 18:59 06:59 18:59 Intake Total 480 236 Output Total 325 100 225 Balance 155 -100 11 Weight 71 kg 70.8 kg Intake: Oral 480 236 Output: Urine 325 100 225 Other: # Bowel Movements 1 - Exam PHYSICAL EXAMINATION: Patient is lying in the bed comfortably, no acute distress, awake alert and oriented.. HEENT: Normocephalic. Neck is supple. Pupils reactive. Nostrils clear. Oral cavity is moist. Ears reveal no drainage. Neck reveals no JVD, carotid bruits, or thyromegaly. CHEST EXAMINATION: Trachea is central. Symmetrical expansion.Bilateral diminished air entry and wheezing present.. CARDIAC: Normal S1, S2 with no gallops. No murmurs ABDOMEN: Soft. Bowel sounds normal. No organomegaly. No abdominal bruits. Extremities: reveal no edema. No clubbing or cyanosis Neurologically awake, alert, oriented x3 with well-coordinated movements. No focal deficits noted Skin: No rash or skin lesions. Psychiatric: Coperative. Nonsuicidal Musculoskeletal: No joint swelling or deformity. Normal range of motion. - Labs CBC & Chem 7: 03/05/21 07:53 03/05/21 07:53 Labs: Abnormal Lab Results - Last 24 Hours (Table) 03/03/21 03/03/21 03/04/21 Range/Units 17:00 20:06 06:02 WBC (3.8-10.6) k/uL Neutrophils # (1.3-7.7) k/uL Lymphocytes # (1.0-4.8) k/uL Sodium (137-145) mmol/L Potassium (3.5-5.1) mmol/L BUN (9-20) mg/dL Glucose (74-99) mg/dL POC Glucose (mg/dL) 146 H 128 H 147 H (75-99) mg/dL 03/04/21 03/04/21 03/04/21 Range/Units 08:56 08:56 11:50 WBC 30.4 H (3.8-10.6) k/uL Neutrophils # 29.1 H (1.3-7.7) k/uL Lymphocytes # 0.4 L (1.0-4.8) k/uL Sodium 131 L (137-145) mmol/L Potassium 5.6 H (3.5-5.1) mmol/L BUN 50 H (9-20) mg/dL Glucose 137 H (74-99) mg/dL POC Glucose (mg/dL) 143 H (75-99) mg/dL Assessment and Plan Assessment: Shortness of breath secondary to acute COPD exacerbation Sinus tachycardia secondary to above. Mild elevated troponin level with recent history of cardiac catheterization showed critical disease involving distal circumflex. Medical management was recommended. Hypovolemic hyponatremia Hyperkalemia Leukocytosis. No evidence of pneumonia on chest x-ray. Hypertension. Uncontrolled hyperlipidemia Previous history of smoking History of compression fracture of T7 spine DVT prophylaxis with heparin subcu Plan: Patient will be continued IV Solu-Medrol 60 mg every 6 hourly and DuoNeb's. Methylprednisone will be changed to prednisone.Oxygen supplementation. Patient was given a dose of Levaquin in the ER. Procalcitonin is not elevated. Leukocytosis trending down and will hold antibiotics at this time. Tachycardia is improving. cardiology was consulted due to elevated troponin level.Medical management will be continued. Otherwise patient had a recent cardiac catheterization and maximal medical therapy was recommended. Continue to follow closely for clinical improvement. Time with Patient: Greater than 30
--- NOTE | 2021-03-06 00:24 | P.PN ---
Subjective Progress Note Date: 03/05/21 Patient is a 70-year-old male with a known history of hypertension, hyperlipidemia, COPD and coronary artery disease status post cardiac catheterization on 02/23/2021 showed extremely calcified left coronary system and critical disease involving the mid to distal left circumflex where the circumflex- Consider mid to measures were recommended by cardiology presents to ER with the complaints of shortness of breath and exertional dyspnea. Patient states that his saturations were down to 80s and heart rate went up to 160s at home. Denied any chest pain. No fever no chills. No cough or sputum production. No headache or dizziness or lightheadedness. On admission blood pressure 173/106 and heart rate 114 and temperature 101 F. Saturating at 2 L on nasal cannula. Chest x-ray showed lungs are clear of consolidation. No active cardiopulmonary disease. Probably COPD. WBC 21.0 hemoglobin 17.7, sodium 132 potassium 5.7 chloride 96 BUN 28 and creatinine 0.71 troponin 0 0.044, 0.055 and NT proBNP is 1900. Procalcitonin level is 0.03 03/04/2021 Patient is currently resting in the bed. Awake alert and oriented. Breathing status is better. Currently being continued on IV Solu-Medrol 60 mg every 6 hourly due to acute COPD exacerbation. Patient is also on antibiotics of Levaquin. Currently on oxygen 2 L via nasal cannula. Cardiology was consulted due to elevated troponin level. Patient had a repeat cardiac catheterization as reported above. Laboratory showed WBC 30.4 hemoglobin 16.7, platelets 279 and sodium 131 potassium 5.6 chloride 98 BUN 15 creatinine 0.72 blood sugar is 137. Patient was given a dose of insulin regular 10 units IV and 1 amp of D50. Follow-up potassium level. Pulmonary and cardiology is on board. 03/05/2021 Patient is currently in the bed comfortably. Awake alert and oriented x3. Patient denies any chest pain. No nausea vomiting or abdominal pain. Continue prednisone 40 mg daily. Patient is currently requiring 3 L oxygen via nasal cannula. Potassium level is 5.3 today. Was given insulin D50 and repeat potassium level tomorrow. Leukocytosis is improving. Home oxygen evaluation tomorrow.. Laboratory data showed WBC 26.2 hemoglobin 16.9 and platelets 348 sodium 131 potassium 5.3 chloride 96 BUN 53 and creatinine 0.79 cardiology and pulmonary is on board. Current medications reviewed. Objective - Vital Signs Vital signs: Vital Signs Temp 98.0 F 03/05/21 16:00 Pulse 90 03/05/21 20:43 Resp 18 03/05/21 16:00 BP 108/78 03/05/21 16:00 Pulse Ox 94 L 03/05/21 16:00 Intake & Output 03/05/21 03/05/21 03/06/21 06:59 18:59 06:59 Intake Total 480 965 Output Total 475 700 200 Balance 5 265 -200 Weight 62.8 kg Intake: Oral 480 965 Output: Urine 475 700 200 - Exam PHYSICAL EXAMINATION: Patient is lying in the bed comfortably, no acute distress, awake alert and oriented.. HEENT: Normocephalic. Neck is supple. Pupils reactive. Nostrils clear. Oral cavity is moist. Ears reveal no drainage. Neck reveals no JVD, carotid bruits, or thyromegaly. CHEST EXAMINATION: Trachea is central. Symmetrical expansion.Bilateral diminished air entry and wheezing present.. CARDIAC: Normal S1, S2 with no gallops. No murmurs ABDOMEN: Soft. Bowel sounds normal. No organomegaly. No abdominal bruits. Extremities: reveal no edema. No clubbing or cyanosis Neurologically awake, alert, oriented x3 with well-coordinated movements. No focal deficits noted Skin: No rash or skin lesions. Psychiatric: Coperative. Nonsuicidal Musculoskeletal: No joint swelling or deformity. Normal range of motion. - Labs CBC & Chem 7: 03/05/21 07:53 03/05/21 07:53 Labs: Abnormal Lab Results - Last 24 Hours (Table) 03/05/21 03/05/21 03/05/21 Range/Units 06:18 07:53 07:53 WBC 26.2 H (3.8-10.6) k/uL Neutrophils # 24.3 H (1.3-7.7) k/uL Lymphocytes # 0.8 L (1.0-4.8) k/uL Sodium 131 L (137-145) mmol/L Potassium 5.3 H (3.5-5.1) mmol/L Chloride 96 L (98-107) mmol/L BUN 53 H (9-20) mg/dL POC Glucose (mg/dL) 103 H (75-99) mg/dL 03/05/21 Range/Units 20:11 WBC (3.8-10.6) k/uL Neutrophils # (1.3-7.7) k/uL Lymphocytes # (1.0-4.8) k/uL Sodium (137-145) mmol/L Potassium (3.5-5.1) mmol/L Chloride (98-107) mmol/L BUN (9-20) mg/dL POC Glucose (mg/dL) 107 H (75-99) mg/dL Assessment and Plan Assessment: Shortness of breath secondary to acute COPD exacerbation Sinus tachycardia secondary to above. Mild elevated troponin level with recent history of cardiac catheterization showed critical disease involving distal circumflex. Medical management was recommended. Hypovolemic hyponatremia Hyperkalemia Leukocytosis. No evidence of pneumonia on chest x-ray. Hypertension. Uncontrolled hyperlipidemia Previous history of smoking History of compression fracture of T7 spine DVT prophylaxis with heparin subcu Plan: Patient will be continued IV Solu-Medrol 60 mg every 6 hourly and DuoNeb's. Methylprednisone was changed to prednisone. Oxygen supplementation 3L. Patient was given a dose of Levaquin in the ER. Procalcitonin is not elevated. Leukocytosis trending down.. Tachycardia improved. cardiology was consulted due to elevated troponin level.Medical management will be continued. Otherwise patient had a recent cardiac catheterization and maximal medical therapy was recommended. Continue to follow closely for clinical improvement. Time with Patient: Greater than 30
[2021-03-06 05:59] LABS: Glucose,Whole Blood 78 mg/dL (75-99)
[2021-03-06] MEDS: INSULIN ASPART (NovoLOG) 100 UNIT/ML VIAL SQ SCH ×2 (06:16→12:04)
[2021-03-06] MEDS: PANTOPRAZOLE 40 MG TABLET PO SCH (06:47)
[2021-03-06] MEDS: IPRATROPIUM-ALBUTEROL 3 ML NEB INHALATION SCH ×3 (08:06→16:29)
[2021-03-06] MEDS: SYMBICORT 160-4.5 MCG INHALER INHALATION SCH (08:06)
[2021-03-06] MEDS: CLOPIDOGREL 75 MG TAB PO SCH (09:19)
[2021-03-06] MEDS: METOPROLOL TARTRATE 25 MG TAB PO SCH (09:19)
[2021-03-06] MEDS: ASPIRIN 81 MG PO SCH (09:19)
[2021-03-06] MEDS: guaiFENesin SYRUP 100MG/5ML 200 MG/10 ML CUP PO SCH ×2 (09:19→13:35)
[2021-03-06] MEDS: MULTIVITAMINS, THERA 1 EACH TAB PO SCH (09:19)
[2021-03-06] MEDS: LORATADINE 10 MG TAB PO SCH (09:19)
[2021-03-06] MEDS: predniSONE 20 MG TAB PO SCH (09:19)
[2021-03-06] MEDS: VITAMIN E (DL,TOCOPHERYL ACET) 400 UNIT CAP PO SCH (09:20)
[2021-03-06] MEDS: HEPARIN SODIUM,PORCINE/PF 5,000 UNIT/0.5 ML SYRINGE SQ SCH (09:20)
[2021-03-06 09:48] LABS: Basophils % (A) 0 %; Eosinophils % (A) 0 %; HCT 46.8 % (39.0-53.0); HGB 15.9 gm/dL (13.0-17.5); Lymphocytes # (A) 1.2 k/uL (1.0-4.8); Lymphocytes % (A) 7 %; MCH 32.3 pg (25.0-35.0); MCHC 33.9 g/dL (31.0-37.0); MCV 95.4 fL (80.0-100.0); Mean Platelet Volume 6.8; Monocytes % (A) 6 %; Neutrophils # (A) 15.8 k/uL (1.3-7.7); Neutrophils % (A) 87 %; Platelet Count 299 k/uL (150-450); RBC 4.91 m/uL (4.30-5.90); RDW 12.7 % (11.5-15.5); WBC 18.2 k/uL (3.8-10.6)
[2021-03-06 10:08] LABS: African American GFR (CKD) >90 (>60 ml/min/1.73 sqM); Anion Gap 2 mmol/L; Blood Urea Nitrogen 37 mg/dL (9-20); Calcium 8.6 mg/dL (8.4-10.2); Carbon Dioxide 31 mmol/L (22-30); Chloride 97 mmol/L (98-107); Glucose 75 mg/dL (74-99); Non-African American GFR(CKD) >90 (>60 ml/min/1.73 sqM); Potassium 4.7 mmol/L (3.5-5.1); Sodium 130 mmol/L (137-145)
[2021-03-06 11:36] LABS: Glucose,Whole Blood 92 mg/dL (75-99)
[2021-03-06 16:58] LABS: Glucose,Whole Blood 111 mg/dL (75-99)
[2021-03-06] MEDS: LEVOFLOXACIN 500 MG TAB PO SCH (17:28)
[2021-03-06 17:29] VITALS: BP 141/89; PULSE 100; RESP 18; TEMP 98.3
--- NOTE | 2021-03-21 10:35 | P.DS ---
Providers Date of admission: 03/02/21 18:11 Expected date of discharge: 03/06/21 Attending physician: Dayday Blakely Consults: 03/02/21 18:10 Consult Physician Routine Consulting Provider: Yordan Burris Consult Reason/Comments: Elevated troponin Do you want consulting provider notified?: Yes 03/03/21 10:07 Consult Physician Routine Consulting Provider: Alea Calderon Consult Reason/Comments: COPD exacerbation Do you want consulting provider notified?: Yes Primary care physician: Kain Smiley [place] [facility] Course: Discharge diagnosis Shortness of breath secondary to acute COPD exacerbation Sinus tachycardia secondary to above. Mild elevated troponin level with recent history of cardiac catheterization showed critical disease involving distal circumflex. Medical management was recommended. Hypovolemic hyponatremia Hyperkalemia Leukocytosis. No evidence of pneumonia on chest x-ray. Hypertension. Uncontrolled hyperlipidemia Previous history of smoking History of compression fracture of T7 spine DVT prophylaxis with heparin subcu Hospital course Patient is a 70-year-old male with a known history of hypertension, hyperlipidemia, COPD and coronary artery disease status post cardiac catheterization on 02/23/2021 showed extremely calcified left coronary system and critical disease involving the mid to distal left circumflex where the circumflex- Consider mid to measures were recommended by cardiology presents to ER with the complaints of shortness of breath and exertional dyspnea. Patient states that his saturations were down to 80s and heart rate went up to 160s at home. Denied any chest pain. No fever no chills. No cough or sputum production. No headache or dizziness or lightheadedness. On admission blood pressure 173/106 and heart rate 114 and temperature 101 F. Saturating at 2 L on nasal cannula. Chest x-ray showed lungs are clear of consolidation. No active cardiopulmonary disease. Probably COPD. WBC 21.0 hemoglobin 17.7, sodium 132 potassium 5.7 chloride 96 BUN 28 and creatinine 0.71 troponin 0 0.044, 0.055 and NT proBNP is 1900. Procalcitonin level is 0.03 03/04/2021 Patient is currently resting in the bed. Awake alert and oriented. Breathing status is better. Currently being continued on IV Solu-Medrol 60 mg every 6 hourly due to acute COPD exacerbation. Patient is also on antibiotics of Levaquin. Currently on oxygen 2 L via nasal cannula. Cardiology was consulted due to elevated troponin level. Patient had a repeat cardiac catheterization as reported above. Laboratory showed WBC 30.4 hemoglobin 16.7, platelets 279 and sodium 131 potassium 5.6 chloride 98 BUN 15 creatinine 0.72 blood sugar is 137. Patient was given a dose of insulin regular 10 units IV and 1 amp of D50. Follow-up potassium level. Pulmonary and cardiology is on board. 03/05/2021 Patient is currently in the bed comfortably. Awake alert and oriented x3. Patient denies any chest pain. No nausea vomiting or abdominal pain. Continue prednisone 40 mg daily. Patient is currently requiring 3 L oxygen via nasal cannula. Potassium level is 5.3 today. Was given insulin D50 and repeat pota ssium level tomorrow. Leukocytosis is improving. Home oxygen evaluation tomorrow.. Laboratory data showed WBC 26.2 hemoglobin 16.9 and platelets 348 sodium 131 potassium 5.3 chloride 96 BUN 53 and creatinine 0.79 cardiology and pulmonary is on board. 03/06/2021 Patient is currently lying in the bed comfortably. Methylprednisolone changed to prednisone and complete tapering course. Continue with antibiotic course. Patient did improve symptomatically. Home oxygenation will be done. Patient will require oxygen via nasal cannula 2 to 3 L. 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 Discussed with the patient and his at bedside in detail. Patient is being discharged home today. PHYSICAL EXAMINATION: Patient is lying in the bed comfortably, no acute distress, awake alert and oriented.. HEENT: Normocephalic. Neck is supple. Pupils reactive. Nostrils clear. Oral cavity is moist. Ears reveal no drainage. Neck reveals no JVD, carotid bruits, or thyromegaly. CHEST EXAMINATION: Trachea is central. Symmetrical expansion.Bilateral improved air entry and wheezing present.. CARDIAC: Normal S1, S2 with no gallops. No murmurs ABDOMEN: Soft. Bowel sounds normal. No organomegaly. No abdominal bruits. Extremities: reveal no edema. No clubbing or cyanosis Neurologically awake, alert, oriented x3 with well-coordinated movements. No focal deficits noted Skin: No rash or skin lesions. Psychiatric: Coperative. Nonsuicidal Musculoskeletal: No joint swelling or deformity. Normal range of motion. Discharge physical examination was done and vitals reviewed. Time taken more than 35 minutes in patient care out of which more than 50% was spent on counseling and coordination of care. Patient Condition at Discharge: Fair Plan - Discharge Summary Discharge Rx Participant: No New Discharge Prescriptions: New Levofloxacin [Levaquin] 500 mg PO DAILY@1800 #4 tab predniSONE See Taper PO DIRECTED #24 tab Fluticasone/Vilanterol [Breo Ellipta 100-25 Mcg Inhaler] 1 dose INHALATION DAILY #1 inhaler Metoprolol Tartrate [Lopressor] 25 mg PO BID #60 tab Clopidogrel [Plavix] 75 mg PO DAILY #30 tab Continue guaiFENesin [Mucinex] 300 mg PO QID Nitroglycerin Sl Tabs [Nitrostat] 0.4 mg SUBLINGUAL Q5M PRN #30 tab PRN Reason: Chest Pain Vitamin E 400 unit PO DAILY Ipratropium-Albuterol Nebulize [Duoneb 0.5 mg-3 mg/3 ml Soln] 3 ml INHALATION RT-QID Albuterol Sulfate [Ventolin HFA] 2 puff INHALATION RT-QID PRN PRN Reason: Shortness Of Breath Aspirin 81 mg PO DAILY #30 chew Atorvastatin [Lipitor] 20 mg PO HS #30 tab Cetirizine HCl [Zyrtec] 10 mg PO DAILY Multivitamins, Thera [Multivitamin (formulary)] 1 tab PO DAILY Discontinued Budesonide/Formoterol Fumarate [Symbicort 160-4.5 Mcg Inhaler] 2 puff INHALATION RT-BID Sulfamethox-Tmp 800-160Mg [Bactrim DS 800-160 mg] 1 tab PO Q12HR Meloxicam 15 mg PO DAILY predniSONE See Taper PO DAILY Discharge Medication List Albuterol Sulfate [Ventolin HFA] 2 puff INHALATION RT-QID PRN 02/20/21 [History] guaiFENesin [Mucinex] 300 mg PO QID 02/21/21 [History] Aspirin 81 mg PO DAILY #30 chew 02/25/21 [Rx] Atorvastatin [Lipitor] 20 mg PO HS #30 tab 02/25/21 [Rx] Nitroglycerin Sl Tabs [Nitrostat] 0.4 mg SUBLINGUAL Q5M PRN #30 tab 02/25/21 [Rx] Cetirizine HCl [Zyrtec] 10 mg PO DAILY 03/02/21 [History] Ipratropium-Albuterol Nebulize [Duoneb 0.5 mg-3 mg/3 ml Soln] 3 ml INHALATION RT-QID 03/02/21 [History] Multivitamins, Thera [Multivitamin (formulary)] 1 tab PO DAILY 03/02/21 [History] Vitamin E 400 unit PO DAILY 03/02/21 [History] Clopidogrel [Plavix] 75 mg PO DAILY #30 tab 03/06/21 [Rx] Fluticasone/Vilanterol [Breo Ellipta 100-25 Mcg Inhaler] 1 dose INHALATION DAILY #1 inhaler 03/06/21 [Rx] Levofloxacin [Levaquin] 500 mg PO DAILY@1800 #4 tab 03/06/21 [Rx] Metoprolol Tartrate [Lopressor] 25 mg PO BID #60 tab 03/06/21 [Rx] predniSONE See Taper PO DIRECTED #24 tab 03/06/21 [Rx] Follow up Appointment(s)/Referral(s): Janice Allen MD [STAFF PHYSICIAN] - 03/19/21 10:00 am (FRIDAY) Epi Rodrigues MD [STAFF PHYSICIAN] - 1 Week (OFFICES WILL CALL WITH A FOLLOW UP APPOINTMENT DATE AND TIME.) Kain Edwards III, MD [Primary Care Provider] - 03/12/21 10:30 am (FRIDAY [facility]) [facility], [NON-STAFF] - Patient Instructions/Handouts: COPD (Chronic Obstructive Pulmonary Disease) (DC), Chronic Bronchitis (DC) Activity/Diet/Wound Care/Special Instructions: Home Oxygen, Commode, and Walker - [facility] - [phone] Discharge Disposition: HOME WITH HOME HEALTH SERVICES
== END 2021-03-06 17:39 | disposition home health service (06) | DRG 190 ==
LOC: EC 14:28 → 3SCARD 18:11
PROVIDERS: ADMIT Internal Medicine; ATTEND Internal Medicine
DX: J43.9 Emphysema, unspecified (principal); J80 Acute respiratory distress syndrome; I21.4 Non-ST elevation (NSTEMI) myocardial infarction; E87.1 Hypo-osmolality and hyponatremia; Z20.822 Contact with and (suspected) exposure to COVID-19; J20.9 Acute bronchitis, unspecified; E86.0 Dehydration; E86.1 Hypovolemia; I25.10 Atherosclerotic heart disease of native coronary artery without angina pectoris; I25.84 Coronary atherosclerosis due to calcified coronary lesion; I10 Essential (primary) hypertension; R00.0 Tachycardia, unspecified; D72.829 Elevated white blood cell count, unspecified; T38.0X5A Adverse effect of glucocorticoids and synthetic analogues, initial encounter; E78.5 Hyperlipidemia, unspecified; E87.5 Hyperkalemia; I25.2 Old myocardial infarction; M48.54XD Collapsed vertebra, not elsewhere classified, thoracic region, subsequent encounter for fracture with routine healing; Z79.1 Long term (current) use of non-steroidal anti-inflammatories (NSAID); Z79.82 Long term (current) use of aspirin; Z79.51 Long term (current) use of inhaled steroids; Z79.899 Other long term (current) drug therapy; Z87.891 Personal history of nicotine dependence; Z86.59 Personal history of other mental and behavioral disorders; Z88.2 Allergy status to sulfonamides; Z82.5 Family history of asthma and other chronic lower respiratory diseases; Z82.3 Family history of stroke
CPT/HCPCS: 36415; 71046; 80048; 80053; 82550; 83605; 83735; 83880; 84145; 84484; 85025; 85610; 85730; 87070; 87205; 87635; 93005; 94640; 94760; 99285

== ENCOUNTER 2021-03-31 01:48 | Emergency (ER) | payer MEDICARE ==
[2021-03-31 02:00] VITALS: TEMP 97.6
[2021-03-31 03:01] LABS: Basophils # (A) 0.1 k/uL (0-0.2); Basophils % (A) 0 %; Eosinophils % (A) 0 %; HCT 43.1 % (39.0-53.0); HGB 14.5 gm/dL (13.0-17.5); Lymphocytes # (A) 3.1 k/uL (1.0-4.8); Lymphocytes % (A) 25 %; MCHC 33.8 g/dL (31.0-37.0); MCV 97.7 fL (80.0-100.0); Mean Platelet Volume 7.1; Monocytes # (A) 0.9 k/uL (0-1.0); Monocytes % (A) 7 %; Neutrophils % (A) 64 %; Platelet Count 319 k/uL (150-450); RBC 4.41 m/uL (4.30-5.90); RDW 13.7 % (11.5-15.5); WBC 12.5 k/uL (3.8-10.6)
[2021-03-31 03:23] LABS: Prothrombin Time 10.6 sec (9.0-12.0)
[2021-03-31 03:25] LABS: ALT 56 U/L (4-49); AST 43 U/L (17-59); African American GFR (CKD) >90 (>60 ml/min/1.73 sqM); Albumin 3.7 g/dL (3.5-5.0); Alkaline Phosphatase 70 U/L (38-126); Anion Gap 6 mmol/L; Blood Urea Nitrogen 19 mg/dL (9-20); Calcium 8.9 mg/dL (8.4-10.2); Carbon Dioxide 27 mmol/L (22-30); Chloride 103 mmol/L (98-107); Glucose 151 mg/dL (74-99); Non-African American GFR(CKD) >90 (>60 ml/min/1.73 sqM); Potassium 5.4 mmol/L (3.5-5.1); Sodium 136 mmol/L (137-145); Total Bilirubin 0.6 mg/dL (0.2-1.3)
[2021-03-31 03:28] LABS: D-Dimer 3.18 mg/L FEU (<0.60)
--- NOTE | 2021-03-31 04:20 | XR ---
EXAM: XR Chest, 2 Views CLINICAL HISTORY: ITS.REASON XR Reason: difficulty breathing TECHNIQUE: Frontal and lateral views of the chest. COMPARISON: 03/02/2021 FINDINGS: Lungs: Unremarkable. No consolidation. Pleural space: Unremarkable. No pneumothorax. Heart: Unremarkable. No cardiomegaly. Mediastinum: Unremarkable. Bones/joints: Unremarkable. IMPRESSION: No acute pulmonary process.
--- NOTE | 2021-03-31 04:49 | CT ---
EXAM: CT Angiography Chest With Intravenous Contrast CLINICAL HISTORY: ITS.REASON CT Reason: possible PE TECHNIQUE: Axial computed tomographic angiography images of the chest with intravenous contrast. CTDI is 10.67 mGy and DLP is 267.6 mGy-cm. This CT exam was performed using one or more of the following dose reduction techniques: automated exposure control, adjustment of the mA and/or kV according to patient size, and/or use of iterative reconstruction technique. MIP reconstructed images were created and reviewed. COMPARISON: No relevant prior studies available. FINDINGS: Pulmonary arteries: Unremarkable. No pulmonary embolism. Aorta: Partially visualized infrarenal abdominal aortic aneurysm measuring up to 3.0 cm in diameter with eccentric mural thrombus. No thoracic aortic aneurysm. Lungs: Unremarkable. No mass. No consolidation. Pleural space: Unremarkable. No significant effusion. No pneumothorax. Heart: Unremarkable. No cardiomegaly. No significant pericardial effusion. No evidence of RV dysfunction. Bones/joints: No acute fracture. No dislocation. Soft tissues: Unremarkable. Lymph nodes: Unremarkable. No enlarged lymph nodes. IMPRESSION: 1. No acute pulmonary embolism. 2. Moderate centrilobular emphysema. 3. Partially visualized infrarenal abdominal aortic aneurysm measuring up to 3.0 cm in diameter with eccentric mural thrombus
[2021-03-31] MEDS ORDERED: ALBUTEROL NEBULIZED 2.5 MG/3 ML INHALATION STA (05:21)
[2021-03-31] MEDS ORDERED: predniSONE 20 MG TAB PO STA (05:21)
[2021-03-31 05:30] VITALS: BP 97/74; RESP 20
[2021-03-31 05:58] VITALS: PULSE 84
--- NOTE | 2021-03-31 06:08 | ED ---
SOB HPI - General Chief Complaint: Shortness of Breath Stated Complaint: Source: patient, EMS Mode of arrival: EMS Limitations: physical limitation - History of Present Illness Initial Comments: This patient is a 70-year-old man with a history of some underlying COPD who presents to be evaluated for shortness of breath and cough that worsened about his baseline. The patient states that he had been started on a new medication for a fungal toe infection and thought that maybe there was a reaction to that or that he was having a recurrence of pneumonia. No definite fever at home. No chest pain. No hemoptysis. No leg pain or swelling. MD Complaint: shortness of breath, cough -: hour(s) Consistency: constant Improves With: nothing Worsens With: nothing Known History Of: COPD Associated Symptoms: denies other symptoms Treatments Prior to Arrival: none - Related Data Home Medications Medication Instructions Recorded Confirmed Albuterol Sulfate [Ventolin HFA] 2 puff INHALATION RT-QID PRN 02/20/21 03/02/21 guaiFENesin [Mucinex] 300 mg PO QID 02/21/21 03/02/21 Cetirizine HCl [Zyrtec] 10 mg PO DAILY 03/02/21 03/02/21 Ipratropium-Albuterol Nebulize 3 ml INHALATION RT-QID 03/02/21 03/02/21 [Duoneb 0.5 mg-3 mg/3 ml Soln] Multivitamins, Thera [Multivitamin 1 tab PO DAILY 03/02/21 03/02/21 (formulary)] Vitamin E 400 unit PO DAILY 03/02/21 03/02/21 Previous Rx's Medication Instructions Recorded Aspirin 81 mg PO DAILY #30 chew 02/25/21 Atorvastatin [Lipitor] 20 mg PO HS #30 tab 02/25/21 Nitroglycerin Sl Tabs [Nitrostat] 0.4 mg SUBLINGUAL Q5M PRN #30 tab 02/25/21 Clopidogrel [Plavix] 75 mg PO DAILY #30 tab 03/06/21 Fluticasone/Vilanterol [Breo 1 dose INHALATION DAILY #1 inhaler 03/06/21 Ellipta 100-25 Mcg Inhaler] Levofloxacin [Levaquin] 500 mg PO DAILY@1800 #4 tab 03/06/21 Metoprolol Tartrate [Lopressor] 25 mg PO BID #60 tab 03/06/21 predniSONE See Taper PO DIRECTED #24 tab 03/06/21 predniSONE 50 mg PO DAILY #4 tab 03/31/21 Allergies Allergy/AdvReac Type Severity Reaction Status Date / Time Sulfa (Sulfonamide Allergy Unknown Verified 03/02/21 16:18 Antibiotics) Review of Systems ROS Statement: Those systems with pertinent positive or pertinent negative responses have been documented in the HPI. ROS Other: All systems not noted in ROS Statement are negative. Constitutional: Denies: fever, chills Respiratory: Reports: cough, dyspnea. Denies: wheezes, hemoptysis Cardiovascular: Denies: chest pain, palpitations, orthopnea, edema, syncope Gastrointestinal: Denies: abdominal pain, nausea, vomiting Genitourinary: Denies: dysuria, hematuria Musculoskeletal: Denies: back pain Skin: Denies: rash Neurological: Denies: headache, weakness, numbness Past Medical History Past Medical History: COPD Additional Past Medical History / Comment(s): Compression fracture of the T7 spine History of Any Multi-Drug Resistant Organisms: None Reported Past Surgical History: Heart Catheterization Additional Past Surgical History / Comment(s): [place] Catheterization without stent placement 02/21/2021 Past Anesthesia/Blood Transfusion Reactions: Unable to Obtain Additional Past Anesthesia/Blood Transfusion Reaction / Comment(s): Patient has never recieved blood Past Psychological History: Depression Smoking Status: Former smoker Past Alcohol Use History: None Reported Past Drug Use History: None Reported - Past Family History Mother Family Medical History: CVA/TIA General Exam Limitations: physical limitation General appearance: alert, in no apparent distress Head exam: Present: atraumatic, normocephalic Eye exam: Present: normal appearance. Absent: scleral icterus, conjunctival injection ENT exam: Present: normal oropharynx Neck exam: Present: normal inspection Respiratory exam: Present: wheezes. Absent: respiratory distress, rales, rhonchi, stridor, accessory muscle use, decreased breath sounds, prolonged expiratory Cardiovascular Exam: Present: regular rate, normal rhythm, normal heart sounds. Absent: systolic murmur, diastolic murmur, rubs, gallop GI/Abdominal exam: Present: soft. Absent: distended, tenderness, guarding, rebound, mass Extremities exam: Present: normal inspection, normal capillary refill. Absent: pedal edema, calf tenderness Back exam: Present: normal inspection. Absent: CVA tenderness (R), CVA tenderness (L) Neurological exam: Present: alert Skin exam: Present: warm, dry, intact, normal color. Absent: rash Course Vital Signs 03/31/21 03/31/21 03/31/21 01:51 02:50 05:00 Temperature 97.6 F Pulse Rate 90 80 74 Respiratory 26 H 24 20 Rate Blood Pressure 160/103 110/85 97/74 O2 Sat by Pulse 100 100 100 Oximetry 03/31/21 03/31/21 05:49 05:58 Temperature Pulse Rate 85 84 Respiratory Rate Blood Pressure O2 Sat by Pulse Oximetry Medical Decision Making - Medical Decision Making Patient 70-year-old man here for evaluation of dyspnea. He is feeling better following a treatment here. The workup not revealing more serious than COPD exacerbation. I offered to admit patient for course of steroids and nebulized treatments but he is feeling better and at this point like to go home. Patient will discuss possibility of a reaction to the medication with his primary physician before taking further doses of that. - Lab Data Result diagrams: 03/31/21 02:49 03/31/21 02:49 Lab Results 03/31/21 03/31/21 03/31/21 Range/Units 02:49 02:49 02:49 WBC 12.5 H (3.8-10.6) k/uL RBC 4.41 (4.30-5.90) m/uL Hgb 14.5 (13.0-17.5) gm/dL Hct 43.1 (39.0-53.0) % MCV 97.7 (80.0-100.0) fL MCH 33.0 (25.0-35.0) pg MCHC 33.8 (31.0-37.0) g/dL RDW 13.7 (11.5-15.5) % Plt Count 319 (150-450) k/uL MPV 7.1 Neutrophils % 64 % Lymphocytes % 25 % Monocytes % 7 % Eosinophils % 0 % Basophils % 0 % Neutrophils # 8.0 H (1.3-7.7) k/uL Lymphocytes # 3.1 (1.0-4.8) k/uL Monocytes # 0.9 (0-1.0) k/uL Eosinophils # 0.0 (0-0.7) k/uL Basophils # 0.1 (0-0.2) k/uL PT 10.6 (9.0-12.0) sec INR 1.0 (<1.2) APTT 22.0 (22.0-30.0) sec D-Dimer 3.18 H (<0.60) mg/L FEU Sodium 136 L (137-145) mmol/L Potassium 5.4 H (3.5-5.1) mmol/L Chloride 103 (98-107) mmol/L Carbon Dioxide 27 (22-30) mmol/L Anion Gap 6 mmol/L BUN 19 (9-20) mg/dL Creatinine 0.46 L (0.66-1.25) mg/dL Est GFR (CKD-EPI)AfAm >90 (>60 ml/min/1.73 sqM) Est GFR (CKD-EPI)NonAf >90 (>60 ml/min/1.73 sqM) Glucose 151 H (74-99) mg/dL Plasma Lactic Acid Reynold (0.7-2.0) mmol/L Calcium 8.9 (8.4-10.2) mg/dL Total Bilirubin 0.6 (0.2-1.3) mg/dL AST 43 (17-59) U/L ALT 56 H (4-49) U/L Alkaline Phosphatase 70 (38-126) U/L Troponin I (0.000-0.034) ng/mL NT-Pro-B Natriuret Pep pg/mL Total Protein 6.0 L (6.3-8.2) g/dL Albumin 3.7 (3.5-5.0) g/dL 03/31/21 03/31/21 03/31/21 Range/Units 02:49 02:49 02:49 WBC (3.8-10.6) k/uL RBC (4.30-5.90) m/uL Hgb (13.0-17.5) gm/dL Hct (39.0-53.0) % MCV (80.0-100.0) fL MCH (25.0-35.0) pg MCHC (31.0-37.0) g/dL RDW (11.5-15.5) % Plt Count (150-450) k/uL MPV Neutrophils % % Lymphocytes % % Monocytes % % Eosinophils % % Basophils % % Neutrophils # (1.3-7.7) k/uL Lymphocytes # (1.0-4.8) k/uL Monocytes # (0-1.0) k/uL Eosinophils # (0-0.7) k/uL Basophils # (0-0.2) k/uL PT (9.0-12.0) sec INR (<1.2) APTT (22.0-30.0) sec D-Dimer (<0.60) mg/L FEU Sodium (137-145) mmol/L Potassium (3.5-5.1) mmol/L Chloride (98-107) mmol/L Carbon Dioxide (22-30) mmol/L Anion Gap mmol/L BUN (9-20) mg/dL Creatinine (0.66-1.25) mg/dL Est GFR (CKD-EPI)AfAm (>60 ml/min/1.73 sqM) Est GFR (CKD-EPI)NonAf (>60 ml/min/1.73 sqM) Glucose (74-99) mg/dL Plasma Lactic Acid Reynold 1.3 (0.7-2.0) mmol/L Calcium (8.4-10.2) mg/dL Total Bilirubin (0.2-1.3) mg/dL AST (17-59) U/L ALT (4-49) U/L Alkaline Phosphatase (38-126) U/L Troponin I <0.012 (0.000-0.034) ng/mL NT-Pro-B Natriuret Pep 612 pg/mL Total Protein (6.3-8.2) g/dL Albumin (3.5-5.0) g/dL Disposition Clinical Impression: COPD exacerbation Disposition: HOME SELF-CARE Condition: Fair Instructions (If sedation given, give patient instructions): COPD (Chronic Obstructive Pulmonary Disease) (ED) Prescriptions: predniSONE 50 mg PO DAILY #4 tab Is patient prescribed a controlled substance at d/c from ED?: No Referrals: None,Stated [Primary Care Provider] - 1-2 days Kain Edwards III, MD [STAFF PHYSICIAN] - 1-2 days
== END 2021-03-31 07:35 | disposition home or self-care (01) ==
LOC: EC 01:48
DX: J44.1 Chronic obstructive pulmonary disease with (acute) exacerbation (principal); F41.9 Anxiety disorder, unspecified; Z87.891 Personal history of nicotine dependence; Z79.51 Long term (current) use of inhaled steroids
CPT/HCPCS: 36415; 94640; 93005; 85379; 83880; 80053; 83605; 84484; 85025; 85610; 85730; 71046; 71275; 99285; J7512; Q9967